=== PATIENT | female | born 1935 | race Caucasian/White ===

== ENCOUNTER → 2016-09-29 | Outpatient (CLI) | payer MEDICAID, MEDICARE ==
[~2016-09-29] MED LIST: /DULO30CA OR; /GLIP10TAB PO; /MOXI40TA PO; /NEPHROTA PO; /PANT40TA OR; /PRAV20TA PO; /QUET10TA PO; /QUET25TA PO; ASPI81TA7 PO; BABY81CH PO; BENA25CA PO; CIPRO PO; CLON0.1D3 TD; CLOP75TA2 PO; DARB30SYRN IV; DIPH50CA PO; GEMF600T OR; GLIP5TAB2 OR; GLIP5TAB77 OR; HEPARIN 1,000 UNITS/ML 10ML VIAL (FOR RADIOLOGY& DIALYSIS ONLY) As Ordered ONE; HYDR4TAB OR; INSULIN LANTUS SC; ISOVUE-300 61% 50ML VIAL (Q9967) As Ordered ONE; KETO5OPD OD; LEVAQUIN; LIDOCAINE W/EPINEPHRINE 1% 20ML VIAL As Ordered ONE; LISI20TA5 OR; LISI40TAB PO; LOPR50TA PO; LOVAZA PO; NEPHRO-VITE RX PO; NEUR100C OR; NIAS500T2 OR; NORV5TAB PO; OMEP20CA3 PO; OMEP20TA7 PO; PHOSLO667 MG OR; PLAV75TA2 OR; PREDOPD OD; RENVELA PO; SENS30TA PO; SEVE80TAB PO; SODIUM BICARBONATE 8.4% INJ 50MEQ 50 ML VIAL As Ordered ONE; SYNT25TA PO; TRIC145T19 OR; TUMS500C PO; TYLE325T5 PO; ULTR50TA PO; VANC25CA IV; VITA500047 PO; VITAMIN D50000 UNT OR; ZOCO40TA OR; [UNRECOGNIZED DRUG - CODE] OR; fentaNYL 100 MCG/2 ML INJECTION (J3010) As Ordered ONE; santyl TOP
--- NOTE | 2016-09-29 14:13 | REPKIM ---
CLINICAL HISTORY: Patient with history of end stage renal disease is receiving on going hemodialysis via a tunneled hemodialysis catheter in the right internal jugular vein. The existing catheter was partially pulled back with its cuff outside the skin tract. Patient presents with catheter dysfunction. PROCEDURE PERFORMED: 1. Superior Vena Cavagram/Catheter injection 2. Fibrin Sheath Disruption 3. Tunneled Dialysis Catheter Replacement INTERVENTIONALIST: Melida Gongora MD CONSENT: The risks, benefits and alternatives to the procedure were explained to the patient and informed written consent was obtained. MEDICATIONS: Local Lidocaine 2% CONTRAST: 10 mL Isovue 300 EBL: 15 mL FLUORO TIME: 2.6 minutes DEVICES USED: 12 mm x 4cm balloon Lot#[id number], 14.5F 19-cm Palindrome Catheter Lot#[id number] PROCEDURE/FINDINGS: The patient was brought to the interventional radiology suite where a timeout procedure was performed. The patient was placed in the supine position and the right upper chest and existing indwelling catheter prepped and draped in a sterile fashion. Local anesthesia to the catheter exit site was administered. Heparin contents in the existing catheter ports were discarded. A hydrophilic guidewire was introduced through one of the ports of the catheter, and under fluoroscopy advanced across the right atrium into the inferior vena cava. The existing catheter was pulled back until its tip was just within the accessed vein. Contrast was injected and a central venogram was performed. This showed diffuse fibrin sheath. The superior vena cava is patent. The existing catheter was then removed over the guidewire in its entirety. Over the guidewire, a 12- mm diameter balloon was advanced and mechanical fibrin sheath disruption by inflation of the balloon was performed. A new 19-cm [tip to cuff] length, 14.5- Portuguese double lumen Palindrome catheter was advanced over the guidewire. Guidewire was removed. The catheter was secured at the skin exit site with 2-0 Prolene suture. There is free aspiration of blood from all ports of the catheter. The ports of the catheter were locked with heparin (concentration 1000 units/cc). A sterile dressing was then applied. Post procedure chest radiograph shows the tip of the catheter is at the right atrium. The patient tolerated the procedure well with no immediate complications. This procedure was performed with fluoroscopic guidance. Dr. Gongora was present. IMPRESSION: Fibrin sheath disruption/maceration and Tunneled hemodialysis catheter replacement as discussed above. The new catheter is ready for use. cc: Nicci Enriquez MD MTDD
== END | disposition home or self-care (01) ==
LOC: M IRPRO 11:59
PROVIDERS: ATTEND Internal Medicine Nephrology
DX: T82.42XA Displacement of vascular dialysis catheter, initial encounter (principal); N18.6 End stage renal disease
CPT/HCPCS: 36581; 36595; C1725; C1750; C1769; Q9967

== ENCOUNTER 2016-11-27 12:24 | Inpatient (IN) | payer MEDICARE, MEDICAID ==
[~2016-11-27] VITALS: Ht 157.5 cm; Wt 70.2 kg
[~2016-11-27 12:24] MED LIST changes: -HEPARIN 1,000 UNITS/ML 10ML VIAL (FOR RADIOLOGY& DIALYSIS ONLY) As Ordered ONE; -ISOVUE-300 61% 50ML VIAL (Q9967) As Ordered ONE; -LIDOCAINE W/EPINEPHRINE 1% 20ML VIAL As Ordered ONE; -SODIUM BICARBONATE 8.4% INJ 50MEQ 50 ML VIAL As Ordered ONE; -fentaNYL 100 MCG/2 ML INJECTION (J3010) As Ordered ONE
[2016-11-27 15:21] VITALS: BP 127/64
[2016-11-27 15:49] LABS: MEAN CORPUSCULAR HEMOGLOBIN 33.4 pg (27.0-33.0); MEAN CORPUSCULAR HGB CONC 31.8 g/dl (32.0-36.5); RED CELL DISTRIBUTION WIDTH 16.1 % (11.5-14.5); WHITE BLOOD COUNT 8.6 K/mm3 (4.0-10.0)
[2016-11-27 15:58] LABS: INR 1.13
[2016-11-27 16:25] LABS: ALBUMIN 3.2 GM/DL (3.2-5.2); CALCIUM LEVEL 9.6 MG/DL (8.8-10.2); CREATININE FOR GFR 6.93 MG/DL (0.55-1.02); PHOSPHORUS LEVEL 4.1 MG/DL (2.5-4.9); POTASSIUM SERUM 5.1 MEQ/L (3.5-5.1)
[2016-11-27] MEDS ORDERED: HEPARIN 1,000 UNITS/ML 10ML VIAL (FOR RADIOLOGY& DIALYSIS ONLY) XX ONE (16:30)
[2016-11-27] MEDS ORDERED: DARBEPOETIN 300 MCG/0.6 ML *DIALYSIS* SYRINGE (J0882) IV SCH (16:30)
[2016-11-27] MEDS: HumaLOG INSULIN (NovoLOG) PER UNIT SC SCH ×2 (17:30→21:00)
--- NOTE | 2016-11-27 17:57 | HPE ---
DATE OF ADMISSION: 11/27/2016 An 81-year-old white female who is a dialysis patient. She presented this morning to [facility] with shortness of breath, worsening of her chronic anemia and heme-positive stools. She was felt to be in congestive heart failure. Today was a day she was going to be scheduled for dialysis. She was transferred to [facility] for dialysis and blood transfusion. She did not have an EKG and I have one of those ordered. PERTINENT LABORATORY DATA: BUN of 73, creatinine of 6, troponin was 0.037. Her hematocrit was 23.4. She denies a prior history of congestive heart failure. Denies a history of known coronary disease, but I believe she does have some cognitive deficits. She does have issues with memory and I note among her medications she is on Aricept. MEDICATIONS: - baby aspirin. - She is on Sensipar 30 mg biweekly - Plavix 75 mg daily - Synthroid 25 mcg daily - metoprolol 25 mg daily - vitamin D 5000 units by mouth every - Aricept 10 mg a day - lisinopril 5 mg a day - pravastatin 10 mg a day - Pepcid 20 mg a day - Imdur 30 mg a day - Renvela 80 mg three times a day - amlodipine one tablet a day - glipizide one tablet a day - Seroquel one tablet a day The last several medications do not have a strength. - vitamin B complex ALLERGIES: See lists multiple allergies - CEPHALEXIN, CLONIDINE, CODEINE, MORPHINE, OXYCODONE AND PENICILLIN and CROSS REACTORS. However, I got a note from [place] that says she can take amoxicillin with no problem. PAST MEDICAL HISTORY: She has had left mastectomy for cancer in the early 70s. She is not sure how she was treated, but she has not had any followup. 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 Diabetes, hypertension, hyperlipidemia, toes amputated on her right foot for neuropathy, cholecystectomy, presumptive dementia, chronic anemia, secondary hyperparathyroidism, hypertension. She also has a history of diverticulosis and diverticulitis. FAMILY HISTORY: Irrelevant. SOCIAL HISTORY: She lives with a family member. She had been a smoker, stopped smoking many years ago. No alcohol. REVIEW OF SYSTEMS: General: No constitutional symptoms. HEENT: She denies any issues. Denies issues with her eyesight. Cardiopulmonary: She is short of breath. No chest pain. Gastrointestinal (GI): She is hemoccult positive stools, worsening anemia. No abdominal symptoms. Genitourinary (): Negative. Musculoskeletal: Leg cramps during dialysis. Vascular: Negative. Hematologic: Anemia. Psychiatric: She is on Seroquel for something. She does have associated dementia, I believe. Dermatologic: Negative. PHYSICAL EXAMINATION Blood pressure 104/80, pulse is 74, respirations 16, saturations are 98% on 2 liters. General appearance: Overweight white female. HEENT: Unremarkable. Difficult to assess neck veins. Neck is very full. She might be someone we might want to screen for obstructive sleep apnea (ELIZABETH). She also has as a small oral airway. Heart: Regular. We have an EKG pending. Chest: Bilateral rales. No dullness. She has a dialysis catheter right subclavian area. Abdomen: Obese, otherwise normal. Extremities: Without clubbing, cyanosis or edema except for chronic edema left arm. She does have trace ankle edema bilaterally. Toes of the right foot are absent. Neurologic: She does have diabetic neuropathy and mild dementia. IMPRESSION/PLAN: 1. Congestive heart failure (CHF). Will check EKG and cardiac enzymes. The patient will read receive an echocardiogram. 2. Anemia exacerbating underlying CHF. The patient is scheduled for blood transfusion. 3. Chronic renal failure with volume overload; she is having dialysis. 4. Secondary hyperparathyroidism. The patient continues on Renvela and Sensipar. 5. Suspect obstructive sleep apnea (ELIZABETH). It might be worthwhile to do an ELIZABETH screen. 6. History of breast cancer with left mastectomy. 7. Hypertension. She is on several medications for same. 8. Hyperlipidemia. Will continue her on her statin. 9. Diabetes with complications. She is on glipizide. This probably is not the best agent in somebody with end-stage renal disease. Will monitor sugars. 10. Hypothyroid. She is on replacement. Will check a thyroid-stimulating hormone (TSH). ADDENDUM: The patient is on Plavix and aspirin. She is not a good historian. She vehemently denies a history of coronary artery disease or previous heart catheterization or angioplasty or stents. I see Dr. Enriquez has stopped her aspirin and Plavix. This certainly would be appropriate unless she has had a drug-eluting stent in the last 6 months. I cannot ascertain that this evening.
[2016-11-27] MEDS: (RENVELA) SEVELAMER **CARBONate** 800 MG TAB PO SCH (18:00)
[2016-11-27] MEDS ORDERED: GLUCOSE 4 GM CHEW TABLET PO PRN (18:00)
[2016-11-27] MEDS ORDERED: DEXTROSE 50% 50 ML SYRINGE IV PRN (18:00)
[2016-11-27] MEDS ORDERED: GLUCAGON FOR INJ 1 MG VIAL (J1610) SC PRN (18:00)
[2016-11-27] MEDS ORDERED: traMADol 50 MG TAB PO PRN (19:00)
[2016-11-27] MEDS ORDERED: METO1TAB87 PO (19:51)
[2016-11-27] MEDS ORDERED: DRIS50002 PO (19:51)
[2016-11-27] MEDS ORDERED: FAMO20TA PO (19:51)
[2016-11-27] MEDS ORDERED: LISI-542 PO (19:51)
[2016-11-27] MEDS ORDERED: PRAV10TA4 PO (19:51)
[2016-11-27] MEDS ORDERED: QUET1TAB8 PO (19:51)
[2016-11-27] MEDS ORDERED: CINA30TA PO (19:51)
[2016-11-27] MEDS ORDERED: CLOP75TA2 PO (19:51)
[2016-11-27] MEDS ORDERED: GLIP5TAB8 PO (19:51)
[2016-11-27] MEDS ORDERED: LEVO25TA5 PO (19:51)
[2016-11-27] MEDS ORDERED: NORV5TAB PO (19:51)
[2016-11-27] MEDS ORDERED: RENV2TAB PO (19:51)
[2016-11-27] MEDS ORDERED: DONETAB6 PO (19:51)
[2016-11-27] MEDS ORDERED: RENATAB5 PO (19:51)
[2016-11-27] MEDS ORDERED: ASPI1TAB PO (19:51)
[2016-11-27] MEDS ORDERED: CRAN450T4 PO (19:51)
[2016-11-27] MEDS ORDERED: ISOS30TA4 PO (19:51)
[2016-11-27] MEDS ORDERED: HEPARIN DRIP 25,000 UNITS in APPROPRIATE DILUENT 1 EA IV SCH (20:19)
[2016-11-27 20:23] LABS: ABG BASE EXCESS -4.5 (-2.0-2.0); ABG HCO3 21.3 MEQ/L (22.0-26.0); ABG PARTIAL PRESSURE CO2 42.3 mmHg (35.0-45.0); ABG PARTIAL PRESSURE O2 318.2 mmHg (75.0-100.0); ABG STANDARD HCO3 20.8 MEQ/L (22.0-26.0); ABG TOTAL CO2 22.6 MEQ/L (23.0-31.0)
[2016-11-27] MEDS ORDERED: HEPARIN SOD (PORCINE) 5000 UNITS/ML VIAL IV PRN (20:30)
[2016-11-27] MEDS ORDERED: HEPARIN SOD (PORCINE) 5000 UNITS/ML VIAL IV ONE (20:30)
[2016-11-27] MEDS ORDERED: MORPHINE 2 MG/ML 1ML SYRINGE IV PRN (20:45)
[2016-11-27 20:50] LABS: MEAN CORPUSCULAR HEMOGLOBIN 32.6 pg (27.0-33.0); MEAN CORPUSCULAR HGB CONC 30.7 g/dl (32.0-36.5); MEAN CORPUSCULAR VOLUME 106.4 fl (80.0-96.0); RED CELL DISTRIBUTION WIDTH 16.7 % (11.5-14.5); WHITE BLOOD COUNT 9.2 K/mm3 (4.0-10.0)
[2016-11-27 20:54] VITALS: BP 133/66
[2016-11-27 20:56] LABS: INR 1.06
[2016-11-27 21:07] LABS: ALBUMIN 3.3 GM/DL (3.2-5.2); ALBUMIN/GLOBULIN RATIO 0.8 (1.00-1.93); BILIRUBIN,TOTAL 0.4 MG/DL (0.2-1.0); CALCIUM LEVEL 9.1 MG/DL (8.8-10.2); CREATININE FOR GFR 3.9 MG/DL (0.55-1.02); GLOMERULAR FILTRATION RATE 11.7 (>32); POTASSIUM SERUM 4.1 MEQ/L (3.5-5.1); TOTAL PROTEIN 7.4 GM/DL (6.4-8.2)
[2016-11-27] MEDS: PANTOPRAZOLE 40MG INJ (PROTONIX) (C9113) IV SCH (21:37)
[2016-11-27] MEDS: METOPROLOL TART 25 MG TABLET PO SCH (21:38)
[2016-11-27] MEDS: QUEtiapine FUMARATE 25 MG TAB PO SCH (21:38)
[2016-11-27] MEDS: PRAVASTATIN 10 MG TAB PO SCH (22:47)
--- NOTE | 2016-11-27 22:50 | REP ---
Clinical: Shortness of breath. Comparison: 07/02/2012. Findings: Double-lumen dialysis catheter with tip in the right atrium. The cardiac silhouette is normal. Right suprahilar mass lesion cannot be excluded. Diffuse chronic interstitial changes noted including linear scarring at the left base. No obvious effusion. No pneumothorax. Skeletal structures intact. Impression: Right suprahilar mass suspected. Chest CT with contrast recommended. Underlying chronic interstitial changes. Signed by David Ledesma MD 11/27/2016 10:42 P
[2016-11-27 23:59] VITALS: BP 110/82
--- NOTE | 2016-11-27 23:59 | CR ---
DATE OF CONSULTATION: 11/27/2016 REQUESTING PHYSICIAN: Dr. Mena CONSULTING PHYSICIAN: Dr. Enriquez REASON FOR CONSULTATION: Management of end-stage renal disease, hemodialysis, and fluid overload. CHIEF COMPLAINT: Patient was transferred from [facility] for worsening of her anemia along with melanotic stools and shortness of breath, and today is patient's day of dialysis. HISTORY OF PRESENT ILLNESS: Barbra Goetz is an 81-year-old female with a past medical history significant for end-stage renal disease, on hemodialysis every Sunday, Sunday, Sunday. Today is her day of dialysis. When patient got up today morning, she was having worsening shortness of breath. Patient was taken to the emergency room at [facility] by her family members. Over there, as per emergency room (ER) documentation, patient was short of breath. She was found to have Hemoccult-positive melanotic stools. She was significantly anemic over there with a hemoglobin of 7.1. Since today, patient could not get dialysis as outpatient, and she needed blood transfusion as well, and she was short of breath. The ER physician got in touch with the nephrology service and requested the patient to be transferred to [facility] for treatment of anemia, shortness of breath, and need to do hemodialysis with blood transfusion. When patient arrived to [facility], she was not in any apparent respiratory distress; however, because of patient's abnormal labs and patient missing hemodialysis today, she got our urgent attention. I went to the hospital, saw the patient, arranged her urgent hemodialysis, and she was started on dialysis as per regular schedule and her regular daily regimen. I ordered 2 units of packed red blood cells (PRBC) transfusion as well; however, while she was getting hemodialysis blood could not be arranged because of the presence of antibodies. When I examined the patient at the bedside, she was afebrile and hemodynamically stable. She was not in any apparent distress at that time. PAST MEDICAL HISTORY: 1. End-stage renal disease, on hemodialysis. 2. History of cancer (CA) breast, status post left mastectomy. 3. Chronic left upper arm lymphedema. 4. Diabetes mellitus, type 2. 5. History of congestive heart failure in the past. 6. History of dementia. 7. Hypothyroidism. 8. Hypertension. 9. Hyperlipidemia. PAST SURGICAL HISTORY: 1. Left-sided mastectomy. 2. Status post placement of right internal jugular (IJ) tunneled hemodialysis catheter. 3. 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 ALLERGIES: Patient is allergic to CALCIUM ACETATE, CEPHALOSPORIN, CLONIDINE, CODEINE, HYDROCODONE, MORPHINE, OXYCODONE, PENICILLINS. MEDICATIONS: On transfer from [facility] included: - aspirin 81 mg by mouth daily - Sensipar 30 mg by mouth twice a week - Plavix 75 mg by mouth daily - levothyroxine 25 mcg by mouth daily - metoprolol 25 mg by mouth daily - vitamin D 50,000 units by mouth once a week - donepezil 10 mg by mouth daily - lisinopril 5 mg by mouth daily - pravastatin 10 mg by mouth daily - famotidine 20 mg by mouth daily - isosorbide 30 mg by mouth daily - Renvela 800 mg by mouth three times a day - amlodipine one tablet daily - glipizide one tablet daily - Seroquel one tablet daily - Brittney-Serena one tablet daily FAMILY HISTORY: No significant family history of end-stage renal disease requiring hemodialysis. SOCIAL HISTORY: Patient is a former smoker. She denies any illicit drug use or alcohol abuse, and she lives with her family. REVIEW OF SYSTEMS: CONSTITUTIONAL: Patient denies any fevers, chills, or rigors. EYES: She denies any blurry vision or double vision. ENT: She denies any dysphagia, odynophagia, or ear discharge. CARDIOVASCULAR: Patient reported shortness of breath this morning, but she denies any chest pain or palpitations. RESPIRATORY: Patient reported shortness of breath when she got up this morning, but she denies any cough or wheezing. GASTROINTESTINAL: She denies any nausea, vomiting, or constipation. GENITOURINARY: She denies any dysuria or hematuria. MUSCULOSKELETAL: Patient reported having leg cramps during ultrafiltration while she is being dialyzed. HEMATOLOGICAL/ONCOLOGICAL: Patient reports anemia. Her hemoglobin was 7.1 on being transferred over here. PSYCHIATRIC: Patient has history of dementia and anxiety disorder. Again, she denies any rashes or ulcers. CENTRAL NERVOUS SYSTEM: She denies any seizures or strokes. All other review of systems is negative. PHYSICAL EXAMINATION: GENERAL: Patient is awake, alert, oriented times three, lying in bed getting hemodialysis done, having intermittent leg cramps. VITAL SIGNS: Temperature is 97.7 degrees Fahrenheit, blood pressure is 127/64, pulse is 80, respiratory rate of 20, saturating 99% on nasal cannula at 2 liters. HEAD AND NECK: Extraocular muscles intact. Pupils equally round and reactive to light. Mucous membranes are moist. Neck is supple. I could not assess the jugular venous distention (JVD) because of patient's body habitus. CARDIOVASCULAR: S1, S2, regular rate. No murmur, rub, or gallop. Patient has left upper arm lymphedema, and patient has 2+ pitting edema of the bilateral lower extremities. RESPIRATORY: Chest is clear to auscultation bilaterally. Mildly decreased breath sounds at the bases. Otherwise no rales or rhonchi. ABDOMEN: Abdomen is obese, soft. Positive bowel sounds. Nontender. No ascites. No organomegaly. EXTREMITIES: Patient has right transmetatarsal amputation, and she has lymphedema of the left upper extremity because of left-sided mastectomy and lymph node dissection. CENTRAL NERVOUS SYSTEM: No focal neurological deficit. Power is 5/5 in bilateral upper extremities. PSYCHIATRIC: Normal mood and affect. SKIN: No rashes or ulcers. ARTERIOVENOUS ACCESS: Patient has a right IJ tunneled hemodialysis catheter. LABORATORY REVIEW: CBC showed a WBC 8.6, hemoglobin is 7.4, hematocrit is 23.2, platelets are 243. INR is 1.06. D-dimer is 2783. BMP done today showed sodium 140, potassium 5.1, chloride 102, bicarbonate 28, BUN 79, creatinine is 6.9, calcium 9.6, phosphorus 4.1. Troponin 0.04. Albumin is 3.2. IMAGING: A chest x-ray done today in the evening: Positive mild vascular congestion and right-sided suprahilar opacity. Official report is still pending. CURRENT INPATIENT MEDICATIONS: - Sensipar 30 mg by mouth Sunday and Sunday - Aranesp 300 mcg intravenous (IV) was given with hemodialysis - Aricept 10 mg by mouth daily - insulin sliding scale - Imdur 30 mg by mouth daily - levothyroxine 25 mcg by mouth daily - lisinopril 5 mg by mouth daily - metoprolol 25 mg by mouth twice a day with holding parameters - Protonix 40 mg IV every 12 hours - pravastatin 10 mg at bedtime - Seroquel 25 mg by mouth at bedtime - Renvela 800 mg by mouth with meals - tramadol 50 mg every 8 hours for pain ASSESSMENT: An 81-year-old female with past medical history of end-stage renal disease, on hemodialysis, history of left-sided mastectomy, chronic left upper arm lymphedema, admitted at this time because of worsening shortness of breath, symptomatic anemia, and positive Hemoccult stools as per transfer records from [facility]. PLAN: 1. Shortness of breath. Patient clinically has lower extremity edema, and her left upper arm lymphedema is chronic; however, we tried to emergently hemodialyze this patient. We tried to do the ultrafiltration, but patient became very symptomatic with severe leg cramps. She was in significant pain, and she also kept on dropping blood pressure. We could not successfully remove much fluid off of her. Total ultrafiltration after fluid boluses was 600 mL only. Patient needs further workup of her shortness of breath. She needs CT chest with IV contrast to rule out the possibility of infiltrate versus obstruction versus pulmonary embolism (PE). I will re-evaluate the patient tomorrow morning. If needed, she will get further hemodialysis. 2. Symptomatic anemia with possible GI bleed. I ordered 2 units of PRBC transfusion to be given with hemodialysis today; however, blood could not be arranged, because patient has antibodies positive. Patient can get blood transfusion whenever it is arranged, and if needed we can do another hemodialysis session tomorrow morning. I already discussed the case with Dr. Escalera. He recommended keeping the patient on liquid diet. Continue IV Protonix, and Dr. Escalera will order the preparation and will plan to do upper and lower GI endoscopy on 11/29/2016. 3. Hypertension. Patient's blood pressure is acceptable at this time. I have placed her on a lower dose of antihypertensive regimen because of possible GI bleed. Continue current dose of isosorbide 30 mg by mouth daily, lisinopril 5 mg by mouth daily, metoprolol 25 mg by mouth twice a day, and all of these medications have holding parameters on them. 4. Secondary hyperparathyroidism. Continue current dose of Sensipar 30 mg by mouth Sunday and Sunday. 5. Diabetes mellitus, type 2. Patient's oral hypoglycemics are on hold. She is currently on insulin sliding scale. Continue sliding scale at this moment. 6. Hypothyroidism. Continue current dose of levothyroxine 25 mcg by mouth daily. 7. Chronic kidney disease, mineral bone disease. Continue current dose of Renvela 800 mg by mouth three times a day with meals. 8. History of dementia. Continue current dose of Aricept 10 mg by mouth daily. DISPOSITION: Patient needs to stay in the progressive care unit (PCU) until further workup for etiology of her shortness of breath is done. If patient becomes more symptomatic, she can be placed on bilevel positive airway pressure (BiPAP). I shall re-evaluate the patient tomorrow morning for any need to do further hemodialysis. The plan of care was discussed with Dr. Mena and with the on-call hospitalist today in the evening, Dr. Poole.
[2016-11-28] VITALS (12 sets, daily range): BP systolic 99–161; BP diastolic 55–92
[2016-11-28 00:38] LABS: MEAN CORPUSCULAR HEMOGLOBIN 33.3 pg (27.0-33.0); MEAN CORPUSCULAR HGB CONC 31.4 g/dl (32.0-36.5); RED CELL DISTRIBUTION WIDTH 16.2 % (11.5-14.5); WHITE BLOOD COUNT 9.2 K/mm3 (4.0-10.0)
[2016-11-28] MEDS ORDERED: FUROSEMIDE 40 MG/4 ML VIAL (J1940) IV ONE (04:00)
[2016-11-28] MEDS: LEVOTHYROXINE 25MCG TABLET (0.025MG) PO SCH (06:43)
[2016-11-28] MEDS: (RENVELA) SEVELAMER **CARBONate** 800 MG TAB PO SCH ×3 (06:43→17:10)
[2016-11-28] MEDS: PANTOPRAZOLE 40MG INJ (PROTONIX) (C9113) IV SCH ×2 (06:43→22:28)
[2016-11-28] MEDS: HumaLOG INSULIN (NovoLOG) PER UNIT SC SCH ×4 (07:34→21:00)
[2016-11-28] MEDS ORDERED: ISOVUE-370 76% 100ML VIAL (Q9967) As Ordered ONE (08:45)
[2016-11-28] MEDS ORDERED: METOPROLOL TART 25 MG TABLET PO SCH (09:00)
--- NOTE | 2016-11-28 09:17 | REP ---
Clinical: Right suprahilar mass. Technique: Axial contrast enhanced images from the thoracic inlet to the upper abdomen using 100 ml Isovue 370 intravenous contrast material with coronal and sagittal re-formations. Findings: A 7.5 x 7.5 x 6.9 cm middle mediastinal mass is identified arising above the right main pulmonary artery having central calcification and mild enhancement as well as mass effect on the adjacent structures including trachea and vasculature. Further soft tissue within the mediastinum suggests elements of conglomerate lymph nodes. Differential diagnosis includes, but is not limited to lymphoma, metastatic disease, bronchogenic neoplasm as well as germ cell tumors. Extensive atherosclerotic changes to the thoracic aorta and coronary arteries noted along with mild cardiomegaly. No pericardial effusion is appreciated. The lung gilmore demonstrate diffuse chronic interstitial changes with scattered scarring and fibrosis. 1.6 cm mass lesion identified in the posterior paramediastinal right upper lobe (image 35) which may reflect satellite lesion. The subtle scattered areas of ground-glass opacity and smaller densities are nonspecific. Bibasilar atelectasis and small pleural effusions are identified. Musculoskeletal structures demonstrate age-related degenerative changes. Aorta and vasculature demonstrate extensive atherosclerotic changes. An abdominal aortic aneurysm measures 4.8 cm maximal AP diameter and appears to extend below the level of the examination. Impression: 1. Large right suprahilar mediastinal mass with areas of subtle enhancement and scattered calcifications. Differential diagnosis includes lymphoma, metastatic disease, bronchogenic neoplasm as well as germ cell tumors. A smaller 1.6 cm similar lesion is identified in the posterior right paramediastinal right upper lobe along with suspected subtle conglomerate mediastinal and hilar adenopathy. 2. Bibasilar atelectasis/consolidations with small pleural effusions and underlying diffuse chronic changes. 3. Abdominal aortic aneurysm along with extensive atherosclerotic changes to the vasculature. Signed by David Ledesma MD 11/28/2016 09:09 A
[2016-11-28 10:04] LABS: MEAN CORPUSCULAR HGB CONC 32.9 g/dl (32.0-36.5); RED CELL DISTRIBUTION WIDTH 19.2 % (11.5-14.5); WHITE BLOOD COUNT 7.7 K/mm3 (4.0-10.0)
[2016-11-28 10:23] LABS: MEAN CORPUSCULAR VOLUME 98.8 fl (80.0-96.0)
[2016-11-28] MEDS: METOPROLOL TART 25 MG TABLET PO SCH ×2 (10:25→22:27)
[2016-11-28] MEDS: DONEPEZIL 5 MG TAB PO SCH (10:25)
[2016-11-28] MEDS ORDERED: LIDOCAINE 1% MDV 20ML VIAL As Ordered ONE (13:31)
--- NOTE | 2016-11-28 13:50 | CR ---
DATE OF CONSULTATION: 11/28/2016 PULMONARY CRITICAL CARE SERVICE CONSULTATION I was called to see this patient regarding increasing dyspnea. She was admitted from [facility], where she presented with shortness of breath, was found anemic, and was found to have an occult positive stool test. Having been brought to [facility], she was given a trial of dialysis but developed severe leg cramps. The patient feels that her dyspnea has developed slowly over the past several weeks. Her ability to ambulate is limited by orthopedic constraints. She does admit to some cough. No sputum production. No chest pain. She has had no hemoptysis. Her appetite has been quite good. She has no night sweats. Her past pulmonary history includes 15 pack-years of smoking. She quit 25 years ago. She has no occupational risks identified. No history of tuberculosis exposure. She has never suffered a deep venous thrombosis (DVT) nor a pulmonary embolism. Her past medical history is quite extensive with psychiatric disease, hypertension, diabetes, chronic kidney disease dialysis dependent, congestive heart failure, atherosclerotic vascular disease status post bilateral carotid surgery, breast cancer status post left-sided mastectomy, cerebrovascular accident (CVA) with right-sided weakness, lymphedema in left upper extremity, amputation transtarsal right foot. hypothyroidism, and dementia. FAMILY HISTORY: Includes primarily cardiac disease. SOCIAL HISTORY: A reformed smoker. She has a 15 pack-year history, quit 25 years ago. Does not take alcohol. Lives with her supportive family. She has four adult children in the area. REVIEW OF SYSTEMS: Constitutional: She reports no significant changes in her appetite or her weight. HEENT: She has some mild visual impairment. No difficulty with smell or taste. Cardiovascular: She denies typical anginal-type chest pain, orthopnea, or paroxysmal nocturnal dyspnea. Gastrointestinal (GI): There is no history of nausea and vomiting. She is prone to constipation and no history of diarrhea. Genitourinary (): She has chronic renal failure, is on dialysis for at least the past 7 years. Endocrine: She has a history of diabetes, hypothyroidism on replacement therapy, and has had pseudohyperparathyroidism. Neurologic: There is a history of prior CVA with right upper extremity weakness, for the most part resolved. There is no history of seizure disorder. Musculoskeletal: She has diffuse arthritis, required an amputation of her right foot, and uses a walker to ambulate. On physical examination, she appears to be awake and alert. She is oriented to place and person. Her temperature is 98, pulse rate 75, respirations 16, blood pressure 115/70. HEENT: Oral and nasal mucosa are pink. There is a right-sided dialysis catheter indwelling. There does appear to be fullness in the right supraclavicular fossa and a palpable mass there. Jugular veins are somewhat difficult to appreciate. The carotid upstroke is sluggish. There is evidence of remote carotid surgery. Heart sounds are regular without appreciable murmur. Her breath sounds are diminished in the bases. No focal sounds are appreciated. Chest: Is symmetric. Moves symmetrically. Abdomen is soft and obese. Extremities: She has a right transtarsal amputation of her foot. Peripheral pulses quite diminished but palpable in the wrists. DIAGNOSTIC STUDIES: Her white cell count is 7.7, hemoglobin 9.5, hematocrit 29, platelet count 189,000. Sodium 135, potassium 4.1, chloride 100, CO2 25, BUN 36, creatinine 3.9, glucose 233, lactic acid on admission was 2.9, repeat 1.5. Her arterial blood gases show a pH of 7.32, pCO2 42, pO2 318. PT is 13, PTT 28. Chest x-ray and CT scans were reviewed showing a very large mediastinal mass. IMPRESSION: 1. Large mediastinal mass with vascularity. 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 2. Remote smoking history. 3. Multiple medical comorbidities. RECOMMENDATION: I discussed the case with nephrology. We will proceed with attempted transthoracic needle aspiration to establish histopathologic diagnosis of the mediastinal mass. If successful, we will pursue appropriate therapy. If unsuccessful, we will further consider fiberoptic bronchoscopy with endobronchial ultrasound and/or mediastinoscopy to establish definitive diagnosis, given the significant degree of airway collapse. Thank you for allowing me to consult in the care of this patient. If there are questions, please do not is contact me. Adam Colby, DO
--- NOTE | 2016-11-28 14:42 | IPNPDOC ---
Subjective Date Seen The patient was seen on 11/28/16. Subjective Chief Complaint/HPI The patient is a 81-year-old female admitted with a reason for visit of Fluid Overload And Symptomatic Anemia. General: Denies: Chills, Night Sweats Constitutional: Denies: Chills, Fever Eyes: Denies: Pain, Vision change ENT: Denies: Head Aches, Ear Pain Skin: Denies: Rash, Lesions Pulmonary: Reports: Dyspnea, Cough Cardiovascular: Denies: Chest Pain, Palpitations Gastrointestinal: Denies: Nausea, Vomiting, Abdominal Pain Genitourinary: Denies: Dysuria, Frequency Hematologic: Denies: Bruising, Bleeding Excessively Objective Physical Examination General Exam: Positive: Alert, Cooperative, No Acute Distress ENT Exam: Positive: Atraumatic, Mucous membr. moist/pink Chest Exam: Positive: Rales (faint bibailar rales noted on auscultation), Diminished, Negative: Wheezing Heart Exam: Positive: Rate Normal, Normal S1, Normal S2 Abdomen Exam: Positive: Soft, Negative: Tenderness Extremity Exam: Positive: Other (LUE swelling, chronic lymphedema), Negative: Tenderness Assessment /Plan Plan/VTE VTE Prophylaxis Ordered?: Yes Plan Right Suprahilar Mass CT Chest noted, large Mediastinal Mass 7.5 x 7.5 cm concerning for possible malignancy Pulmonary consult appreciated--We will send the patient for a biopsy with IR today We will follow up with the results and discuss options with the patient and her son ESRD on HD Receives HD on M, , The patient did have Dialysis yesterday, with ultrafiltration of about 600 cc's- -limited 2/2 hypotension, leg cramping Appreciate Nephrology's assistance with this Symptomatic Anemia Hgb noted to be 6.9 Patient with Heme-positive stool in the ER ASA, Plavix on Hold The patient has received 2 Units of PRBC's and her Hgb is now 9.5 GI aware of the case--has recommended clear liquid diet at this time We will continue to monitor the patient's Hgb Elevated Troponins likely 2/2 Demand Ischemia from Symptomatic Anemia EKG with no acute ST-T changes Peak Troponin of 0.20 Patient w/o any complaints of chest pain at this time 2D ECHO pending We will cont to monitor the patient on Telemetry Hypertension, stable Continue lisinopril, Coreg, isosorbide mononitrate Dyslipidemia Continue statin Diabetes mellitus Continue insulin sliding scale GERD Continue PPI Hypothyroidism Continue Synthroid Dementia Continue donepezil Depression Continue cervical History of breast cancer with left mastectomy DVT prophylaxis SCDs/TEDs (Heme Positive Stool) VS, I&O, 24H, Fishbone Vital Signs/I&O Vital Signs Date Time Temp Pulse Resp B/P (MAP) Pulse Ox O2 Delivery O2 Flow Rate FiO2 11/28/16 12:00 97.8 67 24 125/55 (78) 99 Nasal Cannula 4.0 11/27/16 20:54 50 I&O- Last 24 Hours up to 6 AM 11/28/16 05:59 Intake Total 1090 ml Output Total 672 ml Balance 418 ml Laboratory Data 24H LABS Laboratory Tests 2 11/27/16 15:30: Prothrombin Time 14.6H, Prothromb Time International Ratio 1.13, Blood Urea Nitrogen 79H, Creatinine 6.93H, Sodium Level 140, Potassium Level 5.1, Chloride Level 102, Carbon Dioxide Level 28, Anion Gap 10, Glomerular Filtration Rate 6.0L, Calcium Level 9.6, Phosphorus Level 4.1, Troponin I 0.04, Albumin 3.2 11/27/16 18:26: Bedside Glucose (Misc Panel) 128H 11/27/16 20:05: Blood Gas Bicarbonate Standard 20.8L, Arterial Blood pH 7.320L, Arterial Blood Partial Pressure CO2 42.3, Arterial Blood Partial Pressure O2 318.2H, Arterial Blood Total CO2 22.6L, Arterial Blood HCO3 21.3L, Arterial Blood Base Excess - 4.5L, Arterial Blood Oxygen Saturation 99.7H 11/27/16 20:25: Blood Urea Nitrogen 36#H, Creatinine 3.90H, Sodium Level 135L, Potassium Level 4.1, Chloride Level 100, Carbon Dioxide Level 25, Anion Gap 10, Glomerular Filtration Rate 11.7L, Calcium Level 9.1, Troponin I 0.04, Albumin 3.3, Aspartate Amino Transf (AST/SGOT) 38H, Alanine Aminotransferase (ALT/SGPT) 19, Total Creatine Kinase 81, Alkaline Phosphatase 90, Total Bilirubin 0.4, Total Protein 7.4, Creatine Kinase MB 2.6, Creatine Kinase MB Relative Index 3.20, Albumin/Globulin Ratio 0.80L 11/27/16 20:34: Prothrombin Time 13.9, Prothromb Time International Ratio 1.06, Activated Partial Thromboplast Time 28.3, D-Dimer, Quantitative 2783.5H, Lactic Acid Level 2.9*H 11/27/16 21:28: Bedside Glucose (Misc Panel) 218H 11/28/16 00:30: Lactic Acid Followup at 4 Hours 1.5, Troponin I 0.09# 11/28/16 09:25: Troponin I 0.20#H 11/28/16 11:55: Bedside Glucose (Misc Panel) 113H CBC/BMP Laboratory Tests 11/27/16 15:30 Red Blood Count 2.21 L, Mean Corpuscular Volume 105.0 H, Mean Corpuscular Hemoglobin 33.4 H, Mean Corpuscular Hemoglobin Concent 31.8 L, Red Cell Distribution Width 16.1 H, Anion Gap 10 11/27/16 20:25 Calcium Level 9.1, Aspartate Amino Transf (AST/SGOT) 38 H, Alanine Aminotransferase (ALT/SGPT) 19, Total Creatine Kinase 81, Alkaline Phosphatase 90, Total Bilirubin 0.4, Total Protein 7.4, Albumin 3.3 11/27/16 20:34 Red Blood Count 2.35 L, Mean Corpuscular Volume 106.4 H, Mean Corpuscular Hemoglobin 32.6, Mean Corpuscular Hemoglobin Concent 30.7 L, Red Cell Distribution Width 16.7 H 11/28/16 00:30 Red Blood Count 2.08 L, Mean Corpuscular Volume 106.0 H, Mean Corpuscular Hemoglobin 33.3 H, Mean Corpuscular Hemoglobin Concent 31.4 L, Red Cell Distribution Width 16.2 H 11/28/16 09:25 Red Blood Count 2.98 L, Mean Corpuscular Volume 98.8 #H, Mean Corpuscular Hemoglobin 32.0, Mean Corpuscular Hemoglobin Concent 32.9, Red Cell Distribution Width 19.2 H MISSY HARRIS MD Nov 28, 2016 14:42
[2016-11-28] MEDS ORDERED: ONDANSETRON 4MG/2ML VIAL (J2405) IV PRN (15:30)
[2016-11-28] MEDS ORDERED: ONDANSETRON 4MG/2ML VIAL (J2405) As Ordered ONE (15:34)
[2016-11-28] MEDS ORDERED: GOLYTELY SOLN 4000 ML BTL PO ONE (16:00)
--- NOTE | 2016-11-28 16:33 | REP ---
CT guided needle biopsy of mediastinal mass lesion: History: This renal dialysis patient developed shortness of breath and CT study of the chest showed a large mediastinal mass. The patient was referred for histologic sampling. Procedure: The patient and her son were interviewed and informed consent was obtained. The patient was placed on the CT table and initial planning CT images were acquired. In order to avoid the brachiocephalic vein, and internal mammary artery and vein, a puncture site was chosen in the right para manubrial location to the superior aspect of the patient's mediastinal mass. This was only a centimeter or so medial to the hemodialysis tunnel catheter. This area was localized. After the patient safety time-out was articulated and agreed to, the area was prepped and draped in the usual fashion. Utilizing 9 mL of 1% lidocaine, aseptic precautions and CT guidance, a 19/20 gauge coaxial Temno cutting biopsy needle was advanced into the mediastinal mass just superior to the course of the brachial cephalic vein without significant technical difficulty. A sequence of seven core specimens were retrieved and submitted to pathology for analysis. Postprocedure imaging shows no evidence of pneumothorax or mediastinal hematoma. The patient tolerated the procedure well. Some subcutaneous oozing was encountered at the skin knick and this was controlled with manual compression. A new dressing was applied over the tunnel catheter. The patient tolerated the procedure well. She had an episode of emesis just prior to the procedure and another episode of emesis just following the procedure. Impression: CT-guided needle biopsy of the patient's large mediastinal mass. Signed by Aleks Marshall MD 11/28/2016 05:54 P
[2016-11-28] MEDS: LISINOPRIL 5 MG TAB PO SCH (17:09)
[2016-11-28] MEDS: ISOSORBIDE MON. (IMDUR) 30 MG XR TAB PO SCH (17:10)
[2016-11-28] MEDS ORDERED: ALPRAZolam 0.25 MG TAB PO SCH (18:00)
--- NOTE | 2016-11-28 19:47 | IPN ---
DATE: 11/28/2016 SUBJECTIVE: The patient was seen and examined at the bedside today in the morning. Last 24 hour events were noted. The patient was short of breath after hemodialysis yesterday that prompted further investigation. The patient got a chest x-ray which showed right suprahilar opacity. She subsequently got a CT scan of the chest with contrast done today in the morning which showed a large mediastinal mass. CT scan finding was discussed with the pulmonary service, Dr. Colby. I appreciate their recommendations and I ordered the CT guided biopsy of the mediastinal mass by interventional radiology (IR) today. The patient also got two units of packed red blood cell transfusion overnight. The patient continues to be in mild to moderate respiratory distress because of the large mediastinal mass. She is currently on nasal cannula at this time. The patient has made herself DO NOT RESUSCITATE (DNR) overnight, and if her respiratory status gets worse, she does not want to be intubated. REVIEW OF SYSTEMS: The patient denies any fever, chills, rigors, headache, nausea, vomiting or chest pain. She does report shortness of breath, which is not improved after dialysis. She denies any pain in abdomen, constipation or diarrhea. The patient has not moved her bowels yets. We are not able to do the fecal occult blood testing at this time. She continues to be on a clear liquid diet at this time. The rest of the review of systems is negative. OBJECTIVE: VITAL SIGNS: When I saw the patient today in the morning, her temperature was 98 degrees Fahrenheit, blood pressure 123/67, pulse 75, respiratory rate of 18, saturating 98% on nasal cannula 4 liters. INTAKE/OUTPUT: Urine output is not recorded. Ultrafiltration with hemodialysis was 672 mL. Weight on the bed scale is 70.4 kg. PHYSICAL EXAMINATION: GENERAL: The patient is awake, alert, oriented times three, in mild respiratory distress, wearing nasal cannula. HEAD AND NECK EXAM: Extraocular muscles intact. Pupils equally round and reactive to light. The patient has facial puffiness and periorbital edema. Neck is supple. There is mildly elevated jugular venous distention (JVD). CARDIOVASCULAR: S1, S2, regular rate. No murmur, rub or gallop. The patient has left upper arm lymphedema, and she has 1+ pitting edema of the bilateral lower extremities. RESPIRATORY: The patient has mild expiratory rhonchi at the bases, and she is in mild respiratory distress wearing the nasal cannula. ABDOMEN: Abdomen is soft, obese, positive bowel sounds, nontender, no ascites, no organomegaly. EXTREMITIES: The patient has a right transmetatarsal amputation. She has lymphedema of the left upper extremity because of left-sided mastectomy. CENTRAL NERVOUS SYSTEM: No focal neurological deficit. Power is 5/5 in bilateral upper extremities. PSYCHIATRIC: Normal mood and affect. AV ACCESS: The patient has a right internal jugular (IJ) tunneled hemodialysis catheter. LAB REVIEW: CBC showed a WBC of 7.7, hemoglobin 9.5, platelets are 189. BMP done last night showed sodium 135, potassium 4.1, chloride 100, bicarbonate 25, BUN 36, creatinine 3.9, glucose was 223, initial lactic acid was 2.9, which improved to 1.5. Troponins are 0.20. Albumin is 3.3. IMAGING: A CT scan of the chest done today in the morning showed a large right suprahilar mediastinal mass with areas of subtle enhancement and scattered calcifications. Differential diagnosis includes lymphoma, metastatic disease, bronchogenic neoplasm as well as germ cell tumors. A smaller 1.6 cm lesion was identified in the posterior right paramediastinal upper lobe. There was abdominal aortic aneurysm along with extensive atherosclerotic changes to the vasculature. CURRENT INPATIENT MEDICATIONS: The patient's medications were all reviewed by me. There is no change in the medications today as compared with yesterday. ASSESSMENT: An 81-year-old female with past medical history of end-stage renal disease on hemodialysis every Sunday, Sunday, Sunday, history of left-sided mastectomy in the past, chronic left upper arm lymphedema, admitted at this time because of symptomatic anemia, worsening shortness of breath and Hemoccult positive stools as reported by [facility]. The patient was found to have a large mediastinal mass on CT scan of the chest done today in the morning. PLAN: 1. Shortness of breath secondary to large mediastinal mass. Mass is compressing on the airways and possibly on the venous return through the right heart as well. I discussed the CT scan findings extensively with the pulmonary service today. I appreciate their recommendations. I also informed the patient about the presence of the mass. She agrees to have the CT-guided biopsy of the mass done today. Biopsy will be done today. Continue the nasal cannula at this time. No urgent need of hemodialysis today. 2. End-stage renal disease with hemodialysis. The patient's regular dialysis days are Sunday, Sunday, Sunday. She was dialyzed yesterday. Next hemodialysis session will be tomorrow as per her regular schedule. 3. Symptomatic anemia and possible gastrointestinal (GI) bleed. The patient was given two units of packed red blood cell transfusion overnight. Hemoglobin is stable. The patient is not having any bowel movements at this time. I have discussed this with Dr. Escalera. He wants to conservatively manage the patient at this time, especially when we are working up the mediastinal mass. The plan to do endoscopy has been canceled. I have started the patient on a renal diet. Continue to monitor CBC for now. The patient is hemodynamically stable. 4. Hypertension. Continue the low dose of lisinopril 5 mg daily, isosorbide 30 mg daily, metoprolol 25 mg by mouth twice a day with holding parameters. Blood pressure is acceptable at this time. 5. Diabetes mellitus, type 2. Continue insulin sliding scale. 6. Elevated troponins. Most likely stress-induced leakage of troponins. Aspirin and Plavix are on hold because of possibility of GI bleed and for CT-guided biopsy today. If the patient's fecal occult blood test comes back negative, she will be started on aspirin and Plavix tomorrow morning.
[2016-11-28] MEDS: QUEtiapine FUMARATE 25 MG TAB PO SCH (22:24)
[2016-11-28] MEDS: PRAVASTATIN 10 MG TAB PO SCH (22:28)
[2016-11-29 04:00] VITALS: BP 126/76
[2016-11-29 05:28] LABS: MEAN CORPUSCULAR HGB CONC 31.5 g/dl (32.0-36.5); MEAN CORPUSCULAR VOLUME 98.5 fl (80.0-96.0); RED CELL DISTRIBUTION WIDTH 19.1 % (11.5-14.5); WHITE BLOOD COUNT 8.6 K/mm3 (4.0-10.0)
[2016-11-29] MEDS: (RENVELA) SEVELAMER **CARBONate** 800 MG TAB PO SCH ×3 (05:55→17:16)
[2016-11-29] MEDS: PANTOPRAZOLE 40MG INJ (PROTONIX) (C9113) IV SCH ×2 (05:55→21:42)
[2016-11-29] MEDS: LEVOTHYROXINE 25MCG TABLET (0.025MG) PO SCH (05:55)
[2016-11-29] MEDS: DONEPEZIL 5 MG TAB PO SCH (05:55)
[2016-11-29] MEDS ORDERED: GOLYTELY SOLN 4000 ML BTL PO ONE (06:00)
--- NOTE | 2016-11-29 07:27 | ECGEPIP ---
Stationary ECG Study [facility] Test Date: 2016-11-27 Pat Name: LUCIA CALZADA Department: Room: [place] [address] Gender: F Leasing Associate: : 1935 Requested By: DEMARCUS HAN Order Number: [id number] Reading MD: Maykel Lee Measurements Intervals [place] Rate: 99 P: NC: 0 QRS: 44 QRSD: 101 T: 76 QT: 351 QTc: 452 Interpretive Statements SINUS RHYTHM NONSPECIFIC ST & T-WAVE ABNORMALITY SIMILAR TO 08/01/11 Electronically Signed On 11-29-2016 7:27:40 EDT by Maykel Lee
--- NOTE | 2016-11-29 07:41 | ECGEPIP ---
Stationary ECG Study [facility] Test Date: 2016-11-28 Pat Name: LUCIA CALZADA Department: Room: [place] [address] Gender: F Trust Manager Assistant: SHRUTHI : 1935 Requested By: MISSY HARRIS Order Number: [id number] Reading MD: Maykel Lee Measurements Intervals [place] Rate: 82 P: 42 SC: 160 QRS: 28 QRSD: 102 T: 83 QT: 383 QTc: 450 Interpretive Statements SINUS RHYTHM NONSPECIFIC T-WAVE ABNORMALITY SIMILAR 11/27/16 Electronically Signed On 11-29-2016 7:41:29 EDT by Maykel Lee
[2016-11-29 07:45] VITALS: BP 109/61
[2016-11-29 07:45] LABS: CALCIUM LEVEL 8.9 MG/DL (8.8-10.2); CREATININE FOR GFR 5.59 MG/DL (0.55-1.02); GLOMERULAR FILTRATION RATE 7.7 (>32); POTASSIUM SERUM 4.9 MEQ/L (3.5-5.1)
[2016-11-29] MEDS: ISOSORBIDE MON. (IMDUR) 30 MG XR TAB PO SCH (08:01)
[2016-11-29] MEDS: HumaLOG INSULIN (NovoLOG) PER UNIT SC SCH ×4 (08:01→21:00)
[2016-11-29] MEDS: METOPROLOL TART 25 MG TABLET PO SCH ×2 (08:02→21:00)
[2016-11-29] MEDS: LISINOPRIL 5 MG TAB PO SCH (08:02)
[2016-11-29] MEDS: ALPRAZolam 0.25 MG TAB PO PRN (10:09)
--- NOTE | 2016-11-29 11:19 | IPNPDOC ---
Subjective Date Seen The patient was seen on 11/29/16. Subjective Chief Complaint/HPI The patient is a 81-year-old female admitted with a reason for visit of Fluid Overload And Symptomatic Anemia. General: Denies: Chills, Night Sweats Constitutional: Denies: Chills, Fever Eyes: Denies: Pain, Vision change ENT: Denies: Head Aches, Ear Pain Skin: Denies: Rash, Lesions Pulmonary: Reports: Dyspnea, Denies: Cough Cardiovascular: Denies: Chest Pain, Palpitations Gastrointestinal: Denies: Nausea, Vomiting, Abdominal Pain Genitourinary: Denies: Dysuria, Frequency Hematologic: Denies: Bruising, Bleeding Excessively Objective Physical Examination General Exam: Positive: Alert, Cooperative, No Acute Distress ENT Exam: Positive: Atraumatic, Mucous membr. moist/pink Chest Exam: Positive: Rales (faint bibailar rales noted on auscultation), Diminished, Negative: Wheezing Heart Exam: Positive: Rate Normal, Normal S1, Normal S2 Abdomen Exam: Positive: Soft, Negative: Tenderness Extremity Exam: Positive: Other (LUE swelling, chronic lymphedema), Negative: Tenderness Assessment /Plan Plan/VTE VTE Prophylaxis Ordered?: Yes Plan Right Suprahilar Mass CT Chest noted, large Mediastinal Mass 7.5 x 7.5 cm concerning for possible malignancy Pulmonary consult appreciated--s/p Biopsy on 11/28 We will follow up with the results and discuss options with the patient and her son Biopsy results pending as of this AM ESRD on HD Receives HD on M, W, F Appreciate Nephrology's assistance with this Symptomatic Anemia Hgb noted to be 6.9 Patient with Heme-positive stool in the ER ASA, Plavix on Hold--We will continue these meds tomorrow if the patient remains hemodynamically stable The patient has received 2 Units of PRBC's and her Hgb is now stable at 9.5 GI aware of the case--no need for urgent scope during this admission especially in light of the patient's current work up We will continue to monitor the patient's Hgb Elevated Troponins likely 2/2 Demand Ischemia from Symptomatic Anemia EKG with no acute ST-T changes Peak Troponin of 0.20 Patient w/o any complaints of chest pain at this time 2D ECHO pending We will cont to monitor the patient on Telemetry Hypertension, stable Continue lisinopril, Coreg, isosorbide mononitrate Dyslipidemia Continue statin Diabetes mellitus Continue insulin sliding scale GERD Continue PPI Hypothyroidism Continue Synthroid Dementia Continue donepezil Depression Continue cervical History of breast cancer with left mastectomy DVT prophylaxis Heparin SC Dispo--At this time the patient and the family would like to remain DNR/DNI which is certainly reasonable given the patient's current clinical condition. However, if the patient's respiratory status were to worsen, the patient and the family would consider comfort measures only. However, the patient is resting comfortably today while requiring 4 L of oxygen via nasal cannula. We will follow up with the results of the biopsy, and explore options thereafter. VS, I&O, 24H, Fishbone Vital Signs/I&O Vital Signs Date Time Temp Pulse Resp B/P (MAP) Pulse Ox O2 Delivery O2 Flow Rate FiO2 11/29/16 10:32 Nasal Cannula 4.0 11/29/16 08:01 109/61 11/29/16 07:45 97.9 68 22 97 11/29/16 06:00 99 I&O- Last 24 Hours up to 6 AM 11/29/16 05:59 Intake Total 890 ml Output Total 0 ml Balance 890 ml Laboratory Data 24H LABS Laboratory Tests 2 11/28/16 11:55: Bedside Glucose (Misc Panel) 113H 11/28/16 15:23: Bedside Glucose (Misc Panel) 203H 11/28/16 16:58: Bedside Glucose (Misc Panel) 184H 11/28/16 21:25: Bedside Glucose (Misc Panel) 158H 11/29/16 05:01: Anion Gap 10, Glomerular Filtration Rate 7.7L, Blood Urea Nitrogen 51H, Creatinine 5.59H, Sodium Level 136, Potassium Level 4.9, Chloride Level 99, Carbon Dioxide Level 27, Calcium Level 8.9 11/29/16 06:55: Bedside Glucose (Misc Panel) 115H CBC/BMP Laboratory Tests 11/29/16 05:01 Calcium Level 8.9 11/29/16 05:11 Red Blood Count 3.07 L, Mean Corpuscular Volume 98.5 H, Mean Corpuscular Hemoglobin 31.0, Mean Corpuscular Hemoglobin Concent 31.5 L, Red Cell Distribution Width 19.1 H MISSY HARRIS MD Nov 29, 2016 11:19
[2016-11-29] MEDS ORDERED: HEPARIN 1,000 UNITS/ML 10ML VIAL (FOR RADIOLOGY& DIALYSIS ONLY) XX ONE (11:45)
[2016-11-29 12:30] VITALS: BP 117/64
--- NOTE | 2016-11-29 13:10 | IPN ---
DATE: 11/29/2016 SUBJECTIVE: Patient was seen and examined at the bedside today morning during hemodialysis procedure. Patient is tolerating the hemodialysis procedure well. Last 24 hours, no events were noted. Patient got a CT guided mediastinal biopsy done yesterday. Pathology report is still pending. REVIEW OF SYSTEMS: Patient denies any fevers, chills, rigors, headache, nausea, vomiting or chest pain. She does report shortness of breath. She denies any pain in abdomen or constipation. Patient does report that she was nauseated and she threw up twice yesterday but today she feels better. Rest of review of system is negative. OBJECTIVE: Vital signs: Temperature is 97.9 degrees Fahrenheit, blood pressure is 109/61, pulse is 68, respiratory rate of 18, saturating 97% on nasal cannula at 4 liters. Intake and output: Urine output is not recorded. Weight on the bed scale is 70.3 kg. PHYSICAL EXAMINATION: General: Patient is awake, alert, oriented times three lying in bed getting hemodialysis done. No apparent distress. Head and neck exam: Extraocular muscles intact. Pupils equally round and reactive to light. Patient has facial puffiness and periorbital edema. Neck is supple. She has mildly elevated jugular venous distention (JVD). Cardiovascular: S1, S2. Regular rate. No murmur, rub or gallop. Patient has left upper arm lymphedema and she has 1+ edema of the bilateral lower extremities. Respiratory: Patient has mild expiratory rhonchi at the bases. Patient has biopsy site medial to the right IJ tunneled catheter in the parasternal area and she was oozing from the biopsy site. A compression dressing was done by the nursing staff during dialysis. Abdomen: Abdomen is soft, obese, positive bowel sounds, nontender, no ascites, no organomegaly. Extremities: Patient has right transmetatarsal amputation. She has lymphedema of the left upper extremities because of history of left sided mastectomy. Central nervous system: No focal deficit. Power is 5/5 in bilateral upper and lower extremities. AV access: The patient has a right IJ tunneled hemodialysis catheter. LAB REVIEW: CBC showed WBC 8.6, hemoglobin 9.5 which is stable, platelets are 198. BMP showed sodium 136, potassium 4.9, chloride 99, bicarbonate 27, BUN 51, creatinine 5.5. Calcium 8.9. Pathology: Mediastinal mass biopsy result is pending. CURRENT INPATIENT MEDICATIONS: Patient's medications were all reviewed by me. She has been started on Xanax 0.25 mg by mouth every 6 hours as needed anxiety. There is no other change in the medications today as compared with yesterday. ASSESSMENT: 81-year-old female with past medical history of end stage renal disease on hemodialysis every Sunday, Sunday, Sunday, history of right sided mastectomy in the past, chronic left upper arm lymphedema, admitted this time because of symptomatic anemia, worsening shortness of breath. Patient was found to have a large mediastinal mass on CT scan. She got a mediastinal mass biopsy done yesterday. Pathology report is pending. PLAN: 1. Shortness of breath. It is most likely secondary to large mediastinal mass. The biopsy was done and report is pending. As soon as we have the biopsy result, will get hematology/oncology on board as well. We appreciate pulmonary recommendations as well. 2. End stage renal disease on hemodialysis. Patient is being dialyzed today as per her regular schedule. We shall try to do an ultrafiltration of 1.5 liter as tolerated by her blood pressure. 3. Symptomatic anemia. As reported by [facility], patient had hemoccult positive stools but over here, patient was constipated. She has been started on renal diet now. She continues to be on IV Protonix. I would change the dose to 40 mg daily. No signs of active GI bleeding. Hemoglobin is stable at this time. 4. Hypertension. Blood pressure is acceptable at this time. Continue current dose of lisinopril 5 mg daily, isosorbide 30 mg, metoprolol 25 mg by mouth daily with holding parameters.
[2016-11-29] MEDS: HEPARIN SOD (PORCINE) 5000 UNITS/ML VIAL SQ SCH ×2 (14:38→21:42)
[2016-11-29 16:00] VITALS: BP 132/58
[2016-11-29] MEDS ORDERED: ALPRAZolam 0.25 MG TAB PO PRN (18:00)
[2016-11-29 20:30] VITALS: BP 101/57
[2016-11-29] MEDS: PRAVASTATIN 10 MG TAB PO SCH (21:41)
[2016-11-29] MEDS: QUEtiapine FUMARATE 25 MG TAB PO SCH (21:42)
[2016-11-29 23:59] VITALS: BP 108/69
[2016-11-30 04:45] VITALS: BP 112/78
[2016-11-30 05:25] LABS: MEAN CORPUSCULAR HEMOGLOBIN 31.5 pg (27.0-33.0); MEAN CORPUSCULAR HGB CONC 32.2 g/dl (32.0-36.5); MEAN CORPUSCULAR VOLUME 97.7 fl (80.0-96.0); RED CELL DISTRIBUTION WIDTH 18.8 % (11.5-14.5); WHITE BLOOD COUNT 8.4 K/mm3 (4.0-10.0)
[2016-11-30] MEDS: ALPRAZolam 0.25 MG TAB PO PRN (05:35)
[2016-11-30] MEDS: LEVOTHYROXINE 25MCG TABLET (0.025MG) PO SCH (05:35)
[2016-11-30] MEDS: HEPARIN SOD (PORCINE) 5000 UNITS/ML VIAL SQ SCH ×3 (05:36→22:07)
[2016-11-30 05:53] LABS: CALCIUM LEVEL 9.5 MG/DL (8.8-10.2); CREATININE FOR GFR 4.36 MG/DL (0.55-1.02); GLOMERULAR FILTRATION RATE 10.3 (>32); POTASSIUM SERUM 3.9 MEQ/L (3.5-5.1)
--- NOTE | 2016-11-30 06:42 | ECHO ---
DATE OF PROCEDURE: 11/29/2016 REFERRING PHYSICIAN: Dr. Ligia Mena. INDICATION: Dyspnea. HEIGHT: 157 cm. WEIGHT: 70 kg. MEASUREMENTS: Aortic root: 2.6 cm Left atrium: 4.6 cm Ventricular septum: 1.54 cm Posterior wall: 1.53 cm Left ventricle diastole: 4.0 cm LVOT: 1.7 cm Right ventricle: 3.4 cm Inferior vena cava: 2.6 cm DOPPLER MEASUREMENTS: Aortic valve velocity: 205 cm/s LVOT velocity: 72.9 cm/s LVOT VTI: 15.9 cm Severe mitral regurgitation. No mitral stenosis. Mitral E velocity: 131 cm/s Mitral A velocity: 69.1 cm/s Mitral deacceleration time: 109 ms Severe tricuspid regurgitation. Estimated right ventricular systolic pressure 78 mmHg assuming an atrial pressure of 20 mmHg based on a dilated inferior vena cava. Trace pulmonic regurgitation. MITRAL ANNULAR TISSUE DOPPLER: E-prime septal: 6.2 cm/s E-prime lateral: 9.0 cm/s DESCRIPTION: Rhythm was sinus with infrequent PVCs. No pericardial effusion. This was a moderately technically difficult echocardiogram. CONCLUSIONS: 1. Moderate concentric left ventricular hypertrophy. Normal regional wall motion and wall thickening. Normal LV systolic function. LVEF 65% by visual estimate. Unable to assess LV diastolic function in the setting of severe mitral regurgtitation. 2. Moderate left atrial dilatation. 3. Moderate mitral annular calcification. Severe mitral regurgitation. No mitral stenosis. 4. Moderate aortic valve sclerosis of a 3-cusp aortic valve. No aortic stenosis or regurgitation. 5. Suggestive of severe elevation of estimated right ventricle systolic pressure (78 mmHg). Inferior vena cava plethora suggestive of elevated central venous pressure of at least 20 mmHg. Normal right ventricle size and systolic function. Severe tricuspid regurgitation.
[2016-11-30 07:30] VITALS: BP 116/64
[2016-11-30] MEDS: HumaLOG INSULIN (NovoLOG) PER UNIT SC SCH ×4 (07:30→21:00)
[2016-11-30] MEDS: METOPROLOL TART 25 MG TABLET PO SCH ×2 (08:23→22:06)
[2016-11-30] MEDS: (RENVELA) SEVELAMER **CARBONate** 800 MG TAB PO SCH ×3 (08:23→17:53)
[2016-11-30] MEDS: DONEPEZIL 5 MG TAB PO SCH (08:23)
[2016-11-30] MEDS: PANTOPRAZOLE 40MG INJ (PROTONIX) (C9113) IV SCH (08:24)
[2016-11-30] MEDS: ISOSORBIDE MON. (IMDUR) 30 MG XR TAB PO SCH (08:24)
[2016-11-30] MEDS: LISINOPRIL 5 MG TAB PO SCH (09:00)
[2016-11-30] MEDS: ASPIRIN 81 MG ENTERIC TAB PO SCH ×2 (09:00→11:26)
[2016-11-30 12:00] VITALS: BP 120/68
--- NOTE | 2016-11-30 15:40 | IPNPDOC ---
Subjective Date Seen The patient was seen on 11/30/16. Subjective Chief Complaint/HPI The patient is a 81-year-old female admitted with a reason for visit of Fluid Overload And Symptomatic Anemia. General: Denies: Chills, Night Sweats Constitutional: Denies: Chills, Fever Eyes: Denies: Pain, Vision change ENT: Denies: Head Aches, Ear Pain Skin: Denies: Rash, Lesions Pulmonary: Reports: Dyspnea Cardiovascular: Denies: Chest Pain, Palpitations Gastrointestinal: Denies: Nausea, Vomiting Genitourinary: Denies: Dysuria, Frequency Hematologic: Denies: Bruising, Bleeding Excessively Objective Physical Examination General Exam: Positive: Alert, Cooperative, No Acute Distress ENT Exam: Positive: Atraumatic, Mucous membr. 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 CT Chest noted, large Mediastinal Mass 7.5 x 7.5 cm concerning for possible malignancy Pulmonary consult appreciated--s/p Biopsy on 11/28 We will follow up with the results and discuss options with the patient and her son Biopsy results notable for Small Cell Ca Oncology consulted for further discussion of treatment options including radiation/chemotherapy ESRD on HD Receives HD on , W, F Appreciate Nephrology's assistance with this Symptomatic Anemia Hgb noted to be 6.9 on admission Patient with Heme-positive stool in the ER ASA, Plavix on Hold--We will continue these meds tomorrow if the patient remains hemodynamically stable The patient has received 2 Units of PRBC's and her Hgb is now stable at 9.5 GI aware of the case--no need for urgent scope during this admission especially in light of the patient's current work up We will continue to monitor the patient's Hgb Elevated Troponins likely 2/2 Demand Ischemia from Symptomatic Anemia EKG with no acute ST-T changes Peak Troponin of 0.20 Patient w/o any complaints of chest pain at this time 2D ECHO notable for preserved EF, severe MR, elevated Right Ventricle Pressure ( likely 2/2 mediastinal mass) We will cont to monitor the patient on Telemetry Hypertension, stable Continue lisinopril, Coreg, isosorbide mononitrate Dyslipidemia Continue statin Diabetes mellitus Continue insulin sliding scale GERD Continue PPI Hypothyroidism Continue Synthroid Dementia Continue donepezil Depression Continue cervical History of breast cancer with left mastectomy DVT prophylaxis Heparin SC Dispo--I have discussed the biopsy findings with the patient's daughter at the bedside, and she has requested that her whole family be present for breaking the news to her mother tomorrow. Dr. Wong of Oncology consulted and will see the patient in consult in the AM as well. We will delineate further options from there. VS, I&O, 24H, Fishbone Vital Signs/I&O Vital Signs Date Time Temp Pulse Resp B/P (MAP) Pulse Ox O2 Delivery O2 Flow Rate FiO2 11/30/16 12:00 98.0 76 20 120/68 (85) 100 Nasal Cannula 3.0 11/29/16 06:00 99 I&O- Last 24 Hours up to 6 AM 11/30/16 06:00 Intake Total 660 ml Output Total 1000 ml Balance -340 ml Laboratory Data 24H LABS Laboratory Tests 2 11/29/16 17:05: Bedside Glucose (Misc Panel) 142H 11/29/16 20:56: Bedside Glucose (Misc Panel) 86 11/30/16 04:59: Anion Gap 9, Glomerular Filtration Rate 10.3L, Blood Urea Nitrogen 31H, Creatinine 4.36H, Sodium Level 138, Potassium Level 3.9#, Chloride Level 100, Carbon Dioxide Level 29, Calcium Level 9.5 11/30/16 11:04: Bedside Glucose (Misc Panel) 125H CBC/BMP Laboratory Tests 11/30/16 04:59 Red Blood Count 3.01 L, Mean Corpuscular Volume 97.7 H, Mean Corpuscular Hemoglobin 31.5, Mean Corpuscular Hemoglobin Concent 32.2, Red Cell Distribution Width 18.8 H, Calcium Level 9.5 MISSY HARRIS MD Nov 30, 2016 15:40
[2016-11-30 16:00] VITALS: BP 119/80
--- NOTE | 2016-11-30 18:55 | IPN ---
DATE: 11/30/2016 SUBJECTIVE: Patient was seen and examined at the bedside today morning. Last 24-hour events were noted. Patient tolerated the hemodialysis procedure well yesterday. 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 REVIEW OF SYSTEMS: Patient denies any fevers, chills, rigors, headache, nausea, vomiting, or chest pain. She reports persistent shortness of breath and cough. She denies any pain in abdomen, constipation, or diarrhea. Rest of review of systems is negative. OBJECTIVE: Vital signs: Temperature is 98.1 degrees Fahrenheit, blood pressure is 116/64, pulse is 82, respiratory rate of 24, saturating 96% on nasal cannula at 3 liters. Intake and output: Urine output is not recorded. Ultrafiltration with hemodialysis was 1 liter yesterday. Weight in the bed scale is 70.2 kg. PHYSICAL EXAMINATION: GENERAL: Patient is awake, alert, oriented times three, in mild respiratory distress, sitting in the bed, having intermittent cough. HEAD AND NECK: Extraocular muscles intact. Pupils equally round and reactive to light. Patient has facial puffiness. Neck is supple. She has moderate elevated jugular venous distention (JVD). CARDIOVASCULAR: S1, S2, regular rate. No murmur, rub, or gallop. Patient has left upper arm lymphedema, and she has 1+ edema on the bilateral lower extremities. RESPIRATORY: Patient has mild expiratory rhonchi at the bases. ABDOMEN: Abdomen is soft, obese. Positive bowel sounds. Nontender. No ascites. No organomegaly. EXTREMITIES: Patient has right transmetatarsal amputation. She has lymphedema on the left upper extremities, and she has trace edema of the bilateral lower extremities. CENTRAL NERVOUS SYSTEM: No focal neurological deficit. Power is 5/5 in all extremities. AV ACCESS: Patient has a right internal jugular (IJ) tunneled hemodialysis catheter. LABORATORY REVIEW: CBC showed a WBC of 8.4, hemoglobin 9.5, platelets are 176. BMP showed sodium 138, potassium 3.9, chloride 100, bicarbonate 29, BUN 31, creatinine is 4.3, calcium 9.5. CURRENT INPATIENT MEDICATIONS: Patient's medications were all reviewed by me. She has been started on aspirin 81 mg by mouth daily. There is no other change in the medications today. ASSESSMENT: An 81-year-old female with past medical history of end-stage renal disease, on hemodialysis every Sunday, Sunday, Sunday, history of left-sided mastectomy in the past, chronic left upper arm lymphedema, admitted at this time because of symptomatic anemia and worsening shortness of breath. Further workup showed a mediastinal mass on the CT scan. 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 PLAN: 1. 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 Patient is pending evaluation by hematology/oncology for possible chemotherapy and radiation therapy. I have informed the patient about the biopsy results today morning. 2. End-stage renal disease, on hemodialysis. Patient was dialyzed according to her schedule yesterday. Next hemodialysis session will be tomorrow, as per her regular schedule. 3. Anemia and end-stage renal disease. Patient's hemoglobin is 9.5. She got 2 units of packed red blood cells (PRBC) transfusion on admission. She has also been started on Aranesp 300 mcg intravenous (IV) with hemodialysis. Will continue current dose. No signs of active gastrointestinal (GI) bleeding at this time. 4. Hypertension. Blood pressure is acceptable at this time. Continue current dose of lisinopril 5 mg daily, isosorbide 30 mg, metoprolol 25 mg with holding parameters. The plan of care was discussed with the hospitalist, Dr. Maxwell Nguyen and with the pulmonary service, Dr. Colby.
[2016-11-30 20:00] VITALS: BP 135/73
[2016-11-30] MEDS: QUEtiapine FUMARATE 25 MG TAB PO SCH (22:06)
[2016-11-30] MEDS: PRAVASTATIN 10 MG TAB PO SCH (22:06)
[2016-11-30 23:59] VITALS: BP 117/82
[2016-12-01 04:00] VITALS: BP 134/69
[2016-12-01 05:46] LABS: MEAN CORPUSCULAR HGB CONC 32.4 g/dl (32.0-36.5); MEAN CORPUSCULAR VOLUME 98.7 fl (80.0-96.0); RED CELL DISTRIBUTION WIDTH 18.8 % (11.5-14.5); WHITE BLOOD COUNT 7.1 K/mm3 (4.0-10.0)
[2016-12-01] MEDS: LISINOPRIL 5 MG TAB PO SCH (06:37)
[2016-12-01] MEDS: DONEPEZIL 5 MG TAB PO SCH (06:37)
[2016-12-01] MEDS: (RENVELA) SEVELAMER **CARBONate** 800 MG TAB PO SCH ×3 (06:38→17:44)
[2016-12-01] MEDS: ASPIRIN 81 MG ENTERIC TAB PO SCH (06:38)
[2016-12-01] MEDS: HEPARIN SOD (PORCINE) 5000 UNITS/ML VIAL SQ SCH ×3 (06:38→20:38)
[2016-12-01] MEDS: LEVOTHYROXINE 25MCG TABLET (0.025MG) PO SCH (06:38)
[2016-12-01] MEDS: ALPRAZolam 0.25 MG TAB PO PRN ×2 (06:38→15:45)
[2016-12-01 06:40] LABS: CALCIUM LEVEL 9.6 MG/DL (8.8-10.2); CREATININE FOR GFR 5.63 MG/DL (0.55-1.02); GLOMERULAR FILTRATION RATE 7.7 (>32); POTASSIUM SERUM 4.9 MEQ/L (3.5-5.1)
[2016-12-01] MEDS: METOPROLOL TART 25 MG TABLET PO SCH ×2 (07:07→20:37)
[2016-12-01 08:00] VITALS: BP 119/70
[2016-12-01] MEDS: HumaLOG INSULIN (NovoLOG) PER UNIT SC SCH ×4 (08:05→20:48)
[2016-12-01] MEDS: PANTOPRAZOLE 40MG TAB (PROTONIX) PO SCH (08:06)
[2016-12-01] MEDS: ISOSORBIDE MON. (IMDUR) 30 MG XR TAB PO SCH (08:06)
[2016-12-01] MEDS ORDERED: HEPARIN 1,000 UNITS/ML 10ML VIAL (FOR RADIOLOGY& DIALYSIS ONLY) XX ONE (10:45)
[2016-12-01 12:40] VITALS: BP 128/80
[2016-12-01] MEDS: CINACALCET 30 MG TAB (SENSIPAR) PO SCH (13:04)
--- NOTE | 2016-12-01 13:32 | CR ---
DATE OF CONSULTATION: 12/01/2016 REASON FOR CONSULTATION: New diagnosis of small cell lung carcinoma, TTF-1 and synaptophysin positive. HISTORY OF PRESENT ILLNESS: Barbra Goetz is an 81-year-old female with end stage kidney disease, dialysis dependent who was admitted for worsening shortness of breath and dyspnea on exertion. As part of her workup, a CT of the chest was obtained on 11/28/2016 and it revealed a large suprahilar mediastinal mass, 7.5 cm. Subsequent biopsy of the mass on the same day confirmed small cell carcinoma. Hematology/oncology was consulted regarding this new diagnosis. Clinically she tells me that her shortness of breath has improved. She is on oxygen. No chest pain or palpitations. No changes in her weight or her appetite. No abdominal pain. Family is at her bedside. PAST MEDICAL HISTORY: 1. Left invasive breast cancer in the 1970s status post mastectomy and adjuvant chemotherapy complicated by chronic left arm lymphedema. Currently no evidence of disease. 2. Diabetes. 3. Hypertension. 4. Hyperlipidemia. 5. 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 6. Anemia. 7. Secondary hyperparathyroidism. 8. Diverticulosis. 9. Dementia. 10. End stage kidney disease, dialysis dependent. 11. Prior history of cerebrovascular accident (CVA) with residual left lower extremity weakness. MEDICATIONS: Include aspirin, Plavix, Synthroid, metoprolol, vitamin D, Aricept , lisinopril, pravastatin, Pepcid, Imdur, Renvela, amlodipine, glipizide, Seroquel. ALLERGIES: 1. CEPHALEXIN. 2. CLONIDINE. 3. CODEINE. 4. MORPHINE. 5. OXYCODONE. 6. PENICILLIN. SOCIAL HISTORY: 30 pack year history of tobacco use. She quit over 20 years ago. No alcohol. Her family is at her bedside. She is retired. PHYSICAL EXAMINATION: Temperature is 98.3. Blood pressure 119/70. Heart rate 74. ECOG of 2. She is lying in bed with oxygen via nasal cannula at 3 liters per minute. HEENT: No pallor. Anicteric sclerae. Moist mucous membranes. Oropharynx is clear. HEART: Regular rate and rhythm. LUNGS: Crackles at the bases, otherwise no wheezing. ABDOMEN: Soft. No hepatosplenomegaly or masses. Nontender. Nondistended. EXTREMITIES: Left arm edema. She has a lymphedema sleeve on. LABS AND STUDIES: AST is 38, ALT 19, alkaline phosphatase of 90, BUN of 43, GFR of 7.7. CT scan as detailed above. IMPRESSION: 81-year-old female with multiple comorbidities with new diagnosis of small cell lung carcinoma, stage unknown. RECOMMENDATIONS: I discussed with the family at her bedside today regarding treatment plan. Given her performance status and significant comorbidities, I suspect that she would only be a candidate for palliative treatment; however, given that small cell lung carcinoma is also very responsive to chemotherapy, I would also recommend treating with chemotherapy as well, assuming she can tolerate it. Given her renal function, there is increased risk for increased residual side effects from chemotherapy. In any case, I would like to stage her fully by getting an MRI of the brain and CT of the abdomen and pelvis. Assuming she does have limited stage small cell carcinoma, her options for treatment would be concurrent chemoradiation. I would recommend that the patient be evaluated by Dr. Rodríguez as well after staging studies are complete. I also suspect that due to partial pulmonary collapse from the large mass, treatment could also improve her functional status as well and family is agreeable to this plan. The family knows that this is a complex case with a patient with multiple comorbidities, advanced age and poor functional status; and any treatment will be palliative. It is unclear if [facility] will have the capacity to administer chemotherapy as an inpatient. Would recommend transfer to a different facility for treatment, otherwise. Will also discuss with Dr. Rodríguez as well. [facility] HOSPITALSybil
--- NOTE | 2016-12-01 14:34 | IPNPDOC ---
Subjective Date Seen The patient was seen on 12/01/16. Subjective Chief Complaint/HPI Patient seen and examined at the bedside. States that she has been eating and drinking without any problems, and notes that her breathing has been comfortable. Offers no acute complaints at this time. Objective Physical Examination General Exam: Positive: Alert, Cooperative, No Acute Distress ENT Exam: Positive: Atraumatic, Mucous membr. 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 CT Chest noted, large Mediastinal Mass 7.5 x 7.5 cm concerning for possible malignancy Pulmonary consult appreciated--s/p Biopsy on 11/28 Biopsy results notable for Small Cell Ca Oncology--input appreciated, patient scheduled to begin chemotherapy at some point next week I have also spoken with Radiation-Oncologist, Dr. Brady who believes that the patient would benefit from chemotherapy predominantly and will consider concurrent radiation next week I had an extensive discussion with the family at the bedside this morning as well, and answered all questions to their satisfaction. ESRD on HD Receives HD on , , F Appreciate Nephrology's assistance with this Symptomatic Anemia Hgb noted to be 6.9 on admission Patient with Heme-positive stool in the ER The patient has received 2 Units of PRBC's and her Hgb is now stable at 9.5 GI aware of the case--no need for urgent scope during this admission especially in light of the patient's current work up We will continue to monitor the patient's Hgb Elevated Troponins likely 2/2 Demand Ischemia from Symptomatic Anemia EKG with no acute ST-T changes Peak Troponin of 0.20 Patient w/o any complaints of chest pain at this time 2D ECHO notable for preserved EF, severe MR, elevated Right Ventricle Pressure ( likely 2/2 mediastinal mass) We will cont to monitor the patient on Telemetry Hypertension, stable Continue lisinopril, Coreg, isosorbide mononitrate Dyslipidemia Continue statin Diabetes mellitus Continue insulin sliding scale GERD Continue PPI Hypothyroidism Continue Synthroid Dementia Continue donepezil Depression Continue cervical History of breast cancer with left mastectomy DVT prophylaxis Heparin SC Dispo--I discussed the patient's disposition with the patient and her family at the bedside. The patient's family states that they're unsure if they will be able to take their mother home in her current condition and the care that she will require. We will continue to monitor her progress here at this time, and continue to ascertain the most appropriate disposition for the patient moving forward with the assistance of PFS. VS, I&O, 24H, Fishbone Vital Signs/I&O Vital Signs Date Time Temp Pulse Resp B/P (MAP) Pulse Ox O2 Delivery O2 Flow Rate FiO2 12/01/16 12:45 Nasal Cannula 3.0 12/01/16 08:06 119/70 12/01/16 08:00 98.3 74 20 100 11/29/16 06:00 99 I&O- Last 24 Hours up to 6 AM 12/01/16 06:00 Intake Total 600 ml Output Total 0 ml Balance 600 ml Laboratory Data 24H LABS Laboratory Tests 2 11/30/16 17:32: Bedside Glucose (Misc Panel) 165H 11/30/16 21:08: Bedside Glucose (Misc Panel) 83 12/01/16 05:22: Anion Gap 10, Glomerular Filtration Rate 7.7L, Blood Urea Nitrogen 43H, Creatinine 5.63H, Sodium Level 139, Potassium Level 4.9#, Chloride Level 104, Carbon Dioxide Level 25, Calcium Level 9.6 12/01/16 12:48: Bedside Glucose (Misc Panel) 119H CBC/BMP Laboratory Tests 12/01/16 05:22 Red Blood Count 3.07 L, Mean Corpuscular Volume 98.7 H, Mean Corpuscular Hemoglobin 32.0, Mean Corpuscular Hemoglobin Concent 32.4, Red Cell Distribution Width 18.8 H, Calcium Level 9.6 MISSY HARRIS MD Dec 01, 2016 14:34
[2016-12-01] MEDS ORDERED: SLF 3 ML SYR IV PRN (15:30)
[2016-12-01 16:00] VITALS: BP 132/99
--- NOTE | 2016-12-01 16:45 | REP ---
Clinical: Lung cancer. Comparison: 07/03/2012. Findings: Lung bases demonstrate bibasilar atelectasis/consolidations and pleural effusions (right greater than left) along with chronic bronchiectasis. Liver, spleen, pancreas, bilateral adrenal glands are essentially normal for noncontrast evaluation. Extensive atherosclerotic changes to the aorta and vasculature including the intrahepatic hepatic arteries and splenic arteries noted along with calcified infrarenal abdominal aortic aneurysm which measures 5 cm maximal diameter and approximately 9 cm in craniocaudal length. The kidneys demonstrate chronic atrophic changes. The enteric system is without obstruction or acute inflammatory process colonic diverticulosis noted without acute diverticulitis. Pelvis demonstrates normal bladder and age-appropriate uterus/adnexa. Fat containing left inguinal hernia noted. No ascites. No free air. No obvious adenopathy. No obvious mass lesion. Musculoskeletal structures demonstrate age-related degenerative changes without focal osseous abnormality. Impression: 1. Bibasilar consolidations and pleural effusions (right greater than left) with chronic bronchiectasis and interstitial changes. 2. Extensive atherosclerotic changes to the aorta and vasculature as well as abdominal aortic aneurysm measuring 5 cm maximal diameter and 9 cm craniocaudal length. 3. Chronic atrophic changes to the kidneys, colonic diverticulosis, fat containing left inguinal hernia. 4. No obvious adenopathy, mass lesion, or ascites. Signed by David Ledesma MD 12/01/2016 04:37 P
[2016-12-01 20:00] VITALS: BP 158/67
[2016-12-01] MEDS: QUEtiapine FUMARATE 25 MG TAB PO SCH (20:37)
[2016-12-01] MEDS: PRAVASTATIN 10 MG TAB PO SCH (20:37)
[2016-12-01] MEDS: SLF 3 ML SYR IV SCH (20:38)
--- NOTE | 2016-12-01 21:46 | REP ---
Clinical: Small cell lung cancer for staging. Technique: Axial and coronal T1, T2, and TRUE FISP sequences without contrast. Findings: Examination is essentially nondiagnostic due to patient motion artifact. An abdominal aortic aneurysm is again noted along with atrophic appearance to the bilateral kidneys. No significant ascites. Impression: Nondiagnostic evaluation due to motion artifact. With regards to staging and metastatic workup for small cell lung cancer, there is no significant or clear indication that MRI may be warranted over contrast enhanced CT evaluation. Signed by David Ledesma MD 12/01/2016 09:37 P
[2016-12-01 23:59] VITALS: BP 142/65
[2016-12-02] VITALS (7 sets, daily range): BP systolic 92–188; BP diastolic 61–97
[2016-12-02] MEDS: ALPRAZolam 0.25 MG TAB PO PRN ×2 (01:12→12:21)
[2016-12-02 05:50] LABS: CALCIUM LEVEL 8.8 MG/DL (8.8-10.2); CREATININE FOR GFR 3.9 MG/DL (0.55-1.02); GLOMERULAR FILTRATION RATE 11.7 (>32); POTASSIUM SERUM 3.7 MEQ/L (3.5-5.1)
[2016-12-02] MEDS: HEPARIN SOD (PORCINE) 5000 UNITS/ML VIAL SQ SCH ×3 (05:54→21:22)
[2016-12-02] MEDS: LEVOTHYROXINE 25MCG TABLET (0.025MG) PO SCH (05:54)
[2016-12-02] MEDS: SLF 3 ML SYR IV SCH ×3 (05:54→21:22)
--- NOTE | 2016-12-02 07:25 | IPN ---
DATE OF SERVICE: 12/01/2016 SUBJECTIVE: Patient was seen and examined at the bedside today morning. During hemodialysis procedure she was tolerating the hemodialysis procedure well. Last 24-hour events were noted. Patient reports that she was seen by hematology and oncology and oncologist discussed her current diagnosis, treatment and prognosis with her and her family members as well. REVIEW OF SYSTEMS: Patient denies any fevers, chills, rigors, headache, nausea, vomiting, or chest pain. She does report shortness of breath. She denies any pain in abdomen, constipation, or diarrhea. Rest of review of systems is negative. OBJECTIVE: Vital signs: Temperature is 97.7 degrees Fahrenheit, blood pressure is 128/80, pulse is 69, respiratory rate of 18, saturating 100% on nasal cannula at 3 liters. Intake and output: Urine output is not recorded. Weight in the bed scale is 70.1 kg. PHYSICAL EXAMINATION: GENERAL: Patient is awake, alert, oriented times three, laying in bed getting hemodialysis done. Mild respiratory distress. HEAD AND NECK: Extraocular muscles intact. Pupils equally round and reactive to light. Patient has mild facial puffiness. Neck is supple. She has moderate elevated jugular venous distention (JVD) and engorged neck veins. CARDIOVASCULAR: S1, S2, regular rate. No murmur, rub, or gallop. Patient has left upper arm lymphedema which is covered with compression dressing at this time. RESPIRATORY: Patient has mild expiratory rhonchi at the bases. ABDOMEN: Abdomen is soft. Positive bowel sounds. Obese. Nontender. No ascites. No organomegaly. EXTREMITIES: Patient has right transmetatarsal amputation and trace edema of the bilateral lower extremities. CENTRAL NERVOUS SYSTEM: No focal neurological deficit. Power is 5/5 in all extremities. AV ACCESS: Patient has a right internal jugular (IJ) tunneled hemodialysis catheter. LABORATORY REVIEW: CBC showed a WBC of 7.1, hemoglobin 9.8, platelets are 179. BMP showed a sodium of 139, potassium 4.9, chloride 104, bicarbonate 25, BUN 43, creatinine is 5.6, calcium 9.6. IMAGING: A CAT scan of the abdomen and pelvis was done today which showed no obvious adenopathy, mass lesion, or ascites and a MRI of the abdomen was also done which showed motion artifacts. There was no significant or clear indication that MRI may be warranted over contrast enhanced CAT scan evaluation. CURRENT INPATIENT MEDICATIONS: Patient's medications were all reviewed by me. There is no change in the medications today as compared with yesterday. ASSESSMENT: 81-year-old female with past medical history of end-stage renal disease, on hemodialysis given Sunday, Sunday, Sunday, history of left-sided mastectomy in the past, admitted at this time because of symptomatic anemia and worsening shortness of breath. Patient was found out to have large mediastinal mass. 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 PLAN: 1. Small-cell cancer of the lung. Patient was seen by Dr. Wong, I appreciate the recommendations. Patient is getting CAT scans and MRIs for staging and the recommendations are to give chemotherapy. The rest of the management is as per oncology recommendations. 2. End-stage renal disease, on hemodialysis. Patient is being dialyzed according to her schedule yesterday. Next hemodialysis session will be on Sunday, December 04, 2016. 3. Anemia and end-stage renal disease. Patient's hemoglobin has been stable at around 9.8. Continue current dose of Aranesp. No need for blood transfusion at this time. 4. Hypertension. Blood pressure is acceptable at this time. Continue current regimen.
[2016-12-02] MEDS: IPRATROPIUM 0.5MG/ALBUTEROL 2.5MG INH SOL UD 3ML (DUONEB)(J7620) NEB SCH ×4 (08:00→19:53)
[2016-12-02] MEDS: HumaLOG INSULIN (NovoLOG) PER UNIT SC SCH ×4 (08:23→21:44)
[2016-12-02] MEDS: DONEPEZIL 5 MG TAB PO SCH (08:24)
[2016-12-02] MEDS: ASPIRIN 81 MG ENTERIC TAB PO SCH (08:24)
[2016-12-02] MEDS: PANTOPRAZOLE 40MG TAB (PROTONIX) PO SCH (08:24)
[2016-12-02] MEDS: (RENVELA) SEVELAMER **CARBONate** 800 MG TAB PO SCH ×3 (08:25→17:37)
[2016-12-02] MEDS: LISINOPRIL 5 MG TAB PO SCH (08:25)
[2016-12-02] MEDS: ISOSORBIDE MON. (IMDUR) 30 MG XR TAB PO SCH (08:25)
[2016-12-02] MEDS: METOPROLOL TART 25 MG TABLET PO SCH ×2 (08:25→19:42)
--- NOTE | 2016-12-02 11:15 | IPNPDOC ---
Subjective Date Seen The patient was seen on 12/02/16. Subjective Chief Complaint/HPI Patient seen and examined at the bedside, reports no overnight events, and offers no acute complaints at this time. Objective Physical Examination General Exam: Positive: Alert, Cooperative, No Acute Distress ENT Exam: Positive: Atraumatic, Mucous membr. moist/pink Chest Exam: Positive: Rales (faint bibasilar rales), Diminished, Negative: Wheezing Heart Exam: Positive: Rate Normal, Normal S1, Normal S2 Abdomen Exam: Positive: Soft, Negative: Tenderness Extremity Exam: Positive: Other (LUE swelling, chronic lymphedema), Negative: Tenderness Assessment /Plan Plan/VTE VTE Prophylaxis Ordered?: Yes Plan Right Suprahilar Mass positive for Small Cell Ca CT Chest noted, large Mediastinal Mass 7.5 x 7.5 cm concerning for possible malignancy Pulmonary consult appreciated--s/p Biopsy on 11/28 Biopsy results notable for Small Cell Ca Oncology--input appreciated, patient scheduled to begin chemotherapy at some point next week I have also spoken with Radiation-Oncologist, Dr. Brady who believes that the patient would benefit from chemotherapy predominantly and will consider concurrent radiation next week I had an extensive discussion with the family at the bedside this morning as well, and answered all questions to their satisfaction. ESRD on HD Receives HD on , W, F Appreciate Nephrology's assistance with this Symptomatic Anemia Hgb noted to be 6.9 on admission Patient with Heme-positive stool in the ER The patient has received 2 Units of PRBC's and her Hgb is now stable GI aware of the case--no need for urgent scope during this admission especially in light of the patient's current work up We will continue to monitor the patient's Hgb Elevated Troponins likely 2/2 Demand Ischemia from Symptomatic Anemia EKG with no acute ST-T changes Peak Troponin of 0.20 Patient w/o any complaints of chest pain at this time 2D ECHO notable for preserved EF, severe MR, elevated Right Ventricle Pressure ( likely 2/2 mediastinal mass) We will cont to monitor the patient on Telemetry Hypertension, stable Continue lisinopril, Coreg, isosorbide mononitrate Dyslipidemia Continue statin Diabetes mellitus Continue insulin sliding scale GERD Continue PPI Hypothyroidism Continue Synthroid Dementia Continue donepezil Depression Continue cervical History of breast cancer with left mastectomy DVT prophylaxis Heparin SC Dispo--I discussed the patient's disposition with the patient and her family at the bedside. The patient's family states that they're unsure if they will be able to take their mother home in her current condition and the care that she will require. PT consulted. We will continue to monitor her progress here at this time, and continue to ascertain the most appropriate disposition for the patient moving forward with the assistance of PFS. VS, I&O, 24H, Fishbone Vital Signs/I&O Vital Signs Date Time Temp Pulse Resp B/P (MAP) Pulse Ox O2 Delivery O2 Flow Rate FiO2 12/02/16 08:25 77 136/80 12/02/16 08:00 98.3 22 93 Nasal Cannula 3.0 11/29/16 06:00 99 I&O- Last 24 Hours up to 6 AM 12/02/16 06:00 Intake Total 340 ml Output Total 1000 ml Balance -660 ml Laboratory Data 24H LABS Laboratory Tests 2 12/01/16 12:48: Bedside Glucose (Misc Panel) 119H 12/01/16 17:21: Bedside Glucose (Misc Panel) 102 12/01/16 20:28: Bedside Glucose (Misc Panel) 150H 12/02/16 04:30: Anion Gap 8, Glomerular Filtration Rate 11.7L, Blood Urea Nitrogen 24H, Creatinine 3.90H, Sodium Level 137, Potassium Level 3.7#, Chloride Level 101, Carbon Dioxide Level 28, Calcium Level 8.8 CBC/BMP Laboratory Tests 12/02/16 04:30 Calcium Level 8.8 MISSY HARRIS MD Dec 02, 2016 11:14
--- NOTE | 2016-12-02 18:39 | REP ---
Clinical: History of small cell lung cancer. Comparison: 01/24/2010 Technique: Standard noncontrast MRI of the brain sequencing. Findings: Evaluation is limited by motion artifact. The ventricles, sulci, and cisterns are symmetric and demonstrate atrophic change. Periventricular and scattered parenchymal matter high signal intensity foci on T2 and FLAIR weighted sequences are compatible with age-related microvascular ischemic changes. There is no evidence for acute intracranial hemorrhage, infarction, mass or mass effect. No extra-axial collection identified. Diffusion and ADC mapping sequences are without evidence for acute infarction. Midbrain and midline structures are intact. Mucoperiosteal changes to the maxillary sinuses and fluid levels consistent with sinusitis. Impression: 1. Atrophy and microvascular ischemic changes progressive since prior examination of 2009. 2. No acute intracranial hemorrhage or mass/mass effect identified. 3. Sinusitis Signed by David Ledesma MD 12/02/2016 06:30 P
[2016-12-02] MEDS: QUEtiapine FUMARATE 25 MG TAB PO SCH (21:22)
[2016-12-02] MEDS: PRAVASTATIN 10 MG TAB PO SCH (21:22)
[2016-12-02] MEDS ORDERED: cloNIDine 0.2 MG TAB PO ONE (21:45)
[2016-12-03] MEDS: IPRATROPIUM 0.5MG/ALBUTEROL 2.5MG INH SOL UD 3ML (DUONEB)(J7620) NEB SCH ×4 (02:00→19:32)
[2016-12-03 04:00] VITALS: BP 124/69
[2016-12-03] MEDS: SLF 3 ML SYR IV SCH ×3 (05:32→21:37)
[2016-12-03] MEDS: LEVOTHYROXINE 25MCG TABLET (0.025MG) PO SCH (05:32)
[2016-12-03] MEDS: HEPARIN SOD (PORCINE) 5000 UNITS/ML VIAL SQ SCH ×3 (05:32→21:37)
[2016-12-03 06:17] LABS: CALCIUM LEVEL 9.1 MG/DL (8.8-10.2); CREATININE FOR GFR 5.09 MG/DL (0.55-1.02); GLOMERULAR FILTRATION RATE 8.6 (>32); POTASSIUM SERUM 4.1 MEQ/L (3.5-5.1)
--- NOTE | 2016-12-03 07:35 | IPN ---
DATE: 12/02/2016 Mrs. Goetz is seen this morning on her bedside. She is sitting in the chair using her nebulizer treatment at the time of my visit. She remains short of breath but denies any fever or chills. She denies any nausea, vomiting or diarrhea. She underwent hemodialysis yesterday. She has been diagnosed with small-cell lung cancer with significant mediastinal lymphadenopathy. Chemotherapy is currently being discussed. PHYSICAL EXAMINATION: Temperature 98.3 degrees Fahrenheit, heart rate 77 per minute and respiratory rate 22 per minute. Blood pressure 136/80 mmHg and oxygen saturation 93% on 3 liters oxygen. Head is atraumatic. Neck is supple and jugular venous distention (JVD) is difficult to be assessed. Dialysis catheter is intact on her upper chest. Lungs: Sound clear to auscultation. Heart: Sounds are distant and regular. Abdomen: Soft and nontender and without palpable organomegaly. Extremities: Have no cyanosis or clubbing. Her left arm has significant lymphatic edema and is wrapped in Ruperto bandage. Today's labs show WBC count 7.1, hemoglobin 9.8 and hematocrit 30.3, platelets 169. Sodium 137 and potassium 3.7. BUN 24 and creatinine 3.90. Glucose 129 and calcium 8.8. PROBLEM #1: End-stage renal disease. The patient underwent hemodialysis yesterday. Her next dialysis will be scheduled for Sunday. At present, there is no indication for emergent dialysis today. Her volume status is well-compensated and electrolytes are within normal range. 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 PROBLEM #2: Small-cell lung cancer. Chemotherapy is being discussed by oncology. At this point, from a renal standpoint, there is no contraindication for starting chemo. PROBLEM #3: Anemia. Her anemia is stable and does not need any intervention at this point. MTDD
[2016-12-03] MEDS: HumaLOG INSULIN (NovoLOG) PER UNIT SC SCH ×4 (07:51→21:00)
[2016-12-03 08:00] VITALS: BP 139/66
[2016-12-03] MEDS: METOPROLOL TART 25 MG TABLET PO SCH ×2 (09:14→21:36)
[2016-12-03] MEDS: ASPIRIN 81 MG ENTERIC TAB PO SCH (09:14)
[2016-12-03] MEDS: (RENVELA) SEVELAMER **CARBONate** 800 MG TAB PO SCH ×3 (09:14→17:22)
[2016-12-03] MEDS: ISOSORBIDE MON. (IMDUR) 30 MG XR TAB PO SCH (09:14)
[2016-12-03] MEDS: DONEPEZIL 5 MG TAB PO SCH (09:14)
[2016-12-03] MEDS: LISINOPRIL 5 MG TAB PO SCH (09:14)
[2016-12-03] MEDS: PANTOPRAZOLE 40MG TAB (PROTONIX) PO SCH (09:15)
--- NOTE | 2016-12-03 11:04 | IPNPDOC ---
Subjective Date Seen The patient was seen on 12/03/16. Subjective Chief Complaint/HPI Patient seen and examined at bedside, no acute overnight events noted. Patient offers no acute complaints at this time. Objective Physical Examination General Exam: Positive: Alert, Cooperative, No Acute Distress ENT Exam: Positive: Atraumatic, Mucous membr. 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 CT Chest noted, large Mediastinal Mass 7.5 x 7.5 cm concerning for possible malignancy Pulmonary consult appreciated--s/p Biopsy on 11/28 Biopsy results notable for Small Cell Ca Oncology--input appreciated, patient scheduled to begin chemotherapy at some point next week MRI Brain and CT Abd/Pel with no evidence of metastasis I have also spoken with Radiation-Oncologist, Dr. Brady who believes that the patient would benefit from chemotherapy predominantly and will consider concurrent radiation next week The patient's son Anastacio Goetz was updated this AM of the patient's current condition. ESRD on HD Receives HD on , W, F Appreciate Nephrology's assistance with this Symptomatic Anemia Hgb noted to be 6.9 on admission Patient with Heme-positive stool in the ER The patient has received 2 Units of PRBC's and her Hgb is now stable GI aware of the case--no need for urgent scope during this admission especially in light of the patient's current work up We will continue to monitor the patient's Hgb Elevated Troponins likely 2/2 Demand Ischemia from Symptomatic Anemia EKG with no acute ST-T changes Peak Troponin of 0.20 Patient w/o any complaints of chest pain at this time 2D ECHO notable for preserved EF, severe MR, elevated Right Ventricle Pressure ( likely 2/2 mediastinal mass) We will cont to monitor the patient on Telemetry Hypertension, stable Continue lisinopril, Coreg, isosorbide mononitrate Dyslipidemia Continue statin Diabetes mellitus Continue insulin sliding scale GERD Continue PPI Hypothyroidism Continue Synthroid Dementia Continue donepezil Depression Continue cervical History of breast cancer with left mastectomy DVT prophylaxis Heparin SC Dispo--We will continue to monitor her progress here at this time, and continue to ascertain the most appropriate disposition for the patient moving forward with the assistance of PFS. VS, I&O, 24H, Fishbone Vital Signs/I&O Vital Signs Date Time Temp Pulse Resp B/P (MAP) Pulse Ox O2 Delivery O2 Flow Rate FiO2 12/03/16 09:14 76 139/66 12/03/16 08:00 98.2 22 99 Nasal Cannula 3.0 11/29/16 06:00 99 I&O- Last 24 Hours up to 6 AM 12/03/16 05:59 Intake Total 460 ml Output Total 0 ml Balance 460 ml Laboratory Data 24H LABS Laboratory Tests 2 12/02/16 11:32: Bedside Glucose (Misc Panel) 169H 12/02/16 16:58: Bedside Glucose (Misc Panel) 116H 12/02/16 20:14: Bedside Glucose (Misc Panel) 173H 12/03/16 04:55: Anion Gap 10, Glomerular Filtration Rate 8.6L, Blood Urea Nitrogen 35H, Creatinine 5.09H, Sodium Level 137, Potassium Level 4.1, Chloride Level 101, Carbon Dioxide Level 26, Calcium Level 9.1 CBC/BMP Laboratory Tests 12/03/16 04:55 Calcium Level 9.1 MISSY HARRIS MD Dec 03, 2016 11:04
[2016-12-03 12:00] VITALS: BP 128/74
[2016-12-03] MEDS: amLODIPine 5 MG TAB PO SCH (12:36)
[2016-12-03 14:15] VITALS: BP 140/90
--- NOTE | 2016-12-03 15:34 | IPN ---
DATE: 12/03/2016 SUBJECTIVE: Mrs. Goetz is seen this morning on her bedside. She is sitting in the chair at the time of my visit. She is feeling better today. She denies any dyspnea, chest pain, nausea or vomiting. PHYSICAL EXAMINATION: VITAL SIGNS: Temperature 98.2 degrees Fahrenheit, heart rate 76 per minute and respiratory rate 22 per minute. Blood pressure 139/66 mmHg and oxygen saturation 99% on three liters oxygen. HEAD/NECK: Head is atraumatic. Neck is supple and without jugular venous distention (JVD) or thyroid enlargement. Dialysis catheter is intact on upper chest without any signs of infection. Oral mucosa is moist and healthy. CARDIORESPIRATORY: Heart sounds are regular and lungs clear to auscultation. ABDOMEN: Soft and nontender. EXTREMITIES: Have no cyanosis or clubbing. Left arm is markedly edematous and wrapped in Ruperto bandage. She has a left mastectomy previously. There is no edema on lower extremities. NEUROLOGIC: She is awake, alert and oriented times three . LABORATORY DATA: She did not have any CBC day. Her chemistry showed BUN of 35 and creatinine 5.09. Electrolytes are all within normal range. PROBLEMS: 1. End-stage renal disease. The patient is regularly dialyzed on Sunday, Sunday and Sunday schedule. She will be scheduled for next hemodialysis tomorrow. Volume status is well compensated. 2. Shortness of breath. This is chronic and most likely related to small-cell lung cancer with mediastinal lymphadenopathy. She is comfortable today. There is a plan for chemotherapy in near future. I will find further information from oncology tomorrow as to the plan for chemo. 3. Anemia. At present her anemia is stable and does not need any intervention. 4. Hypertension. Blood pressure seems to be well controlled on current antihypertensive medications.
[2016-12-03 18:00] VITALS: BP 142/81
[2016-12-03] MEDS: PRAVASTATIN 10 MG TAB PO SCH (21:37)
[2016-12-03] MEDS: QUEtiapine FUMARATE 25 MG TAB PO SCH (21:37)
[2016-12-03 22:00] VITALS: BP 142/63
[2016-12-04] MEDS: IPRATROPIUM 0.5MG/ALBUTEROL 2.5MG INH SOL UD 3ML (DUONEB)(J7620) NEB SCH ×4 (01:07→19:36)
[2016-12-04 02:00] VITALS: BP 109/67
[2016-12-04 06:00] VITALS: BP 107/62
[2016-12-04 06:31] LABS: CALCIUM LEVEL 9.6 MG/DL (8.8-10.2); CREATININE FOR GFR 6.11 MG/DL (0.55-1.02); POTASSIUM SERUM 4.2 MEQ/L (3.5-5.1)
[2016-12-04] MEDS: DONEPEZIL 5 MG TAB PO SCH (06:39)
[2016-12-04] MEDS: CINACALCET 30 MG TAB (SENSIPAR) PO SCH (06:39)
[2016-12-04] MEDS: ISOSORBIDE MON. (IMDUR) 30 MG XR TAB PO SCH (06:40)
[2016-12-04] MEDS: LEVOTHYROXINE 25MCG TABLET (0.025MG) PO SCH (06:40)
[2016-12-04] MEDS: METOPROLOL TART 25 MG TABLET PO SCH ×2 (06:40→20:44)
[2016-12-04] MEDS: ASPIRIN 81 MG ENTERIC TAB PO SCH (06:40)
[2016-12-04] MEDS: amLODIPine 5 MG TAB PO SCH (06:40)
[2016-12-04] MEDS: SLF 3 ML SYR IV SCH ×3 (06:41→20:49)
[2016-12-04] MEDS: PANTOPRAZOLE 40MG TAB (PROTONIX) PO SCH (06:41)
[2016-12-04] MEDS: LISINOPRIL 5 MG TAB PO SCH (06:41)
[2016-12-04] MEDS: HEPARIN SOD (PORCINE) 5000 UNITS/ML VIAL SQ SCH ×3 (06:41→20:49)
[2016-12-04] MEDS: HumaLOG INSULIN (NovoLOG) PER UNIT SC SCH (07:30)
[2016-12-04] MEDS: (RENVELA) SEVELAMER **CARBONate** 800 MG TAB PO SCH ×3 (08:18→17:04)
--- NOTE | 2016-12-04 09:06 | IPNPDOC ---
Subjective Date Seen The patient was seen on 12/04/16. Subjective Chief Complaint/HPI The patient is a 81-year-old female admitted with a reason for visit of Fluid Overload And Symptomatic Anemia. General: Denies: Chills, Night Sweats Constitutional: Denies: Chills, Fever Eyes: Denies: Pain, Vision change ENT: Denies: Head Aches, Ear Pain Skin: Denies: Rash, Lesions Pulmonary: Denies: Dyspnea, Cough Cardiovascular: Denies: Chest Pain, Palpitations Gastrointestinal: Denies: Nausea, Vomiting Genitourinary: Reports: Incontinence, Denies: Dysuria, Frequency Hematologic: Denies: Bruising, Bleeding Excessively Objective Physical Examination General Exam: Positive: Alert, Cooperative, No Acute Distress ENT Exam: Positive: Atraumatic, Mucous membr. 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 CT Chest noted, large Mediastinal Mass 7.5 x 7.5 cm concerning for possible malignancy Pulmonary consult appreciated--s/p Biopsy on 11/28 Biopsy results notable for Small Cell Ca Oncology--input appreciated, patient scheduled to begin chemotherapy at some point this week MRI Brain and CT Abd/Pel with no evidence of metastasis I have also spoken with Radiation-Oncologist, Dr. Brady who believes that the patient would benefit from chemotherapy predominantly and will consider concurrent radiation this week The patient's son Anastacio Goetz was updated on 12/03 of the patient's current condition. He reports that he will f/u with PFS regarding the patient's disposition today/tomorrow. ESRD on HD Receives HD on , W, F Appreciate Nephrology's assistance with this Symptomatic Anemia Hgb noted to be 6.9 on admission Patient with Heme-positive stool in the ER The patient has received 2 Units of PRBC's and her Hgb is now stable GI aware of the case--no need for urgent scope during this admission especially in light of the patient's current diagnosis Elevated Troponins likely 2/2 Demand Ischemia from Symptomatic Anemia EKG with no acute ST-T changes Peak Troponin of 0.20 Patient w/o any complaints of chest pain at this time 2D ECHO notable for preserved EF, severe MR, elevated Right Ventricle Pressure ( likely 2/2 mediastinal mass) We will cont to monitor the patient on Telemetry Hypertension, stable Continue lisinopril, Coreg, isosorbide mononitrate Dyslipidemia Continue statin Diabetes mellitus Continue insulin sliding scale GERD Continue PPI Hypothyroidism Continue Synthroid Dementia Continue donepezil Depression Continue cervical History of breast cancer with left mastectomy DVT prophylaxis Heparin SC Dispo--We will continue to monitor her progress here at this time, and continue to ascertain the most appropriate disposition for the patient moving forward with the assistance of PFS. VS, I&O, 24H, Fishbone Vital Signs/I&O Vital Signs Date Time Temp Pulse Resp B/P (MAP) Pulse Ox O2 Delivery O2 Flow Rate FiO2 12/04/16 06:40 72 130/80 12/04/16 06:00 97.9 17 100 Nasal Cannula 3.0 11/29/16 06:00 99 I&O- Last 24 Hours up to 6 AM 12/04/16 06:00 Intake Total 360 ml Output Total 25 ml Balance 335 ml Laboratory Data 24H LABS Laboratory Tests 2 12/03/16 11:54: Bedside Glucose (Misc Panel) 180H 12/03/16 16:17: Bedside Glucose (Misc Panel) 149H 12/03/16 21:13: Bedside Glucose (Misc Panel) 228H 12/04/16 05:51: Anion Gap 9, Glomerular Filtration Rate 7.0L, Blood Urea Nitrogen 45H, Creatinine 6.11H, Sodium Level 137, Potassium Level 4.2, Chloride Level 102, Carbon Dioxide Level 26, Calcium Level 9.6 CBC/BMP Laboratory Tests 12/04/16 05:51 Calcium Level 9.6 MISSY HARRIS MD Dec 04, 2016 09:06
[2016-12-04 10:08] LABS: MEAN CORPUSCULAR HEMOGLOBIN 31.1 pg (27.0-33.0); MEAN CORPUSCULAR HGB CONC 31.1 g/dl (32.0-36.5); MEAN CORPUSCULAR VOLUME 99.8 fl (80.0-96.0); RED CELL DISTRIBUTION WIDTH 18.7 % (11.5-14.5); WHITE BLOOD COUNT 7.2 K/mm3 (4.0-10.0)
--- NOTE | 2016-12-04 10:55 | IPN ---
DATE OF VISIT: 12/04/2016 Mrs. Goetz seen this morning on her bedside during hemodialysis. She is feeling, well and her dyspnea has improved. She denies any nausea, vomiting, fever, or chills. She is waiting for oncology to make a decision about her chemotherapy. On physical exam, temperature 97.9 degrees Fahrenheit, heart rate 72 per minute, and respiratory rate 17 per minute. Blood pressure 130/80 mmHg, and oxygen saturation 100% on 3 liters oxygen. Head is atraumatic. Neck is supple and without jugular venous distention (JVD) or thyroid enlargement. Dialysis catheter and right jugular vein is intact. Heart sounds are regular, and lungs clear to auscultation. Abdomen: Soft and nontender and without palpable organomegaly. Bowel sounds are normal. Extremities have no cyanosis or clubbing. Her left arm lymphatic edema is unchanged, and her arm is wrapped in Ruperto bandage. Neurologically, she is awake, alert, and at her baseline mentation. Today's labs show WBC count 7.2, hemoglobin 8.5 and hematocrit 27.2. Platelets 175. Sodium 137 and potassium 4.2. BUN 45 and creatinine 6.11. PROBLEMS: 1. End-stage renal disease. Patient is being dialyzed today, and she is tolerating her dialysis treatment very well. Volume status is well-compensated. 2. Anemia. Her anemia has worsened. She will be given Aranesp 300 mcg with hemodialysis. 3. Hypertension. Blood pressure is stable at present and will continue with current antihypertensive medications. 4. Small-cell lung cancer with hilar lymphadenopathy. Patient is waiting for oncology to make a decision about her chemotherapy. 5. Shortness of breath. This was mostly related to lymphadenopathy and small-cell lung cancer issue. Her volume status is very well compensated and will try to manage it with hemodialysis.
[2016-12-04] MEDS ORDERED: HEPARIN 1,000 UNITS/ML 10ML VIAL (FOR RADIOLOGY& DIALYSIS ONLY) IV ONE (12:00)
[2016-12-04] MEDS ORDERED: HEPARIN 1,000 UNITS/ML 10ML VIAL (FOR RADIOLOGY& DIALYSIS ONLY) XX ONE (12:00)
[2016-12-04 14:00] VITALS: BP 132/85
[2016-12-04 18:00] VITALS: BP 128/74
[2016-12-04] MEDS: QUEtiapine FUMARATE 25 MG TAB PO SCH (20:48)
[2016-12-04] MEDS: PRAVASTATIN 10 MG TAB PO SCH (20:48)
[2016-12-04 22:55] VITALS: BP 131/68
[2016-12-05] MEDS: IPRATROPIUM 0.5MG/ALBUTEROL 2.5MG INH SOL UD 3ML (DUONEB)(J7620) NEB SCH ×4 (01:14→19:41)
[2016-12-05 02:00] VITALS: BP 118/90
[2016-12-05] MEDS: LEVOTHYROXINE 25MCG TABLET (0.025MG) PO SCH (05:38)
[2016-12-05] MEDS: HEPARIN SOD (PORCINE) 5000 UNITS/ML VIAL SQ SCH ×3 (05:38→21:34)
[2016-12-05] MEDS: SLF 3 ML SYR IV SCH ×3 (05:38→21:35)
[2016-12-05 06:00] VITALS: BP 120/73
[2016-12-05 06:42] LABS: CALCIUM LEVEL 9.5 MG/DL (8.8-10.2); CREATININE FOR GFR 4.08 MG/DL (0.55-1.02); GLOMERULAR FILTRATION RATE 11.1 (>32); POTASSIUM SERUM 4.1 MEQ/L (3.5-5.1)
[2016-12-05] MEDS: (RENVELA) SEVELAMER **CARBONate** 800 MG TAB PO SCH ×3 (09:36→18:39)
[2016-12-05] MEDS: ASPIRIN 81 MG ENTERIC TAB PO SCH (09:36)
[2016-12-05] MEDS: DONEPEZIL 5 MG TAB PO SCH (09:36)
[2016-12-05] MEDS: ISOSORBIDE MON. (IMDUR) 30 MG XR TAB PO SCH (09:37)
[2016-12-05] MEDS: PANTOPRAZOLE 40MG TAB (PROTONIX) PO SCH (09:37)
[2016-12-05] MEDS: METOPROLOL TART 25 MG TABLET PO SCH ×2 (09:37→21:34)
[2016-12-05] MEDS: amLODIPine 5 MG TAB PO SCH (09:38)
[2016-12-05] MEDS: LISINOPRIL 5 MG TAB PO SCH (09:38)
[2016-12-05 10:00] VITALS: BP 110/63
[2016-12-05 14:00] VITALS: BP 133/71
--- NOTE | 2016-12-05 21:31 | IPN ---
DATE: 12/05/2016 SUBJECTIVE: Patient seen and examined in the room today. Patient stated that her breathing is improving. At the time of encounter, patient is using 2 liters nasal cannula. Per patient, patient only used 2 units nasal cannula intermittent at home. Patient denies any overnight events. No acute complaints. I did have a chance to discuss with the patient's son in the afternoon. He stated he will require assistance at home to take care of the patient. He would like to have a chance to discuss with director case management and social work to see other options for him. He would like more information with regard to placement. OBJECTIVE: VITAL SIGNS: Temperature is 98.3, pulse is 86, respirations 20, blood pressure is 120/73, pulse oximetry is 100% with 2 liters nasal cannula. GENERAL: No sign of acute distress, alert and oriented times three. HEENT: Normocephalic, atraumatic. Extraocular motion grossly intact. CARDIOVASCULAR: Positive S1, S2, regular rate. LUNGS: Diminished breath sounds, but I cannot appreciate any wheezes. ABDOMEN: Soft, nontender, nondistended. Bowel sounds present. EXTREMITIES: Some mild pitting edema bilaterally. There is chronic lymphedema at the left upper extremity, wrapped with Ruperto bandage. No sign of cyanosis. LABORATORY DATA: Sodium is 134, potassium 4.1, chloride 100, carbon dioxide 25, BUN is 26, creatinine 4.06, GFR is 11.1, fasting glucose 163, calcium 9.5. ASSESSMENT AND PLAN: 1. 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 CT chest was performed. The mass was measuring 7.5 x 7.5 cm. Patient was seen by the oncologist, Dr. Wong. The plan was to start chemotherapy this week. Patient was also evaluated by Dr. Rodríguez. Patient may benefit from chemotherapy first, and then patient will be re-evaluated for possible radiation. Patient's son is Mr. Anastacio Goetz. His cell phone number is [phone]. He stated he is willing to bring the patient home, but he may require assistance to take care of the patient, and he also would like more information with regard to placement. I will follow with social service agency director and case management tomorrow. 2. MRI of the brain and CT abdomen and pelvis did not show any evidence of metastasis. 3. End-stage renal disease, on hemodialysis. Patient is on dialysis Sunday, Sunday, Sunday. Appreciate nephrology's assistance. 4. Symptomatic anemia. Patient had a hemoglobin of 6.9 on admission. Patient received 2 packed red blood cells transfusion on 11/28/2016. Will follow with hemoglobin and hematocrit. 5. Dementia. Continue donepezil. 6. Hypotension, on Synthroid. 7. Gastroesophageal reflux disease, on proton pump inhibitor (PPI). 8. Diabetes, on sliding scale. 9. Dyslipidemia, on statin. 10. Hypertension, on lisinopril, Coreg, isosorbide mononitrate. 11. History of elevated troponin. Patient had a troponin of 0.2 on 11/28/2016, most likely secondary to demand ischemia. No chest pain. 12. Anxiety, on Xanax as needed. Patient is on Seroquel. 13. Deep vein thrombosis (DVT) prophylaxis. Patient is on heparin.
[2016-12-05] MEDS: QUEtiapine FUMARATE 25 MG TAB PO SCH (21:34)
[2016-12-05] MEDS: PRAVASTATIN 10 MG TAB PO SCH (21:34)
[2016-12-05] MEDS: ALPRAZolam 0.25 MG TAB PO PRN (21:34)
[2016-12-05 22:00] VITALS: BP 136/83
[2016-12-06] MEDS: IPRATROPIUM 0.5MG/ALBUTEROL 2.5MG INH SOL UD 3ML (DUONEB)(J7620) NEB SCH ×4 (01:10→19:51)
[2016-12-06 02:00] VITALS: BP 142/64
[2016-12-06 06:00] VITALS: BP 103/58
[2016-12-06] MEDS: LEVOTHYROXINE 25MCG TABLET (0.025MG) PO SCH (06:30)
--- NOTE | 2016-12-06 06:34 | IPN ---
DATE: 12/05/2016 Mrs. Goetz is seen this morning on her bedside. She looks comfortable sitting in the chair. She reports that she had a good breakfast. She denies any nausea, vomiting, diarrhea or abdominal pain. Her dyspnea has improved and she has been stable. She has no fever or chills. PHYSICAL EXAMINATION: Temperature 98.3 degrees Fahrenheit, heart rate 86 per minute and respiratory rate 20 per minute. Blood pressure 110/63 mmHg and oxygen saturation 97% on 2 liters oxygen. Head is atraumatic. Neck veins are not abnormally distended. She has a dialysis catheter in right internal jugular vein. Ears, nose and throat are unremarkable. Pupils equal and reactive to light and sclerae is anicteric. Heart sounds are regular and lungs clear to auscultation bilaterally. Abdomen is soft and nontender and bowel sounds are normal. She has no palpable organomegaly. Extremities have no cyanosis or clubbing. Left arm has massive lymphatic edema which is chronic and her arm is wrapped in Ruperto bandage. She has no edema on her lower extremities. Neurologically she is awake, alert and oriented times three. Today's labs show sodium level 134, potassium 4.1, BUN 26 and creatinine 4.08. PROBLEMS: 1. End-stage renal disease. The patient underwent hemodialysis yesterday. She did complete her dialysis treatment and tolerated it well. We will schedule her next dialysis for tomorrow. 2. Hypertension. Blood pressure is very well controlled on current antihypertensive medications. No changes are needed. 3. Small-cell lung cancer. The patient has been seen by oncology. At present we are waiting for a final decision about chemotherapy and placement. Apparently her family has indicated that they will not be able to take care of her at home. I will discuss with hospitalist service for further plans.
[2016-12-06 06:36] LABS: MEAN CORPUSCULAR HEMOGLOBIN 31.1 pg (27.0-33.0); MEAN CORPUSCULAR HGB CONC 31.6 g/dl (32.0-36.5); MEAN CORPUSCULAR VOLUME 98.2 fl (80.0-96.0); WHITE BLOOD COUNT 8.1 K/mm3 (4.0-10.0)
[2016-12-06] MEDS: amLODIPine 5 MG TAB PO SCH (06:43)
[2016-12-06] MEDS: ISOSORBIDE MON. (IMDUR) 30 MG XR TAB PO SCH (06:43)
[2016-12-06] MEDS: DONEPEZIL 5 MG TAB PO SCH (06:43)
[2016-12-06] MEDS: PANTOPRAZOLE 40MG TAB (PROTONIX) PO SCH (06:43)
[2016-12-06] MEDS: ASPIRIN 81 MG ENTERIC TAB PO SCH (06:43)
[2016-12-06] MEDS: SLF 3 ML SYR IV SCH ×4 (06:44→21:11)
[2016-12-06] MEDS: (RENVELA) SEVELAMER **CARBONate** 800 MG TAB PO SCH ×3 (06:44→17:07)
[2016-12-06] MEDS: HEPARIN SOD (PORCINE) 5000 UNITS/ML VIAL SQ SCH ×3 (06:44→21:09)
[2016-12-06] MEDS: METOPROLOL TART 25 MG TABLET PO SCH ×2 (06:44→21:09)
[2016-12-06] MEDS: LISINOPRIL 5 MG TAB PO SCH (06:45)
[2016-12-06 06:55] LABS: ALBUMIN 2.7 GM/DL (3.2-5.2); CREATININE FOR GFR 5.19 MG/DL (0.55-1.02); GLOMERULAR FILTRATION RATE 8.4 (>32); PHOSPHORUS LEVEL 2.6 MG/DL (2.5-4.9); POTASSIUM SERUM 4.3 MEQ/L (3.5-5.1)
[2016-12-06] MEDS ORDERED: HEPARIN 1,000 UNITS/ML 10ML VIAL (FOR RADIOLOGY& DIALYSIS ONLY) XX ONE (11:00)
[2016-12-06] MEDS ORDERED: HEPARIN 1,000 UNITS/ML 10ML VIAL (FOR RADIOLOGY& DIALYSIS ONLY) IV ONE (11:00)
--- NOTE | 2016-12-06 12:28 | IPN ---
DATE: 12/06/2016 Mrs. Goetz is seen this morning during hemodialysis on her bedside. She is feeling well and denies any new complaints. She has no dyspnea, chest pain, nausea or vomiting. On physical examination, temperature 98.7 degrees Fahrenheit, heart rate 82 per minute and respiratory rate 16 per minute. Blood pressure 103/58 mmHg and oxygen saturation 95% on room air. Head is atraumatic. Neck is supple and without jugular venous distention (JVD) or thyroid enlargement. Hemodialysis catheter is intact in right internal jugular vein. Heart sounds are regular. Lungs clear to auscultation. Abdomen: Soft and nontender and without a palpable organomegaly. Bowel sounds are normal. Extremities have no cyanosis or clubbing. Left arm lymphatic edema is slightly improved. Her arm is wrapped in Ruperto bandage. There is no peripheral edema on her legs. Skin: No rash or ulcers. Neurologically, she is awake, alert and oriented times three. Today's labs show WBC count 8.1, hemoglobin 8.7 and hematocrit 27.6. Platelets 194. Sodium 134 and potassium 4.3. BUN 45 and creatinine 5.19. PROBLEMS: 1. End-stage renal disease. The patient is being dialyzed today and she is tolerating her dialysis treatment well. We are trying to remove about 2 liters of fluid. 2. Anemia. Her anemia is without any significant change. She is receiving Aranesp 300 mcg once a week. We will add iron studies to her lab work. 3. Shortness of breath. Volume status is well-compensated. Her dyspnea has improved. She has been diagnosed with small-cell lung cancer with mediastinal lymphadenopathy. She is waiting for chemotherapy. 4. Hyponatremia. This is mild and likely to correct with dialysis. No intervention is indicated. 5. Small-cell lung cancer. The patient is currently waiting for radiation and chemotherapy. Family is working with the hospitalist service for possible placement.
[2016-12-06 14:00] VITALS: BP 109/59
--- NOTE | 2016-12-06 17:24 | IPN ---
DATE: 12/06/2016 SUBJECTIVE: The patient seen and examined in the room today. The patient is able to maintain good breathing on room air. Does not require any oxygen support. No overnight events reported. OBJECTIVE: VITAL SIGNS: Temperature is 98.7, pulse 82, respirations 16, blood pressure is 103/58, pulse oximetry is 95% on room air. GENERAL: No sign of acute distress. Alert and oriented times three. HEENT: Normocephalic, atraumatic. Extraocular movements grossly intact. CARDIOVASCULAR: Positive S1, S2, regular rate. LUNGS: Clear to auscultation bilaterally. ABDOMEN: Soft, nontender, nondistended. Bowel sounds present. No rebound. No guarding. EXTREMITIES: Mild pitting edema bilaterally. There is some chronic lymphadenopathy at the left upper extremities. No sign of cyanosis. LABORATORY DATA: WBC is 8.1, hemoglobin 8.7, hematocrit 27.6, platelet count 194. Sodium is 134, potassium 4.3, chloride is 99, carbon dioxide 26, BUN 45, creatinine 5.19, GFR is 8.4, fasting glucose 145. Calcium is 10. Phosphorous 2.6, albumin level 2.7. ASSESSMENT AND PLAN: 1. Small cell carcinoma of the right lung. CT chest was performed. The patient has a mass measuring 7.5 x 7.5 cm. The patient was evaluated by the oncologist, Dr. Wong. Will anticipate the patient will be discharged tomorrow. The patient has an appointment with Dr. Wong tomorrow in the afternoon. The patient will be going home to live with her son, Mr. Chaves. His cell phone # is [phone]. Also have contacted Dr. Rodríguez. Dr. Rodríguez is aware of the patient. business services manager has been assisting on the patient's disposition. Will see if we can provide some home health services for the patient's son. MRI of the brain and CT abdomen and pelvis did not show any evidence of metastases. 2. End-stage renal disease. On hemodialysis. The patient has temporary dialysis catheter. The patient's dialysis days are Sunday, Sunday and Sunday. We appreciate Dr. Riley's assistance. 3. Symptomatic anemia. The patient had a hemoglobin of 6.9 on admission. The patient received 2 packs red blood cells transfusion on November 28, 2016. The patient's hemoglobin and hematocrit has been stable. 4. Dementia. On Donepezil. 5. Hypothyroidism. On Synthroid. 6. Gastroesophageal reflux disease. On proton pump inhibitor (PPI). 7. Diabetes. On sliding scale. 8. Dyslipidemia. On statin. 9. Hypertension. On lisinopril, Coreg, isosorbide mononitrate. 10. History of elevated troponin. Most likely due to demand ischemia. No chest pain. 11. Anxiety. On as needed Xanax. The patient on Seroquel. 12. Deep venous thrombosis (DVT) prophylaxis. The patient on heparin.
[2016-12-06] MEDS: QUEtiapine FUMARATE 25 MG TAB PO SCH (21:08)
[2016-12-06] MEDS: ALPRAZolam 0.25 MG TAB PO PRN (21:08)
[2016-12-06] MEDS: PRAVASTATIN 10 MG TAB PO SCH (21:08)
[2016-12-06 22:00] VITALS: BP 102/63
[2016-12-07] VITALS (14 sets, daily range): BP systolic 68–118; BP diastolic 50–70
[2016-12-07] MEDS ORDERED: RAMELTEON 8 MG TAB (ROZEREM) PO ONE
[2016-12-07] MEDS: IPRATROPIUM 0.5MG/ALBUTEROL 2.5MG INH SOL UD 3ML (DUONEB)(J7620) NEB SCH ×4 (00:28→21:09)
[2016-12-07] MEDS: IPRATROPIUM 0.5MG/ALBUTEROL 2.5MG INH SOL UD 3ML (DUONEB)(J7620) NEB PRN (02:05)
[2016-12-07] MEDS: LEVOTHYROXINE 25MCG TABLET (0.025MG) PO SCH (06:06)
[2016-12-07] MEDS: SLF 3 ML SYR IV SCH ×3 (06:06→21:00)
[2016-12-07] MEDS: HEPARIN SOD (PORCINE) 5000 UNITS/ML VIAL SQ SCH ×4 (06:07→21:40)
[2016-12-07 06:53] LABS: ALBUMIN 2.5 GM/DL (3.2-5.2); CALCIUM LEVEL 10.2 MG/DL (8.8-10.2); CREATININE FOR GFR 3.44 MG/DL (0.55-1.02); GLOMERULAR FILTRATION RATE 13.5 (>32); PHOSPHORUS LEVEL 2.3 MG/DL (2.5-4.9)
[2016-12-07 06:54] LABS: MEAN CORPUSCULAR HEMOGLOBIN 31.1 pg (27.0-33.0); MEAN CORPUSCULAR HGB CONC 31.4 g/dl (32.0-36.5); MEAN CORPUSCULAR VOLUME 98.9 fl (80.0-96.0); WHITE BLOOD COUNT 7.5 K/mm3 (4.0-10.0)
[2016-12-07] MEDS: (RENVELA) SEVELAMER **CARBONate** 800 MG TAB PO SCH ×3 (09:35→18:00)
[2016-12-07] MEDS: amLODIPine 5 MG TAB PO SCH (09:37)
[2016-12-07] MEDS: DONEPEZIL 5 MG TAB PO SCH (09:37)
[2016-12-07] MEDS: PANTOPRAZOLE 40MG TAB (PROTONIX) PO SCH (09:37)
[2016-12-07] MEDS: ISOSORBIDE MON. (IMDUR) 30 MG XR TAB PO SCH (09:37)
[2016-12-07] MEDS: METOPROLOL TART 25 MG TABLET PO SCH (09:38)
[2016-12-07] MEDS: ASPIRIN 81 MG ENTERIC TAB PO SCH (09:38)
[2016-12-07] MEDS: LISINOPRIL 5 MG TAB PO SCH (09:38)
--- NOTE | 2016-12-07 11:06 | NOCOX ---
DATE OF PROCEDURE: 12/07/2016 INTERPRETATION: Nocturnal oxymetry recording was performed on 12/07/2016. The patient was on room air at the beginning of the study. Oxygen saturation was 93% with a heart rate of 67 while awake. There were variable desaturations throughout the entire evening. Oxygen saturations range fro 64% to 100%. Heart rate ranged from 63 to 122. The longest continuous time with an oxygen saturation less than 88% was 1 minute and 10 seconds total. The total continuous time with an oxygen saturation less than 80% was 18 minutes. IMPRESSION: Variable desaturations with hypoxia that would qualify for home oxygen if this is her stable state. Recommend formal sleep study if there is clinical suspicion of obstructive sleep apnea.
--- NOTE | 2016-12-07 12:38 | IPN ---
DATE: 12/07/2016 Mrs. Goetz is seen this morning on her bedside. She is sitting in the chair. She remains weak and failed her physical therapy evaluation for home safety. She denies any nausea or vomiting. She has no dyspnea or chest pain at present. PHYSICAL EXAMINATION Temperature 98.4 degrees Fahrenheit, heart rate 87 per minute and respiratory rate 16 per minute. Blood pressure 105/50 mmHg and oxygen saturation 95% on 2 liters oxygen. Head is atraumatic. Ears, nose and throat are unremarkable. Neck is supple and without JVD or thyroid enlargement. Heart sounds are regular and lungs clear to auscultation. Abdomen soft and nontender and without any palpable organomegaly. Bowel sounds are normal. Extremities have no cyanosis or clubbing. Left arm has chronic lymphatic edema and is wrapped in an Ruperto bandage. Neurologically she is at her baseline mentation without a focal deficit. Today's labs show WBC count 7.5, hemoglobin 8.4 and hematocrit 26.6. Platelets 179. Sodium 136 and potassium 4.0. BUN 27 and creatinine 3.44. PROBLEMS: 1. End-stage renal disease. The patient is regularly dialyzed on Sunday, Sunday and Sunday schedule. We will plan to dialyze her tomorrow. 2. Hyponatremia. Her sodium level has improved to normal range. No intervention is indicated at this point. 3. Hypophosphatemia. Today her phosphorus level is low at 2.3. She is probably not eating very well. I will cut down her Renvela dose and stop it for now. We will monitor her phosphorus level over the next few days. 4. Anemia. Her anemia has been stable and will continue to monitor closely. She is receiving Aranesp during dialysis. 5. Shortness of breath. Her volume status is well-compensated and she is being maintained with hemodialysis. 6. Small-cell lung cancer. The patient is waiting for chemotherapy and placement. The hospitalist service is trying to coordinate her care.
[2016-12-07] MEDS ORDERED: SODIUM CHLORIDE 0.9% 1000 ML IV ONE (15:00)
[2016-12-07] MEDS ORDERED: NS 500 ML IV ONE ×2 (15:45→17:00)
[2016-12-07] MEDS: FAMOTIDINE 20 MG TAB PO SCH (15:47)
[2016-12-07] MEDS: glipiZIDE (GLUCOTROL) 5 MG TAB PO SCH (15:47)
[2016-12-07] MEDS ORDERED: HEPARIN SOD (PORCINE) 5000 UNITS/ML VIAL IV ONE (16:15)
[2016-12-07] MEDS ORDERED: HEPARIN 1,000 UNITS/ML 10ML VIAL (FOR RADIOLOGY& DIALYSIS ONLY) XX ONE (16:45)
--- NOTE | 2016-12-07 19:04 | IPN ---
DATE: 12/07/2016 SUBJECTIVE: The patient is seen and examined in the room today. In the morning, the patient feels very tired. She did not wake up until 10 o'clock, and she finally started eating her breakfast. At the time, the patient had a blood pressure around 105/50 and the patient was maintaining good oxygen saturation in the room. However, shortly after, the patient started having difficulty breathing, and the patient started requiring nasal cannula. Later in the afternoon, the patient started having acute decrease of blood pressure and the systolic blood pressure was in the 60s and the diastolic blood pressure cannot be measured. The patient was examined in the room. The patient stated she is feeling fine, she just feels a little bit weak. OBJECTIVE: VITAL SIGNS: Vitals in the afternoon: Temperature 96.8, pulse is 72, blood pressure is 68/"22," oxygen saturation is 99% with 2 liters nasal cannula. GENERAL: Fatigued. No sign of acute distress. The patient is alert and oriented times three. HEENT: Normocephalic, atraumatic. Extraocular motor grossly intact. CARDIOVASCULAR: Positive S1, S2, regular rate. LUNGS: Clear to auscultation bilaterally. ABDOMEN: Soft, nontender, nondistended. Bowel sounds present. No rebound, no guarding. EXTREMITIES: Pitting edema bilaterally, chronic lymphedema of the left upper extremity. No sign of cyanosis. LABORATORY DATA: WBC is 7.5, hemoglobin 8.4, hematocrit 26.6, platelet count is 179. Sodium is 136, potassium 4, chloride is 101, carbon dioxide 27, BUN 27, creatinine 3.44, GFR is 13.5, fasting glucose 163, calcium is 10.2, phosphorus 2.3, albumin level 2.5. ASSESSMENT AND PLAN: 1. Severe hypotension. 2. Small cell carcinoma of the right lung. 3. End-stage renal disease, on hemodialysis. 4. Symptomatic anemia. 5. Dementia. 6. Hypothyroidism. 7. Gastroesophageal reflux disease. 8. Diabetes. 9. Dyslipidemia. 10. History of hypertension, currently hypotensive. 11. History of elevated troponin. 12. Anxiety. Plan: The patient has acute decompensation, and the patient was transferred to the intensive care unit (ICU) for upper level of care. We will start the attempt to maintain the patient with IV fluid. With fluid resuscitation, the patient has improvement of the blood pressure at this moment. I have reached out to the oncologist, Dr. Wong, and initial plan was starting the chemotherapy on Sunday; however, due to acute decompensation, we will try to set up for inpatient chemotherapy in the next 24 hours. Due to acute decompensation, I will try to obtain a new CT scan of the chest. Unfortunately, we could not find any access for the IV contrast. The patient's prognosis is poor. According to oncologist, the patient's current chemo was aiming for palliative care instead of the total cure. I had a chance to talk to the patient and the patient's proxy, her son, Mr. Anastacio Goetz. Cell phone number is [phone]. They are aware the patient's condition is critical. All of his questions were answered. DULCE
[2016-12-07] MEDS: QUEtiapine FUMARATE 25 MG TAB PO SCH (21:39)
[2016-12-07] MEDS: PRAVASTATIN 10 MG TAB PO SCH (21:39)
[2016-12-07] MEDS: ALPRAZolam 0.25 MG TAB PO PRN (22:11)
[2016-12-08] VITALS (14 sets, daily range): BP systolic 92–132; BP diastolic 53–87; O2SAT 94–99
--- NOTE | 2016-12-08 01:30 | REPUSA ---
CLINICAL HISTORY: Lung mass. Please evaluate. TECHNIQUE: Axial and reformatted sagittal and coronal images of the chest obtained without IV contras t administration. FINDINGS: Comparison is made to the prior exam performed on 11/28/2016. There is no change in the size, appearance or density of the previously described right paratracheal/ pretracheal mass measuring 6.9x7.5 cm in its largest transverse and anteroposterior dimensions respec tively. There is no change in the size of the enlarged right hilar lymph nodes the largest measuring 1.7 cm. Increase in the size of the right supraclavicular lymphadenopathy. The largest lymph node measures 4. 2 cm on the current exam. Right internal jugular central catheter is in good position with its tip in the superior vena cava. Unchanged small bilateral pleural effusions. Unchanged passive atelectatic airspace disease of the posterior basal segment of the lower lobes. Unchanged enlarged pulmonary artery. Findings are suggestive of pulmonary hypertension. Unchanged atherosclerotic thoracic aorta and visualized great vessels. Enlarged heart and normal pericardium. Normal visualized trachea and thickened bronchi. The remaining lungs are well expanded. Normal remaining pulmonary parenchyma. Normal pleura. Moderate spondylosis. Normal visualized upper abdomen. IMPRESSION: 1. Comparison is made to the prior exam performed on 11/28/2016. 2. No change in the size, appearance or density of the previously described right paratracheal/pretra cheal mass measuring 6.9x7.5 cm in its largest transverse and anteroposterior dimensions respectively . 3. No change in the size of the enlarged right hilar lymph nodes the largest measuring 1.7 cm. 4. Increase in the size of the right supraclavicular lymphadenopathy. The largest lymph node measures 4.2 cm on the current exam. 5. Right internal jugular central catheter is in good position with its tip in the superior vena cava . 6. Unchanged small bilateral pleural effusions. 7. Unchanged passive atelectatic airspace disease of the posterior basal segment of the lower lobes. 8. Unchanged enlarged pulmonary artery. Findings are suggestive of pulmonary hypertension. 9. Unchanged atherosclerotic thoracic aorta and visualized great vessels.
[2016-12-08] MEDS: IPRATROPIUM 0.5MG/ALBUTEROL 2.5MG INH SOL UD 3ML (DUONEB)(J7620) NEB SCH ×4 (02:16→19:25)
[2016-12-08 04:42] LABS: MEAN CORPUSCULAR HEMOGLOBIN 30.6 pg (27.0-33.0); MEAN CORPUSCULAR HGB CONC 30.7 g/dl (32.0-36.5); MEAN CORPUSCULAR VOLUME 99.6 fl (80.0-96.0); RED CELL DISTRIBUTION WIDTH 18.1 % (11.5-14.5); WHITE BLOOD COUNT 6.8 K/mm3 (4.0-10.0)
[2016-12-08 04:55] LABS: ALBUMIN 2.6 GM/DL (3.2-5.2); CREATININE FOR GFR 4.45 MG/DL (0.55-1.02); GLOMERULAR FILTRATION RATE 10.1 (>32); PHOSPHORUS LEVEL 2.8 MG/DL (2.5-4.9); POTASSIUM SERUM 4.3 MEQ/L (3.5-5.1)
[2016-12-08] MEDS: LEVOTHYROXINE 25MCG TABLET (0.025MG) PO SCH (05:50)
[2016-12-08] MEDS: HEPARIN SOD (PORCINE) 5000 UNITS/ML VIAL SQ SCH (05:51)
[2016-12-08] MEDS: (RENVELA) SEVELAMER **CARBONate** 800 MG TAB PO SCH ×3 (08:05→18:00)
[2016-12-08] MEDS: PANTOPRAZOLE 40MG TAB (PROTONIX) PO SCH (08:05)
[2016-12-08] MEDS: ASPIRIN 81 MG ENTERIC TAB PO SCH (08:05)
[2016-12-08] MEDS: CINACALCET 30 MG TAB (SENSIPAR) PO SCH (08:05)
[2016-12-08] MEDS: DONEPEZIL 5 MG TAB PO SCH (08:05)
[2016-12-08] MEDS: FAMOTIDINE 20 MG TAB PO SCH (08:05)
[2016-12-08] MEDS: glipiZIDE (GLUCOTROL) 5 MG TAB PO SCH (08:34)
[2016-12-08] MEDS ORDERED: ALLOPURINOL 100 MG TAB PO ONE (11:15)
[2016-12-08] MEDS ORDERED: HEPARIN 1,000 UNITS/ML 10ML VIAL (FOR RADIOLOGY& DIALYSIS ONLY) IV ONE (11:45)
[2016-12-08] MEDS ORDERED: FOSAPREPITANT 150 MG in NS 245 ML IV ONE (12:30)
[2016-12-08] MEDS ORDERED: PALONOSETRON 0.25MG/5ML VIAL (ALOXI)(J2469 PER 25MCG) (FOR ONCOLOGY) IV ONE (12:30)
[2016-12-08] MEDS ORDERED: ACETAMINOPHEN TAB 650MG DOSE (2X325MG) PO ONE (12:30)
[2016-12-08] MEDS ORDERED: CARBOPLATIN IV ONE (13:00)
[2016-12-08] MEDS ORDERED: ONDANSETRON 4 MG TAB (S0181) PO PRN (13:00)
[2016-12-08] MEDS ORDERED: NS IV ONE ×2 (13:00→14:00)
[2016-12-08] MEDS ORDERED: ETOPOSIDE IV ONE (14:00)
[2016-12-08] MEDS ORDERED: dexameTHASONE 20 MG/5 ML VIAL (J1100) IV ONE (14:00)
--- NOTE | 2016-12-08 16:55 | IPN ---
DATE: 12/08/2016 SUBJECTIVE: The patient is seen and examined in the room today. The patient still requires increased oxygen support. The patient continues to feel fatigued. Yesterday, in the afternoon time, the patient had acute decompensation. The patient's blood pressure was extremely soft with a systolic blood pressure around 60 to 70s. One liter of fluid resuscitation was given to the patient, and the patient was transferred to the intensive care unit (ICU) for upper level of care. The patient's blood pressure was able to be maintained with the systolic around 100. I did have a chance to talk to the patient's proxy, son, and the patient yesterday regarding the patient's prognosis and the chemotherapy treatment goal. They both expressed understanding. They know the treatment is for palliative purpose. OBJECTIVE: VITAL SIGNS: Temperature 98.3, pulse is 82, respirations 18, blood pressure 100/63, pulse oximetry is 96% with 2 liters nasal cannula. GENERAL: Fatigued. No signs of acute distress. Alert and oriented times three. HEENT: Normocephalic, atraumatic. Extraocular motor grossly intact. CARDIOVASCULAR: Positive S1, S2, regular rate. LUNGS: Clear to auscultation bilaterally. ABDOMEN: Soft, nontender, nondistended. Bowel sounds present. No rebound, no guarding. EXTREMITIES: Pitting edema bilaterally. Chronic lymphedema left upper extremity. No sign of cyanosis. LABORATORY DATA: WBC is 6.8, hemoglobin 8, hematocrit 26, platelet count is 186. The patient's sodium is 137, potassium 4.3, chloride 104, carbon dioxide 24, BUN 37, creatinine 4.45, GFR is 10.1, fasting glucose 93, calcium is 10, albumin 2.6. ASSESSMENT AND PLAN: 1. Small cell lung cancer. 2. Severe hypotension. 3. End-stage renal disease, on hemodialysis. 4. Symptomatic anemia. 5. Dementia. 6. Hypothyroidism. 7. Gastroesophageal reflux disease. 8. Diabetes. 9. Dyslipidemia. 10. History of elevated troponin. 11. Anxiety. Plan: After one liter fluid resuscitation, the patient's blood pressure was able to be maintained stable. Patient is continuing to be monitored in the intensive care unit. I have contacted Dr. Riley. The patient was scheduled for hemodialysis today in the morning. I also had a chance to talk to the oncologist, Dr. Wong. The patient is scheduled to have inpatient chemotherapy this afternoon. During the morning rounds, the plan was explained to the patient's daughter and the patient. They both understand. The patient's prognosis is poor. We are looking for palliative approach for the patient's current condition. I also had chance to talk to the patient's proxy, his son, Anastacio Goetz, cell phone number [phone], and he is aware of the plan.
--- NOTE | 2016-12-08 17:15 | IPN ---
DATE: 12/08/2016 SUBJECTIVE: Mrs. Goetz is seen this morning during hemodialysis. I had discussed with Dr. Joana Cates multiple times yesterday afternoon and again this morning about her condition and care. She is now scheduled to receive her first chemotherapy this afternoon. We decided to dialyze her this morning. Yesterday she was hypotensive and fluid boluses were given with improvement in her blood pressure. She also had a CT scan of chest which did not show any significant change from previous CT scan. PHYSICAL EXAMINATION: VITAL SIGNS: Temperature 98.3 degrees Fahrenheit, heart rate 82 per minute and respiratory rate 18 per minute. Blood pressure 100/60 mmHg and oxygen saturation 96% on two liters oxygen. HEAD/NECK: Head is atraumatic. Neck is supple and without jugular venous distention (JVD). Oral mucosa is moist and healthy. Dialysis catheter is intact in right internal jugular vein. CARDIAC: Heart sounds are regular. LUNGS: With slightly diminished breath sounds bilaterally. There is no wheezing or rales audible. ABDOMEN: Soft and nontender. Bowel sounds are normal. There is no palpable organomegaly. EXTREMITIES: Have no cyanosis or clubbing. Left arm lymphatic edema is unchanged. LABORATORY DATA: Today's labs show WBC count 6.8, hemoglobin 8.0 and hematocrit 26.0. Sodium 137 and potassium 4.3. BUN 37 and creatinine 4.45. Calcium 10.0 and phosphorus 2.8. PROBLEMS: 1. End-stage renal disease. The patient is being dialyzed today. She is tolerating dialysis treatment very well. 2. Hypotension. She has chronic baseline hypotension with systolic blood pressure in 90s. Yesterday she did drop her blood pressure significantly which improved with fluid boluses. We will remove only one liter of fluid today with dialysis as tolerated. So far her blood pressure has been pretty stable. 3. Anemia related to end-stage renal disease and lung cancer. She is likely to require transfusion. We will continue to monitor her complete blood count (CBC) on daily basis. Will consider to transfuse her with her next hemodialysis. 4. Small-cell lung cancer. The patient is scheduled for first chemotherapy later this afternoon. She has no other intravenous (IV) access so her dialysis catheter will be used for chemotherapy.
--- NOTE | 2016-12-08 17:17 | REP ---
Clinical: Shortness of breath. Comparison: 11/27/2016. Findings: Mediastinum and cardiac silhouette are stable including mass density in the superior mediastinum. Lung gilmore demonstrate chronic interstitial changes and mild interstitial edema cannot be excluded. No obvious acute consolidation, effusion, or pneumothorax. Skeletal structures intact. Impression: Stable chest x-ray. Signed by David Ledesma MD 12/08/2016 05:10 P
[2016-12-08 17:21] LABS: ABG BASE EXCESS 2.2 (-2.0-2.0); ABG HCO3 27.1 MEQ/L (22.0-26.0); ABG PARTIAL PRESSURE CO2 43.6 mmHg (35.0-45.0); ABG PARTIAL PRESSURE O2 86.6 mmHg (75.0-100.0); ABG STANDARD HCO3 26.4 MEQ/L (22.0-26.0); ABG TOTAL CO2 28.4 MEQ/L (23.0-31.0); ABG pH (ARTERIAL) 7.411 UNITS (7.350-7.450)
[2016-12-08] MEDS: PRAVASTATIN 10 MG TAB PO SCH (20:34)
[2016-12-08] MEDS: QUEtiapine FUMARATE 25 MG TAB PO SCH (20:34)
[2016-12-08] MEDS: ALLOPURINOL 100 MG TAB PO SCH (20:34)
[2016-12-08] MEDS: ALPRAZolam 0.25 MG TAB PO PRN (20:38)
[2016-12-08] MEDS ORDERED: ALLOPURINOL 100 MG TAB PO SCH (21:00)
--- NOTE | 2016-12-08 21:16 | IPN ---
DATE: 12/08/2016 SUBJECTIVE: Barbra Goetz is an 81-year-old female with small cell lung carcinoma. She presented with a large thoracic mass. 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 The patient is going to be starting treatment with carboplatin, etoposide today and overnight the patient had an acute episode of decompensation with hypotension, which appeared to be fluid related. She improved after a fluid bolus. She denies any nausea, vomiting, chest pain, shortness of breath at this time. She is on 3-4 liters of oxygen via nasal cannula, and she is maintaining pressures. OBJECTIVE: She is afebrile. Pulse is 84. Blood pressure 106/63. Oxygen saturation is 95% on nasal cannula at 2 liters. EGOG of 3-4. General: Elderly female. She is lying in bed in no acute distress. She is comfortable. No pallor. Anicteric sclerae. Moist mucous membranes. Oropharynx is clear. Heart: Regular rate and rhythm. Lungs: Clear. No wheezes, rhonchi or rales. She does have decreased breath sounds bilaterally. Abdomen: Soft, nontender, nondistended. No hepatosplenomegaly or masses. Extremities: No edema. Neurological: Weakness in the left lower extremities. LABORATORY STUDIES: White count is 6800, hemoglobin is 8, platelet count is 186,000. IMPRESSION AND PLAN: An 81-year-old female with small cell carcinoma of the lung, now will be treated with palliative intent with carboplatin, etoposide. I discussed side effects with her in detail, including neuropathy, nephropathy, cytopenia, nausea, vomiting, diarrhea and the risk of . Given her severe comorbidities, risk of serious and fatal side effects were discussed in detail. The patient is agreeable to continuing treatment. The plan will be to dose chemotherapy after dialysis. Given that she is dialysis dependent, she will be dosed at 50% of the dose. The compliance examiner is on board as well as [facility] pharmacy as well. She will be managed in the intensive care unit (ICU) during treatment.
[2016-12-09] VITALS (15 sets, daily range): BP systolic 78–125; BP diastolic 46–69; O2SAT 95–96
[2016-12-09 04:40] LABS: MEAN CORPUSCULAR HEMOGLOBIN 31.3 pg (27.0-33.0); MEAN CORPUSCULAR HGB CONC 31.3 g/dl (32.0-36.5); MEAN CORPUSCULAR VOLUME 99.8 fl (80.0-96.0); RED CELL DISTRIBUTION WIDTH 17.9 % (11.5-14.5); WHITE BLOOD COUNT 4.9 K/mm3 (4.0-10.0)
[2016-12-09 04:57] LABS: ALBUMIN 2.5 GM/DL (3.2-5.2); CALCIUM LEVEL 9.8 MG/DL (8.8-10.2); CREATININE FOR GFR 3.05 MG/DL (0.55-1.02); GLOMERULAR FILTRATION RATE 15.6 (>32)
[2016-12-09] MEDS: LEVOTHYROXINE 25MCG TABLET (0.025MG) PO SCH (06:28)
[2016-12-09] MEDS: IPRATROPIUM 0.5MG/ALBUTEROL 2.5MG INH SOL UD 3ML (DUONEB)(J7620) NEB SCH ×3 (07:55→20:13)
[2016-12-09] MEDS: HEPARIN SOD (PORCINE) 5000 UNITS/ML VIAL SQ SCH ×3 (08:43→20:54)
[2016-12-09] MEDS: ALLOPURINOL 100 MG TAB PO SCH ×2 (08:43→20:54)
[2016-12-09] MEDS: (RENVELA) SEVELAMER **CARBONate** 800 MG TAB PO SCH ×3 (08:44→17:22)
[2016-12-09] MEDS: PANTOPRAZOLE 40MG TAB (PROTONIX) PO SCH (08:44)
[2016-12-09] MEDS: ASPIRIN 81 MG ENTERIC TAB PO SCH (08:44)
[2016-12-09] MEDS: FAMOTIDINE 20 MG TAB PO SCH (08:44)
[2016-12-09] MEDS: glipiZIDE (GLUCOTROL) 5 MG TAB PO SCH (08:44)
[2016-12-09] MEDS: DONEPEZIL 5 MG TAB PO SCH (08:44)
--- NOTE | 2016-12-09 15:39 | IPN ---
DATE: 12/09/2016 SUBJECTIVE: Patient is seen and examined in the room today. Patient stated she does not have any acute complaints. Oxygen saturation is maintained with 2 liter nasal cannula. Denies any pain. Denies any worsening of symptoms. Patient tolerated dialysis and the chemotherapy well. OBJECTIVE: VITAL SIGNS: Temperature 98.1, pulse is 90, respiratory rate 20, blood pressure is 87/55, pulse oximetry 100% with 2 liters nasal cannula. GENERAL: Fatigued. No sign of acute distress. Alert and oriented times three. HEENT: Normocephalic, atraumatic. Extraocular motor grossly intact. CARDIOVASCULAR: Positive S1, S2, regular rate. LUNGS: Clear to auscultation bilaterally. ABDOMEN: Soft, nontender, nondistended. Bowel sounds present. No rebound. No guarding. EXTREMITIES: Positive pitting edema bilaterally. Chronic lymphedema of the left upper extremity. No sign of cyanosis. LABORATORY DATA: WBC 4.9, hemoglobin 8.3 hematocrit 26.4, platelet count is 228. Sodium is 135, potassium 5, chloride 102, carbon dioxide 26, BUN 28, creatinine 3.05, GFR is 15.6, fasting glucose 247, calcium is 9.8, phosphorus 3. ASSESSMENT AND PLAN: 1. Small-cell lung cancer. Patient had her first chemotherapy on 12/08/2016. Patient tolerated chemotherapy without any adverse effect. Patient has limited access except temporarily dialysis catheter. If patient requires further chemotherapy, we may need to establish new access for future chemotherapy. 2. Severe hypotension. Currently patient's blood pressure is at baseline. Patient's small-cell lung cancer is causing mass effect to the major vasculature and trachea. 3. End-stage renal disease, on hemodialysis. Patient has a temporary dialysis catheter at the right chest. We appreciate nephrology's assistance. Patient's dialysis day is Sunday, Sunday, Sunday. 4. Symptomatic anemia. Continue to follow hemoglobin and hematocrit. Patient had a blood transfusion on 11/28/2016. Patient received 2 packed red blood cells. 5. Dementia. 6. Hypothyroidism, on supplement. 7. Gastroesophageal reflux disease. 8. Diabetes. On sliding scale and consistent-carbohydrate diet. 9. Dyslipidemia. 10. History of elevated troponin. 11. Anxiety. 12. Deep vein thrombosis (DVT) prophylaxis. Patient is on heparin.
--- NOTE | 2016-12-09 18:34 | IPN ---
DATE: 12/09/2016 SUBJECTIVE: The patient was seen and examined at the bedside today in the morning in the intensive care unit (ICU). Last 24-hour events were noted. The patient got hemodialysis done yesterday. After the hemodialysis, the patient was given a round of chemotherapy. The patient was slightly short of breath after the chemotherapy, requiring placement of continuous positive airway pressure (CPAP). However, the patient is feeling better now. She was sitting in the sofa today morning. REVIEW OF SYSTEMS: The patient denies any fevers, chills, rigors, headaches, nausea, vomiting or chest pain. She does report mild shortness of breath. She denies any pain abdomen, constipation, or diarrhea. Rest of review of systems is negative. OBJECTIVE: VITAL SIGNS: Temperature is 98.1 degrees Fahrenheit, blood pressure is 107/55, pulse is 108, respiratory rate of 20, saturating 98% on nasal cannula at two liters. INTAKE AND OUTPUT: Urine output is not recorded. The patient got ultrafiltration of one liter with hemodialysis yesterday. Weight in the bed scale is 70.4 kg. PHYSICAL EXAMINATION: GENERAL: The patient is awake, alert, and oriented times three, sitting in the sofa in no apparent distress. HEAD/NECK: Extraocular muscles intact. Pupils equal, round, and reactive to light. The patient has mild facial puffiness. Neck is supple. Mildly elevated jugular venous distention (JVD). CARDIOVASCULAR: S1, S2. Slight tachycardia; otherwise no murmur, rub, or gallop. RESPIRATORY: Mildly decreased breath sounds at the bases. No rales or rhonchi. EXTREMITIES: The patient has lymphedema of the left upper extremity. There is no edema of the bilateral lower extremities. Pulses are 2+. CENTRAL NERVOUS SYSTEM (DIGITAL COMMUNITY MANAGER): No focal deficit. Power is 5/5 in bilateral upper extremities. PSYCHIATRIC: Normal mood and affect. LABORATORY DATA: CBC showed a WBC 4.9, hemoglobin 8.3, platelets are 228. BMP done today morning showed sodium 135, potassium 5, chloride 102, bicarbonate 26, BUN 28, creatinine 3.05, albumin 2.5. CURRENT INPATIENT MEDICATIONS: The patient's medications were all reviewed by me. Intravenous (IV) morphine has been stopped. There is one dose of carboplatin and etoposide given yesterday. There is no other change in the medications. Allopurinol 200 mg by mouth twice a day has been added to the regimen. ASSESSMENT: An 81-year-old female with past medical history of end-stage renal disease on hemodialysis, initially admitted with symptomatic anemia and shortness of breath. Further workup showed the patient has small-cell cancer of the lung. PLAN: 1. End-stage renal disease on hemodialysis: The patient was dialyzed yesterday. She tolerated the ultrafiltration of one liter. The patient also got one liter of fluid with chemotherapy as well. She is currently hemodynamically stable and in no apparent respiratory distress with two liters of nasal cannula. No urgent need of hemodialysis today. The patient will be dialyzed according to her regular schedule on Sunday12/11/2016. 2. Anemia in end-stage renal disease: The patient's hemoglobin is 8.3 which is suboptimal. She will get one unit of packed red blood cells (PRBC) transfusion with hemodialysis on Sunday. Continue current dose of Aranesp 100 mcg IV with hemodialysis. 3. Small-cell lung cancer: The patient got her first chemotherapy yesterday which she tolerated well. Continue allopurinol 200 mg by mouth twice a day. 4. Intravenous (IV) access: The patient does not have any IV access available except her right internal jugular (IJ) tunneled hemodialysis catheter for hemodialysis. The patient is getting emergency medications and chemotherapy through the same access. I recommend getting port placement in this patient which will be technical, given history of left-sided breast surgery and lymphedema on the left. Please get vascular surgery on board.
[2016-12-09] MEDS: PRAVASTATIN 10 MG TAB PO SCH (20:53)
[2016-12-09] MEDS: QUEtiapine FUMARATE 25 MG TAB PO SCH (20:54)
[2016-12-09] MEDS: ALPRAZolam 0.25 MG TAB PO PRN (20:56)
--- NOTE | 2016-12-09 22:09 | IPN ---
DATE: 12/09/2016 SUBJECTIVE: Ms. Goetz is an 81-year-old female with extended stage lung carcinoma, currently receiving inpatient carboplatin/etoposide. Multiple comorbidities, including end-stage renal disease, dialysis dependent, pulmonary hypertension, hypertension, diabetes. Yesterday she did receive half dose carboplatin and etoposide; however, during infusion of etoposide, she became hypoxic and short of breath; hence, only 80% of etoposide was infused. Continuous positive airway pressure (CPAP) was introduced, and she currently tells me she feels much better. VITAL SIGNS: Notably heart rate in the 100s, blood pressure 102/70s, and oxygen saturation is currently 100% on 2 liters. She has also been eating. She denies any chest pain, palpitations, or shortness of breath. OBJECTIVE: Vital signs as above. GENERAL: Elderly female. She is lying in bed in no acute distress. HEART: Sinus tachycardia. LUNGS: Decreased breath sounds at the bases. Otherwise no wheezes, rhonchi. ABDOMEN: Soft, nontender, nondistended. No hepatosplenomegaly or masses. EXTREMITIES: Left arm lymphedema; otherwise unremarkable. IMPRESSION: An 81-year-old female with extended stage small-cell lung carcinoma with multiple comorbidities, receiving inpatient chemotherapy with carboplatin, etoposide. ECOG performance status of 3-4. PLAN: If tolerated, next chemotherapy will be on Sunday, and I will instruct the pharmacy to decrease the etoposide mixture volume to decrease her total volume intake with the next chemotherapy. She has also been managed in the intensive care unit (ICU) by Dr. Matt and also the hospitalist, Dr. Joana Cates. I will also discuss with Dr. Riley, marketing officer, regarding her volume status.
[2016-12-10] VITALS: BP 97/55
[2016-12-10] MEDS: IPRATROPIUM 0.5MG/ALBUTEROL 2.5MG INH SOL UD 3ML (DUONEB)(J7620) NEB SCH ×4 (02:02→20:00)
--- NOTE | 2016-12-10 03:51 | IPN ---
DATE OF SERVICE: 12/08/2016 NOTE: I was leaving the intensive care unit around 5 p.m. when one of the nurses asked me to assist with a patient on a different service who had become suddenly short of breath. The patient has a history of end-stage renal disease requiring dialysis, as well as a recent diagnosis of small cell lung cancer who was receiving her first dose of chemotherapy. She had almost completed the etoposide and was sitting in the chair when she suddenly became short of breath for which she was transferred to the bed and when I saw her she had gasping respirations. A stat chest x-ray had already been ordered and I had them immediately place her on bilevel therapy as we sorted this out. The chest x-ray did not show any evidence of significant pulmonary edema nor did she have any rales on examination. In fact, her examination showed her lung gilmore to be clear. An arterial blood gas was obtained, which was normal. I then asked the patient if she had felt like this before and she said no. The differential included pulmonary edema (she received a liter of fluids with her chemotherapy), allergic reaction to the etoposide (she had no other symptoms), pulmonary embolism, anxiety/panic attack or other. She did not have evidence of pulmonary edema. Her findings were not consistent with what you would usually see with an acute reaction to etoposide. If this were a pulmonary embolism large enough to cause that level of shortness of breath, you would expect to see some hemodynamic changes and in fact she was hypertensive and only mildly more tachycardic that she had been at baseline. Her son then pulled me aside and stated that she had indeed had experiences like this before that responded to Xanax. As there was no further role for the bilevel positive airway pressure (BiPAP), that was discontinued. The nurses advised her primary team of what had occurred. She was resting comfortably when I left. JAZMINED
[2016-12-10 04:00] VITALS: BP 96/54
[2016-12-10 04:29] LABS: MEAN CORPUSCULAR HEMOGLOBIN 30.2 pg (27.0-33.0); MEAN CORPUSCULAR HGB CONC 29.9 g/dl (32.0-36.5); MEAN CORPUSCULAR VOLUME 100.9 fl (80.0-96.0); RED CELL DISTRIBUTION WIDTH 17.8 % (11.5-14.5); WHITE BLOOD COUNT 9.9 K/mm3 (4.0-10.0)
[2016-12-10 04:50] LABS: ALBUMIN 2.5 GM/DL (3.2-5.2); CALCIUM LEVEL 9.6 MG/DL (8.8-10.2); CREATININE FOR GFR 4.38 MG/DL (0.55-1.02); GLOMERULAR FILTRATION RATE 10.3 (>32); PHOSPHORUS LEVEL 4.1 MG/DL (2.5-4.9)
[2016-12-10] MEDS: LEVOTHYROXINE 25MCG TABLET (0.025MG) PO SCH (05:59)
[2016-12-10] MEDS: HEPARIN SOD (PORCINE) 5000 UNITS/ML VIAL SQ SCH ×3 (05:59→20:35)
[2016-12-10 08:00] VITALS: BP 96/62
[2016-12-10] MEDS: DONEPEZIL 5 MG TAB PO SCH (08:28)
[2016-12-10] MEDS: ASPIRIN 81 MG ENTERIC TAB PO SCH (08:28)
[2016-12-10] MEDS: FAMOTIDINE 20 MG TAB PO SCH (08:28)
[2016-12-10] MEDS: (RENVELA) SEVELAMER **CARBONate** 800 MG TAB PO SCH ×3 (08:28→18:01)
[2016-12-10] MEDS: ALLOPURINOL 100 MG TAB PO SCH ×2 (08:29→20:29)
[2016-12-10] MEDS: glipiZIDE (GLUCOTROL) 5 MG TAB PO SCH (08:31)
[2016-12-10 12:00] VITALS: BP 92/57
[2016-12-10] MEDS: PANTOPRAZOLE 40MG TAB (PROTONIX) PO SCH (12:21)
[2016-12-10 16:00] VITALS: BP 104/56
--- NOTE | 2016-12-10 16:10 | IPN ---
DATE: SUBJECTIVE: The patient is seen and examined in the room today. The patient stated she has been feeling very fatigued. No other events are reported. The patient does not have recurrence of shortness of breath. On 12/08/2016, during chemotherapy, the patient had increased oxygen demand. Later improved and the patient does not require additional noninvasive positive pressure ventilation (NIPPV). OBJECTIVE: VITAL SIGNS: Temperature 99, pulse 80, respirations 18, blood pressure 96/62, pulse oximetry 92% with two liters nasal cannula. GENERAL: Fatigued. No sign of acute distress. Alert and oriented times three. HEENT: Normocephalic, atraumatic. Extraocular motor grossly intact. CARDIOVASCULAR: Positive S1, S2. Regular rate. LUNGS: Clear to auscultation bilaterally. ABDOMEN: Soft, nontender, nondistended. Bowel sounds present. No rebound or guarding. EXTREMITIES: Positive pitting edema bilaterally. Chronic lymphedema of the left upper extremity. No sign of cyanosis. LABORATORY DATA: WBC 9.9, hemoglobin 7.4, hematocrit 24.8, platelet count is 246. Sodium 135, potassium 5, chloride 101, carbon dioxide 27, BUN 55, creatinine 4.38, GFR is 10.3, fasting glucose 173, calcium 9.6, phosphorus 4.1, albumin 2.5. ASSESSMENT AND PLAN: 1. Small-cell lung cancer. The patient started her first dose of chemotherapy on 12/08/2016. The patient does not have any designated access for the chemotherapy. The patient will have a peripherally inserted central catheter (PICC) line on Sunday. We will refer the chemotherapy regimen to the oncologist, Dr. Wong. 2. Acute on chronic anemia. This morning, the patient has decreased hemoglobin and hematocrit, and the patient has become symptomatic. We will order one packed red blood cell transfusion. 3. Severe hypotension. Currently the patient's systolic blood pressure is usually maintained around 90-100. We will continue to monitor. 4. End-stage renal disease on hemodialysis. The patient has a temporary dialysis catheter of the right chest. The patient's dialysis days are Sunday, Sunday, and Sunday. 5. History of dementia. 6. Hypothyroidism on supplements. 7. Gastroesophageal reflux disease. 8. Diabetes. 9. Dyslipidemia. 10. History of elevated troponins. 11. Anxiety. 12. Deep venous thrombosis (DVT) prophylaxis on heparin.
[2016-12-10 20:00] VITALS: BP 97/48
[2016-12-10] MEDS: QUEtiapine FUMARATE 25 MG TAB PO SCH (20:29)
[2016-12-10] MEDS: ALPRAZolam 0.25 MG TAB PO PRN (20:33)
[2016-12-10] MEDS: PRAVASTATIN 10 MG TAB PO SCH (20:35)
--- NOTE | 2016-12-10 20:46 | IPN ---
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 She received her first cycle on 12/08/2016, reduced dose due to end-stage renal disease dialysis dependent. She is getting 50% of the dose. Overnight no acute events. She denies any nausea or vomiting. No lower extremity numbness or tingling. She is currently eating breakfast in bed with no new complaints. She is also scheduled to have a peripherally inserted central catheter (PICC) line placed tomorrow as an alternate access for chemotherapy infusion. OBJECTIVE: VITAL SIGNS: Temperature is 99, blood pressure is 96/62, heart rate 80. She is on 2 liters of oxygen via nasal cannula with oxygen saturation of 98%. HEENT: No pallor. Anicteric sclerae. Moist mucous membranes. HEART: Regular rate and rhythm. Normal S1, S2. LUNGS: Decreased breath sounds at the base, but no crackles, wheezing, or rales. ABDOMEN: Soft, nontender, nondistended. No hepatosplenomegaly or masses. EXTREMITIES: Left upper extremity lymphedema. LABORATORY DATA: Hemoglobin 7.4, white count 9,900, platelet count is 246,000. IMPRESSION AND RECOMMENDATION: 1. Chemotherapy tomorrow after dialysis, again at the reduced dose. Nephrology is on board. 2. Would recommend transfusion of two units of packed red cells during dialysis tomorrow morning prior to chemotherapy as well. Peripherally inserted central catheter (PICC) line will be placed for access tomorrow morning by registered nurse (RN).
--- NOTE | 2016-12-10 21:54 | IPN ---
DATE: 12/10/2016 SUBJECTIVE: The patient was seen and examined at the bedside today morning in the intensive care unit (ICU). She is awake and alert. She denies any active complaints at this time. REVIEW OF SYSTEMS: The patient denies any fevers, chills, rigors, headaches, nausea, vomiting or chest pain. She does report shortness of breath, but she is stable on nasal cannula. She denies any pain abdomen, constipation, or diarrhea. Rest of review of systems is negative. OBJECTIVE: VITAL SIGNS: Temperature is 98.1 degrees Fahrenheit. Blood pressure is 96/54, pulse is 79, respiratory rate of 22, saturating 95% on nasal cannula at two liters. INTAKE AND OUTPUT: Urine output is not recorded. Weight in the bed scale is 72.3 kg. PHYSICAL EXAMINATION: GENERAL: The patient is awake, alert oriented times three, lying in bed in no apparent distress. HEAD/NECK: Extraocular muscles intact. Pupils equal, round, and reactive to light. Mild facial puffiness. Neck is supple. Mildly elevated jugular venous distention (JVD). CARDIOVASCULAR: S1, S2. Regular rate. No murmur, rub, or gallop. RESPIRATORY: Decrease breath sounds at the bases. No rales or rhonchi. EXTREMITIES: The patient has lymphedema of the left upper extremity. Pulses are 2+. No cyanosis. There is no edema of the bilateral lower extremities. CENTRAL NERVOUS SYSTEM (VARNISH COOKER): No focal neurological deficit. Power is 5/5 in bilateral upper extremities. PSYCHIATRIC: Normal mood and affect. LABORATORY DATA: CBC showed WBC of 9.9, hemoglobin 7.4, platelets are 246. BMP showed sodium 135, potassium 5, chloride 101, bicarbonate 27, BUN 55, creatinine 4.3, calcium 9.6, phosphorus 4.1, albumin 2.5. CURRENT INPATIENT MEDICATIONS: The patient's medications were all reviewed by me. There is no change in the medication today as compared with yesterday. ASSESSMENT: An 81-year-old female with past medical history of end-stage renal disease on hemodialysis, initially admitted with symptomatic anemia, shortness of breath. Further workup showed the patient has small-cell cancer of the lung. PLAN: 1. End-stage renal disease on hemodialysis: The patient will be dialyzed according to her regular schedule tomorrow. No urgent need of hemodialysis today. The patient is hemodynamically stable and she is not hypoxemic at this time with nasal cannula. 2. Anemia in end-stage renal disease and recent chemotherapy: Her hemoglobin has dropped to 7.4 now. However, the patient will be given blood transfusion with hemodialysis tomorrow to prevent fluid overload. No urgent need of blood transfusion at this time. Continue current dose of Aranesp 100 mg IV with hemodialysis as well. 3. Small-cell cancer of the lung: The patient had her first session of chemotherapy on 12/08/2016. Next chemotherapy will be done tomorrow after hemodialysis. Continue allopurinol 200 mg by mouth twice a day. 4. Intravenous (IV) access. The patient does not have any IV access available except the right internal jugular (IJ) tunneled hemodialysis catheter. The patient will get peripherally inserted central catheter (PICC) line placement tomorrow by interventional radiology (IR) after hemodialysis. 5. Hyponatremia: Hyponatremia is secondary to slight hypervolemia and the patient is anuric. It is expected to improve with hemodialysis and ultrafiltration tomorrow. The plan of care was discussed with the patient's registered nurse (RN) at the bedside and with the hospitalist, Dr. Joana Cates.
[2016-12-11] VITALS (7 sets, daily range): BP systolic 82–109; BP diastolic 50–67
[2016-12-11] MEDS: IPRATROPIUM 0.5MG/ALBUTEROL 2.5MG INH SOL UD 3ML (DUONEB)(J7620) NEB SCH ×4 (01:17→19:34)
[2016-12-11] MEDS ORDERED: KETOROLAC 30 MG/ML VIAL (J1885) IV PRN (03:00)
[2016-12-11] MEDS ORDERED: KETOROLAC TROMETHAMINE 10 MG TAB PO PRN (03:15)
[2016-12-11] MEDS: LORazepam 1 MG TAB PO PRN (03:15)
[2016-12-11 04:26] LABS: MEAN CORPUSCULAR HEMOGLOBIN 30.5 pg (27.0-33.0); MEAN CORPUSCULAR HGB CONC 30.8 g/dl (32.0-36.5); MEAN CORPUSCULAR VOLUME 98.9 fl (80.0-96.0); RED CELL DISTRIBUTION WIDTH 17.8 % (11.5-14.5); WHITE BLOOD COUNT 7.2 K/mm3 (4.0-10.0)
[2016-12-11 04:46] LABS: ALBUMIN 2.6 GM/DL (3.2-5.2); CALCIUM LEVEL 9.4 MG/DL (8.8-10.2); CREATININE FOR GFR 5.5 MG/DL (0.55-1.02); GLOMERULAR FILTRATION RATE 7.9 (>32); PHOSPHORUS LEVEL 3.6 MG/DL (2.5-4.9)
[2016-12-11] MEDS: HEPARIN SOD (PORCINE) 5000 UNITS/ML VIAL SQ SCH ×3 (05:17→21:46)
[2016-12-11] MEDS: LEVOTHYROXINE 25MCG TABLET (0.025MG) PO SCH (05:17)
[2016-12-11] MEDS: (RENVELA) SEVELAMER **CARBONate** 800 MG TAB PO SCH ×4 (08:00→18:51)
[2016-12-11] MEDS: ASPIRIN 81 MG ENTERIC TAB PO SCH (10:30)
[2016-12-11] MEDS: PANTOPRAZOLE 40MG TAB (PROTONIX) PO SCH (10:30)
[2016-12-11] MEDS: ALLOPURINOL 100 MG TAB PO SCH ×2 (10:30→21:45)
[2016-12-11] MEDS: glipiZIDE (GLUCOTROL) 5 MG TAB PO SCH (10:31)
[2016-12-11] MEDS: FAMOTIDINE 20 MG TAB PO SCH (10:31)
[2016-12-11] MEDS: DONEPEZIL 5 MG TAB PO SCH (10:31)
--- NOTE | 2016-12-11 10:38 | REP ---
RIGHT PICC LINE PLACEMENT: Procedure was performed by ALLEN Tiwari under the direct supervision of Dr. Farrell. The procedure along with its risks, benefits and complications were discussed with the patient's son, her healthcare proxy. Informed consent was obtained verbally. The patient was identified and placed in a supine position. The right arm was prepped and draped in the usual sterile fashion. A procedural "time out" was performed in order to ensure the correct patient, procedure and site. Under ultrasound guidance the right basilic vein was punctured. A thin guidewire was introduced, the needle was removed and replaced with a Peel-Away sheath. Under fluoroscopic observation and via the Peel-Away sheath a 29 cm 5.5-Nepali double lumen PICC line was placed with the tip in the central subclavian vein. The catheter was flushed with heparinized saline and affixed to the patient's skin. The patient tolerated the procedure well. Reviewed by ALLEN Fung 12/11/2016 10:43 AEdited and Signed by Lloyd Farrell MD 12/11/2016 11:43 A
[2016-12-11] MEDS: CINACALCET 30 MG TAB (SENSIPAR) PO SCH (11:30)
[2016-12-11] MEDS ORDERED: ETOPOSIDE IV ONE (16:00)
[2016-12-11] MEDS ORDERED: NS IV ONE (16:00)
[2016-12-11] MEDS ORDERED: HEPARIN 1,000 UNITS/ML 10ML VIAL (FOR RADIOLOGY& DIALYSIS ONLY) XX ONE (16:45)
[2016-12-11] MEDS ORDERED: HEPARIN 1,000 UNITS/ML 10ML VIAL (FOR RADIOLOGY& DIALYSIS ONLY) IV ONE (16:45)
--- NOTE | 2016-12-11 16:49 | IPN ---
DATE: 12/11/2016 SUBJECTIVE: Barbra Goetz is an 81-year-old female with extended stage small cell carcinoma of the lungs. Currently receiving carboplatin, etoposide, reduced dose with end-stage renal disease, dialysis dependent. She is due for a second dose of carboplatin and etoposide today. She is currently lying in bed receiving dialysis. She is not distressed. No new complaints. No nausea or vomiting. She is also receiving transfusion of packed red cells. OBJECTIVE: VITAL SIGNS: Temperature is 98.2, pulse 83, blood pressure is 95/50, oxygen saturation is 99% on 2 liters nasal cannula. HEENT: No pallor or icteric sclerae. Oral mucosa is moist. HEART: Regular rate and rhythm. Normal S1, S2. LUNGS: Decreased breath sounds at the bases. ABDOMEN: Soft. No hepatosplenomegaly or masses. EXTREMITIES: Left upper extremity lymphedema. LABS: White count is 7200, hemoglobin is 7.4, platelet count of 271,000. 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 PLAN: Will go ahead with second dose of carboplatin and etoposide today. Dose reduced at renal dose of 50% of the dose. Transfusion of packed red cells is on the way. Continue supportive care.
--- NOTE | 2016-12-11 17:03 | IPN ---
DATE: 12/11/2016 SUBJECTIVE: The patient is seen and examined in the dialysis suite. Patient stated that she is feeling fine. She really wants to go home. She denies any acute complaints. OBJECTIVE: VITAL SIGNS: Temperature 98.2, pulse 83, respirations 18, blood pressure 95/50, pulse oximetry 99% on room air. GENERAL: Fatigued. No sign of acute distress. Alert and oriented times three. HEENT: Normocephalic, atraumatic. Extraocular motor grossly intact. CARDIOVASCULAR: Positive S1, S2. Regular rate. LUNGS: Positive crackle bilaterally. No wheezes appreciated. ABDOMEN: Soft, nontender, nondistended. Bowel sounds present. No rebound or guarding. EXTREMITIES: No lower extremity edema. No sign of cyanosis. Patient does have a new peripherally inserted central catheter (PICC) located left upper extremity. LABORATORY DATA: WBC 7.2, hemoglobin 7.4, hematocrit 24, platelet count is 271. Sodium 135, potassium 5, chloride 101, carbon dioxide 26, BUN 75, creatinine 5.5, GFR is 7.9, fasting glucose 100, calcium 9.4, phosphorus 3.6, albumin 2.6. ASSESSMENT AND PLAN: 1. 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 The patient received her first dose of chemotherapy on 12/08/2016. The patient has a schedule PICC line insertion this morning. After PICC line insertion, patient will have hemodialysis. After hemodialysis, patient is scheduled for the second dose of chemotherapy. Will refer the chemotherapy regimen to the oncologist, Dr. Wong. 2. Acute on chronic anemia. This morning, the patient has a hemoglobin of 7.4 and hematocrit of 24. I have discussed the situation with her grain drier. Patient will get a blood transfusion during hemodialysis. 3. Hypotension. Patient continues to have a very supple blood pressures. Per the dialysis staff, the patient has a fluctuation of the blood pressures but patient never has severe hypotension during dialysis. 4. End-stage renal disease on hemodialysis. The patient has a temporary dialysis catheter of the right chest. The patient's dialysis days are Sunday, Sunday, and Sunday. Patient is getting dialyzed today. 5. History of dementia. 6. Hypothyroidism on supplements. 7. Gastroesophageal reflux disease. 8. Diabetes on a sliding scale and consistent carbohydrate diet. 9. History of elevated troponins. 10. Anxiety. 11. Deep venous thrombosis (DVT) prophylaxis on heparin.
[2016-12-11] MEDS: QUEtiapine FUMARATE 25 MG TAB PO SCH (21:45)
[2016-12-11] MEDS: PRAVASTATIN 10 MG TAB PO SCH (21:45)
[2016-12-12] VITALS: BP 113/60
[2016-12-12] MEDS: IPRATROPIUM 0.5MG/ALBUTEROL 2.5MG INH SOL UD 3ML (DUONEB)(J7620) NEB SCH ×4 (02:22→19:51)
[2016-12-12] MEDS: ALPRAZolam 0.25 MG TAB PO PRN ×2 (03:37→20:17)
[2016-12-12 04:00] VITALS: BP 92/58
--- NOTE | 2016-12-12 05:54 | IPN ---
DATE: 12/11/2016 SUBJECTIVE: Patient was seen and examined at the bedside today morning in the intensive care unit (ICU). Patient just came back after getting right upper arm PICC line placement for chemotherapy. She denies any acute complaints. Patient is due for hemodialysis today. REVIEW OF SYSTEMS: Patient denies any fever, chills, rigors, headache, nausea, vomiting or chest pain. She does report shortness of breath and weakness. Patient denies any pain in abdomen, constipation or diarrhea. Rest of review of system is negative. OBJECTIVE: Vital signs: Temperature is 98.2 degrees Fahrenheit, blood pressure is 109/60, pulse is 88, respiratory rate of 18, saturating 100% on nasal cannula at 2 liters. Intake and output: Urine output is not recorded. Last weight on the bed scale was 72.3 kg yesterday. PHYSICAL EXAMINATION: General: Patient is awake, alert, oriented times three, lying in bed. No apparent distress. Head and neck exam: Extraocular muscles intact. Pupils equally round and reactive to light. Mild facial puffiness. Mildly elevated jugular venous distention (JVD). Neck is supple. Cardiovascular: S1, S2. Regular rate. No murmur, rub or gallop. Respiratory: Decreased breath sounds at the bases. Otherwise no rales or rhonchi. Musculoskeletal: Patient has lymphedema of the left upper extremities. Pulses are 2+. There is no cyanosis and she has no edema of the bilateral lower extremities. Central nervous system: No focal neurological deficit. Power is 5/5 in bilateral upper extremities. Psych: Normal mood and affect. LAB REVIEW: CBC showed a WBC of 7.2, hemoglobin 7.4, platelets 271. BMP today showed sodium 135, potassium is 5, chloride 101, bicarbonate 26, BUN 75, creatinine 5.5. Albumin is 2.6. CURRENT INPATIENT MEDICATIONS: Patient's medications are all reviewed by me. Patient is going to get another dose of Etoposide today along with Decadron according to the chemo protocol. There is no other change in the medications today as compared with yesterday. ASSESSMENT: 81-year-old female with history of end stage renal disease on hemodialysis recently diagnosed with small cell cancer of the lung during this admission. PLAN: 1. End stage renal disease on hemodialysis. Patient will be dialyzed today shortly in the afternoon according to a schedule which will try to remove 1 liter of fluid as tolerated by her blood pressure. 2. Anemia and end stage renal disease and recently on chemotherapy. Patient's hemoglobin has dropped below 8. She will get 1 unit of packed red blood cells transfusion with hemodialysis today. 3. Small cell cancer of the lung. Patient is being seen by oncology. She will get another round of chemotherapy after hemodialysis today. That it the management as per oncology recommendation. 4. IV access. Patient got a right upper arm PICC line for chemotherapy and IV medications.
[2016-12-12] MEDS: LEVOTHYROXINE 25MCG TABLET (0.025MG) PO SCH (05:58)
[2016-12-12 05:59] LABS: MEAN CORPUSCULAR HEMOGLOBIN 31.9 pg (27.0-33.0); MEAN CORPUSCULAR HGB CONC 32.2 g/dl (32.0-36.5); MEAN CORPUSCULAR VOLUME 98.9 fl (80.0-96.0); RED CELL DISTRIBUTION WIDTH 17.5 % (11.5-14.5)
[2016-12-12] MEDS: SODIUM CHLORIDE 0.9% INJ 10 ML SYR IV SCH ×2 (05:59→17:45)
[2016-12-12] MEDS: HEPARIN SOD (PORCINE) 5000 UNITS/ML VIAL SQ SCH ×3 (05:59→20:17)
[2016-12-12 06:17] LABS: ALBUMIN 2.9 GM/DL (3.2-5.2); CALCIUM LEVEL 8.8 MG/DL (8.8-10.2); CREATININE FOR GFR 3.47 MG/DL (0.55-1.02); GLOMERULAR FILTRATION RATE 13.4 (>32); PHOSPHORUS LEVEL 3.4 MG/DL (2.5-4.9); POTASSIUM SERUM 5.1 MEQ/L (3.5-5.1)
[2016-12-12 08:00] VITALS: BP 117/79
[2016-12-12] MEDS: (RENVELA) SEVELAMER **CARBONate** 800 MG TAB PO SCH ×3 (09:00→17:45)
[2016-12-12] MEDS: glipiZIDE (GLUCOTROL) 5 MG TAB PO SCH (09:00)
[2016-12-12] MEDS: PANTOPRAZOLE 40MG TAB (PROTONIX) PO SCH (09:00)
[2016-12-12] MEDS: DONEPEZIL 5 MG TAB PO SCH (09:01)
[2016-12-12] MEDS: ASPIRIN 81 MG ENTERIC TAB PO SCH (09:01)
[2016-12-12] MEDS: ALLOPURINOL 100 MG TAB PO SCH ×2 (09:01→20:19)
[2016-12-12] MEDS: FAMOTIDINE 20 MG TAB PO SCH (09:01)
[2016-12-12 13:33] VITALS: O2SAT 85
--- NOTE | 2016-12-12 13:52 | IPNPDOC ---
Subjective Date Seen The patient was seen on 12/12/16. Subjective Chief Complaint/HPI The patient is a 81-year-old female admitted with a reason for visit of Fluid Overload And Symptomatic Anemia. General: Denies: Chills, Night Sweats Constitutional: Denies: Chills, Fever Eyes: Denies: Pain, Vision change ENT: Denies: Head Aches, Ear Pain Skin: Denies: Rash, Lesions Pulmonary: Denies: Dyspnea, Cough Cardiovascular: Denies: Chest Pain, Palpitations Gastrointestinal: Denies: Nausea, Vomiting Genitourinary: Denies: Dysuria Hematologic: Denies: Bruising, Bleeding Excessively Objective Physical Examination General Exam: Positive: Alert, Cooperative, No Acute Distress ENT Exam: Positive: Atraumatic, Mucous membr. 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 CT Chest noted, large Mediastinal Mass 7.5 x 7.5 cm concerning for possible malignancy MRI Brain and CT Abd/Pel with no evidence of metastasis Pulmonary consult appreciated--s/p Biopsy on 11/28 Biopsy results notable for Small Cell Ca Oncology on board s/p chemotherapy x 2 doses thus far ESRD on HD Receives HD on , W, F Appreciate Nephrology's assistance with this Symptomatic Anemia likely 2/2 underlying ESRD and Chemotherapy s/p transfusion of 3 Units since admission No overt bleeding noted We will cont to monitor Hgb levels Elevated Troponins likely 2/2 Demand Ischemia from Symptomatic Anemia EKG with no acute ST-T changes Peak Troponin of 0.20 on 11/28/16 Patient w/o any complaints of chest pain at this time 2D ECHO notable for preserved EF, severe MR, elevated Right Ventricle Pressure ( likely 2/2 mediastinal mass) We will cont to monitor the patient Hypertension, stable Continue lisinopril, Coreg, isosorbide mononitrate Dyslipidemia Continue statin Diabetes mellitus Continue insulin sliding scale GERD Continue PPI Hypothyroidism Continue Synthroid Dementia Continue donepezil Depression Continue cervical History of breast cancer with left mastectomy DVT prophylaxis Heparin SC Dispo--the patient is awaiting placement in [facility] according to PT recommendations. The family is aware of this and PFS is working closing with them to establish a facility. We will cont to monitor the patient in the mean time as she continues to receive inpatient chemotherapy and hemodialysis for her ESRD. Patient to be downgraded to the med/surg floor today. VS, I&O, 24H, Fishbone Vital Signs/I&O Vital Signs Date Time Temp Pulse Resp B/P (MAP) Pulse Ox O2 Delivery O2 Flow Rate FiO2 12/12/16 12:00 Room Air 12/12/16 10:30 93 18 100 12/12/16 08:00 2.0 12/12/16 08:00 98.1 117/79 (92) 12/08/16 17:00 30 I&O- Last 24 Hours up to 6 AM 12/12/16 06:00 Intake Total 635 ml Output Total 810 ml Balance -175 ml Laboratory Data 24H LABS Laboratory Tests 2 12/12/16 05:45: Blood Urea Nitrogen 36#H, Creatinine 3.47H, Sodium Level 138, Potassium Level 5.1, Chloride Level 102, Carbon Dioxide Level 27, Anion Gap 9, Glomerular Filtration Rate 13.4L, Calcium Level 8.8, Phosphorus Level 3.4, Albumin 2.9L CBC/BMP Laboratory Tests 12/12/16 05:45 Red Blood Count 2.77 L, Mean Corpuscular Volume 98.9 H, Mean Corpuscular Hemoglobin 31.9, Mean Corpuscular Hemoglobin Concent 32.2, Red Cell Distribution Width 17.5 H, Anion Gap 9 Microbiology Microbiology 12/08/16 Stool Occult Blood (KILO) - Final, Complete MISSY HARRIS MD Dec 12, 2016 13:52
[2016-12-12 14:10] VITALS: BP 121/59
--- NOTE | 2016-12-12 19:40 | IPN ---
DATE: 12/12/2016 SUBJECTIVE: The patient was seen and examined at the bedside today morning in the intensive care unit (ICU). The patient is sitting on the sofa. She does not have any active complaints. The patient tolerated hemodialysis procedure well yesterday. She was also given chemotherapy yesterday. The patient reports that she tolerated the chemotherapy well. REVIEW OF SYSTEMS: The patient denies any fevers, chills, rigors, headache, nausea, vomiting or chest pain. She reports mild shortness of breath and she has to sit up for that. She reports orthopnea. She denies any pain in the abdomen, constipation or diarrhea. The rest of the review of systems is negative. OBJECTIVE: VITAL SIGNS: Temperature is 98.1 degrees Fahrenheit, blood pressure is 117/79, pulse is 97, respiratory rate of 18, saturating 95% on room air. Intake and output: Urine output is not recorded. Ultrafiltration with hemodialysis was 800 mL yesterday, weight in the bed scale is 71.5 kg. PHYSICAL EXAMINATION: GENERAL: The patient is awake, alert and oriented times three, sitting on the sofa in no apparent distress. HEAD AND NECK EXAM: Extraocular muscles intact. Pupils equally round and reactive to light. Positive facial puffiness. Neck is supple. Mildly elevated jugular venous distension (JVD) and engorged neck veins. CARDIOVASCULAR: S1, S2 regular rate. No murmur, rub or gallop. RESPIRATORY: Decreased breath sounds at the bases, otherwise no rales or rhonchi. MUSCULOSKELETAL: The patient has lymphedema of the upper extremities. Pulses are 2+. There is no cyanosis of the extremities. CENTRAL NERVOUS SYSTEM: No focal neurological deficits. Power is 5/5 in all extremities. PSYCHIATRIC: Normal mood and affect. IV ACCESS: The patient has a right IJ tunnel hemodialysis catheter. LABORATORY REVIEW: Complete blood count (CBC) showed a white blood count (WBC) 6.0, hemoglobin is 8.8, platelets are 241. Basic metabolic panel (BMP) shows sodium 138, potassium 5.1, chloride 102, bicarbonate 27, BUN 36, creatine is 3.4. CURRENT ADMISSION MEDICATIONS: The patient's medications are all reviewed by me. There is no change in the medications today as compared with yesterday except that the patient got second round of chemotherapy yesterday in the evening. ASSESSMENT: 81-year-old female with history of end-stage renal disease on hemodialysis recently diagnosed with small cell cancer of the lung during this admission. PLAN: 1. End-stage renal disease on hemodialysis. The patient was dialyzed yesterday according to her schedule. No urgent need of hemodialysis today. 2. Anemia and end-stage renal disease. The patient got one unit of packed red blood cell transfusion yesterday with hemodialysis. Hemoglobin is 8.8. Continue to monitor. Continue current dose of Aranesp 300 mcg IV with hemodialysis as well. 3. Small cell cancer of the lung. The patient is being followed by oncology. She got second round of chemotherapy after hemodialysis yesterday.
[2016-12-12] MEDS: PRAVASTATIN 10 MG TAB PO SCH (20:17)
[2016-12-12] MEDS: QUEtiapine FUMARATE 25 MG TAB PO SCH (20:17)
--- NOTE | 2016-12-12 20:38 | IPN ---
DATE: 12/12/2016 SUBJECTIVE: Barbra Goetz is an 81-year-old female with extended stage small cell lung carcinoma with a large mediastinal mass. Currently, she is on carboplatin, etoposide , reduced dose in the setting of end-stage renal disease, dialysis dependent. She is currently with no new complaints. No numbness or tingling in extremities. No shortness of breath. No chest pain or cough. OBJECTIVE: VITALS: Pulse is 93, respiratory rate is 18, oxygen saturation is 100% on room air. In general, she is comfortable. She is sitting in a chair in no acute distress. HEENT: No pallor or icteric sclerae. Moist mucous membranes HEART: Regular rate and rhythm. LUNGS: Clear bilaterally. ABDOMEN: Soft. No hepatosplenomegaly or masses. EXTREMITIES: Left arm lymphedema. Right arm with a percutaneous indwelling central catheter (PICC) line in place. LABORATORY: Complete blood count (CBC) with hemoglobin of 8.8, platelets of 241,000, white count 6,000. IMPRESSION: 81-year-old female with extended stage small cell lung carcinoma treated with carboplatin, etoposide. Next dose planned for 12/13/2016. PLAN: Continue chemotherapy, dosages at 50%. Chemotherapy will be given right after dialysis as recommended. Continue to monitor her blood counts.
[2016-12-12 22:00] VITALS: BP 121/56
[2016-12-13 02:00] VITALS: BP 109/69
[2016-12-13] MEDS: IPRATROPIUM 0.5MG/ALBUTEROL 2.5MG INH SOL UD 3ML (DUONEB)(J7620) NEB SCH ×4 (02:00→19:21)
[2016-12-13 06:00] VITALS: BP 134/65
[2016-12-13] MEDS: LEVOTHYROXINE 25MCG TABLET (0.025MG) PO SCH ×2 (06:02→06:30)
[2016-12-13] MEDS: SODIUM CHLORIDE 0.9% INJ 10 ML SYR IV SCH ×2 (06:28→17:31)
[2016-12-13] MEDS: HEPARIN SOD (PORCINE) 5000 UNITS/ML VIAL SQ SCH ×3 (06:29→21:04)
[2016-12-13] MEDS: PANTOPRAZOLE 40MG TAB (PROTONIX) PO SCH (06:29)
[2016-12-13] MEDS: ALLOPURINOL 100 MG TAB PO SCH ×2 (06:29→21:04)
[2016-12-13] MEDS: ASPIRIN 81 MG ENTERIC TAB PO SCH (06:29)
[2016-12-13] MEDS: (RENVELA) SEVELAMER **CARBONate** 800 MG TAB PO SCH ×3 (06:29→17:30)
[2016-12-13] MEDS: DONEPEZIL 5 MG TAB PO SCH (06:30)
[2016-12-13] MEDS: glipiZIDE (GLUCOTROL) 5 MG TAB PO SCH (06:30)
[2016-12-13] MEDS: FAMOTIDINE 20 MG TAB PO SCH (06:30)
[2016-12-13] MEDS ORDERED: HEPARIN 1,000 UNITS/ML 10ML VIAL (FOR RADIOLOGY& DIALYSIS ONLY) IV ONE (10:45)
[2016-12-13] MEDS ORDERED: HEPARIN 1,000 UNITS/ML 10ML VIAL (FOR RADIOLOGY& DIALYSIS ONLY) XX ONE (10:45)
[2016-12-13 11:09] LABS: MEAN CORPUSCULAR HEMOGLOBIN 30.4 pg (27.0-33.0); MEAN CORPUSCULAR HGB CONC 31.1 g/dl (32.0-36.5); MEAN CORPUSCULAR VOLUME 97.7 fl (80.0-96.0); RED CELL DISTRIBUTION WIDTH 17.1 % (11.5-14.5); WHITE BLOOD COUNT 6.5 K/mm3 (4.0-10.0)
[2016-12-13 11:35] LABS: ALBUMIN 2.8 GM/DL (3.2-5.2); CALCIUM LEVEL 9.5 MG/DL (8.8-10.2); CREATININE FOR GFR 4.66 MG/DL (0.55-1.02); GLOMERULAR FILTRATION RATE 9.5 (>32); PHOSPHORUS LEVEL 3.3 MG/DL (2.5-4.9); POTASSIUM SERUM 4.5 MEQ/L (3.5-5.1)
--- NOTE | 2016-12-13 11:55 | IPNPDOC ---
Subjective Date Seen The patient was seen on 12/13/16. Subjective Chief Complaint/HPI Patient seen and examined at the bedside today. Offers no acute complaints at this time. Objective Physical Examination General Exam: Positive: Alert, Cooperative, No Acute Distress ENT Exam: Positive: Atraumatic, Mucous membr. 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 CT Chest noted, large Mediastinal Mass 7.5 x 7.5 cm concerning for possible malignancy MRI Brain and CT Abd/Pel with no evidence of metastasis Pulmonary consult appreciated--s/p Biopsy on 11/28 Biopsy results notable for Small Cell Ca Oncology on board s/p chemotherapy x 2 doses thus far Scheduled for another dose of chemotherapy today We will follow up with oncology in regards to how many total doses of inpatient chemotherapy the patient will need, in an effort to better understand when the patient will be eligible for placement, as the patient cannot be placed and receive chemotherapy concomitantly ESRD on HD Receives HD on M, W, F Appreciate Nephrology's assistance with this Symptomatic Anemia likely 2/2 underlying ESRD and Chemotherapy s/p transfusion of 3 Units since admission No overt bleeding noted We will cont to monitor Hgb levels Elevated Troponins likely 2/2 Demand Ischemia from Symptomatic Anemia EKG with no acute ST-T changes Peak Troponin of 0.20 on 11/28/16 Patient w/o any complaints of chest pain at this time 2D ECHO notable for preserved EF, severe MR, elevated Right Ventricle Pressure ( likely 2/2 mediastinal mass) We will cont to monitor the patient Hypertension, stable Continue lisinopril, Coreg, isosorbide mononitrate Dyslipidemia Continue statin Diabetes mellitus Continue insulin sliding scale GERD Continue PPI Hypothyroidism Continue Synthroid Dementia Continue donepezil Depression Continue cervical History of breast cancer with left mastectomy DVT prophylaxis Heparin SC Dispo--the patient is awaiting placement in [facility] according to PT recommendations. The family is aware of this and PFS is working closing with them to establish a facility. We will cont to monitor the patient in the mean time as she continues to receive inpatient chemotherapy and hemodialysis for her ESRD. We will follow up with oncology in regards to how many total doses of inpatient chemotherapy the patient will need, in an effort to better understand when the patient will be eligible for placement, as the patient cannot be placed and receive chemotherapy concomitantly VS, I&O, 24H, Fishbone Vital Signs/I&O Vital Signs Date Time Temp Pulse Resp B/P (MAP) Pulse Ox O2 Delivery O2 Flow Rate FiO2 12/13/16 07:25 Room Air 12/13/16 06:00 96.1 84 18 134/65 (88) 92 12/12/16 08:00 2.0 12/08/16 17:00 30 I&O- Last 24 Hours up to 6 AM 12/13/16 06:00 Intake Total 560 ml Balance 560 ml Laboratory Data 24H LABS Laboratory Tests 2 12/13/16 09:10: Blood Urea Nitrogen 61#H, Creatinine 4.66H, Sodium Level 138, Potassium Level 4.5, Chloride Level 102, Carbon Dioxide Level 27, Anion Gap 9, Glomerular Filtration Rate 9.5L, Calcium Level 9.5, Phosphorus Level 3.3, Albumin 2.8L CBC/BMP Laboratory Tests 12/13/16 09:10 Red Blood Count 2.80 L, Mean Corpuscular Volume 97.7 H, Mean Corpuscular Hemoglobin 30.4, Mean Corpuscular Hemoglobin Concent 31.1 L, Red Cell Distribution Width 17.1 H, Anion Gap 9 Microbiology Microbiology 12/08/16 Stool Occult Blood (KILO) - Final, Complete MISSY HARRIS MD Dec 13, 2016 11:55
[2016-12-13] MEDS ORDERED: ETOPOSIDE IV ONE (13:00)
[2016-12-13] MEDS ORDERED: NS IV ONE (13:00)
[2016-12-13 14:00] VITALS: BP 129/66
--- NOTE | 2016-12-13 15:47 | IPN ---
DATE: 12/13/2016 Mrs. Goetz is seen this morning during hemodialysis on her bedside. She is being dialyzed in recliner chair today. She is feeling better and denies any dyspnea, chest pain, nausea or vomiting. She is not using any oxygen. She has been receiving chemotherapy for small cell lung cancer and has been tolerating it well. PHYSICAL EXAMINATION: Temperature 96.1 degrees Fahrenheit, heart rate 84 per minute and respiratory rate 18 per minute. Blood pressure 134/65 mmHg and oxygen saturation 92% on room air. Head: Is atraumatic. Neck is supple and without jugular venous distention (JVD) or thyroid enlargement. Dialysis catheter is intact in right internal jugular vein. There is no oral thrush or ulcers. Pupils are equal and reactive to light and sclera is anicteric. Heart: Sounds are regular and lungs clear to auscultation. Abdomen: Soft and nontender and without a palpable organomegaly. Bowel sounds are normal. Extremities: Have 1+ leg edema. She has no cyanosis or clubbing. Left arm has lymphatic edema which is unchanged. Neurologically, she is awake, alert and oriented times three. She is at about her baseline mentation. Today's labs were drawn during dialysis and results are still pending. Yesterday's labs are reviewed. Sodium was 138 and potassium 5.1. BUN was 36 and creatinine 3.47. Albumin 2.9. Hemoglobin was 8.8 and hematocrit 27.4. PROBLEMS: 1. End-stage renal disease. The patient is being dialyzed today. She is tolerating her dialysis treatment very well. She will continue with her Sunday, Sunday and Sunday schedule for dialysis. 2. Anemia. Her anemia improved and she will be given Aranesp 300 mcg today. She has required transfusions. CBC from today is pending. 3. Chronic dyspnea with history of congestive heart failure. Her volume status is slightly decompensated. We are trying to remove about 2.5 liters of fluid today, which she is tolerating well. 4. Small cell lung cancer. The patient has been receiving chemotherapy. She will continue with current regimen of chemotherapy after dialysis. 5. Generalized weakness and deconditioning. The patient has been very weak and is not able to be discharged to home. She is likely to be [facility] in [facility].
[2016-12-13] MEDS: QUEtiapine FUMARATE 25 MG TAB PO SCH (21:04)
[2016-12-13] MEDS: PRAVASTATIN 10 MG TAB PO SCH (21:04)
[2016-12-13 22:00] VITALS: BP 124/68
[2016-12-13] MEDS: ALPRAZolam 0.25 MG TAB PO PRN (22:34)
[2016-12-14 02:00] VITALS: BP 124/62
[2016-12-14] MEDS: IPRATROPIUM 0.5MG/ALBUTEROL 2.5MG INH SOL UD 3ML (DUONEB)(J7620) NEB SCH ×4 (02:00→19:43)
[2016-12-14 06:00] VITALS: BP 130/54
[2016-12-14] MEDS: SODIUM CHLORIDE 0.9% INJ 10 ML SYR IV SCH ×2 (06:00→18:22)
[2016-12-14] MEDS: LEVOTHYROXINE 25MCG TABLET (0.025MG) PO SCH (06:00)
[2016-12-14] MEDS: HEPARIN SOD (PORCINE) 5000 UNITS/ML VIAL SQ SCH ×3 (06:01→22:21)
[2016-12-14 08:18] LABS: MEAN CORPUSCULAR HEMOGLOBIN 30.1 pg (27.0-33.0); MEAN CORPUSCULAR HGB CONC 31.2 g/dl (32.0-36.5); MEAN CORPUSCULAR VOLUME 96.5 fl (80.0-96.0); RED CELL DISTRIBUTION WIDTH 17.1 % (11.5-14.5); WHITE BLOOD COUNT 6.7 K/mm3 (4.0-10.0)
[2016-12-14 08:31] LABS: CALCIUM LEVEL 9.8 MG/DL (8.8-10.2); CREATININE FOR GFR 3.43 MG/DL (0.55-1.02); GLOMERULAR FILTRATION RATE 13.6 (>32); POTASSIUM SERUM 4.4 MEQ/L (3.5-5.1)
[2016-12-14] MEDS: ALLOPURINOL 100 MG TAB PO SCH ×2 (08:52→22:21)
[2016-12-14] MEDS: ASPIRIN 81 MG ENTERIC TAB PO SCH (08:52)
[2016-12-14] MEDS: (RENVELA) SEVELAMER **CARBONate** 800 MG TAB PO SCH ×3 (08:52→18:22)
[2016-12-14] MEDS: PANTOPRAZOLE 40MG TAB (PROTONIX) PO SCH (08:52)
[2016-12-14] MEDS: FAMOTIDINE 20 MG TAB PO SCH (08:52)
[2016-12-14] MEDS: glipiZIDE (GLUCOTROL) 5 MG TAB PO SCH (08:52)
[2016-12-14] MEDS: DONEPEZIL 5 MG TAB PO SCH (08:53)
--- NOTE | 2016-12-14 10:53 | IPN ---
DATE: 12/13/2016 SUBJECTIVE: Barbra Goetz is receiving carboplatin and etoposide for extensive staged small cell carcinoma with a right hilar mass in the setting of end stage renal disease, dialysis dependent. She completed dialysis this morning and was subsequently treated with carboplatin and etoposide. She denies any nausea, vomiting, numbness or tingling in the extremities. She is comfortable at bedside. OBJECTIVE: VITAL SIGNS: Pulse is 82, blood pressure 129/66, pulse oximetry of 93% on room air. Elderly female. She is comfortable. She is not in distress. HEENT: Anicteric sclera. Mucosa is moist. Oropharynx is clear. LUNGS: Clear bilaterally. ABDOMEN: Soft. No hepatosplenomegaly. HEART: Regular rate and rhythm. EXTREMITIES: Left upper extremity lymphadenopathy. IMPRESSION AND RECOMMENDATIONS: 81-year-old female with extensive stage small cell lung carcinoma with a large right hilar mass, being treated palliatively with carboplatin and etoposide, dosages are 50% because of end stage renal disease, dialysis dependent. We will monitor her counts for kerri. If she is discharged within a week, she will followup as an outpatient for cycle number two of chemotherapy. We will discuss with the hospitalist on board, Dr. Nguyen, regarding disposition. MTDD
[2016-12-14 14:00] VITALS: BP 127/59
--- NOTE | 2016-12-14 15:03 | IPNPDOC ---
Subjective Date Seen The patient was seen on 12/14/16. Subjective Chief Complaint/HPI Patient seen and examined at the bedside this morning. States that she is feeling well and tolerated dialysis and chemotherapy well yesterday. Denies any acute complaints at this time. Objective Physical Examination General Exam: Positive: Alert, Cooperative, No Acute Distress ENT Exam: Positive: Atraumatic, Mucous membr. 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 CT Chest noted, large Mediastinal Mass 7.5 x 7.5 cm concerning for possible malignancy MRI Brain and CT Abd/Pel with no evidence of metastasis Pulmonary consult appreciated--s/p Biopsy on 11/28 Biopsy results notable for Small Cell Ca Oncology on board s/p chemotherapy x 3 doses--further chemotherapy to be continued in the following week(s) as per Oncology PFS on board for placement ESRD on HD Receives HD on M, W, F Appreciate Nephrology's assistance with this Symptomatic Anemia likely 2/2 underlying ESRD and Chemotherapy s/p transfusion of 3 Units since admission No overt bleeding noted We will cont to monitor Hgb levels Elevated Troponins likely 2/2 Demand Ischemia from Symptomatic Anemia EKG with no acute ST-T changes Peak Troponin of 0.20 on 11/28/16 Patient w/o any complaints of chest pain at this time 2D ECHO notable for preserved EF, severe MR, elevated Right Ventricle Pressure ( likely 2/2 mediastinal mass) We will cont to monitor the patient Hypertension, stable Continue lisinopril, Coreg, isosorbide mononitrate Dyslipidemia Continue statin Diabetes mellitus Continue insulin sliding scale GERD Continue PPI Hypothyroidism Continue Synthroid Dementia Continue donepezil Depression Continue cervical History of breast cancer with left mastectomy DVT prophylaxis Heparin SC Dispo--PFS on board to facilitate placement in [facility] in the [place], [place] area. We will follow up with their progress. VS, I&O, 24H, Fishbone Vital Signs/I&O Vital Signs Date Time Temp Pulse Resp B/P (MAP) Pulse Ox O2 Delivery O2 Flow Rate FiO2 12/14/16 07:30 Room Air 0.0 12/14/16 06:00 97.4 85 18 130/54 (79) 91 12/08/16 17:00 30 I&O- Last 24 Hours up to 6 AM 12/14/16 06:00 Intake Total 996 ml Balance 996 ml Laboratory Data 24H LABS Laboratory Tests 2 12/14/16 07:54: Anion Gap 8, Glomerular Filtration Rate 13.6L, Blood Urea Nitrogen 44H, Creatinine 3.43H, Sodium Level 136, Potassium Level 4.4, Chloride Level 101, Carbon Dioxide Level 27, Calcium Level 9.8 CBC/BMP Laboratory Tests 12/14/16 07:54 Red Blood Count 2.86 L, Mean Corpuscular Volume 96.5 H, Mean Corpuscular Hemoglobin 30.1, Mean Corpuscular Hemoglobin Concent 31.2 L, Red Cell Distribution Width 17.1 H, Calcium Level 9.8 Microbiology Microbiology 12/08/16 Stool Occult Blood (KILO) - Final, Complete MISSY HARRIS MD Dec 14, 2016 15:03
--- NOTE | 2016-12-14 21:27 | IPN ---
DATE: 12/14/2016 Mrs. Goetz is seen this morning on her bedside. She is sitting in the chair. She is feeling well and denies any nausea, vomiting, dyspnea or chest pain. She did receive her chemotherapy after hemodialysis yesterday and has been tolerating it well. PHYSICAL EXAMINATION: Temperature 97.4 degrees Fahrenheit, heart rate 85 per minute and respiratory rate 18 per minute. Blood pressure 130/54 mmHg and oxygen saturation 91% on room air. Head is atraumatic. Neck is supple and without JVD or thyroid enlargement. She has no oral thrush or ulcers. Ears, nose and throat are unremarkable. Pupils reactive to light and sclerae is anicteric. Heart sounds are regular and lungs clear to auscultation. Abdomen soft, nontender and bowel sounds are normal. Extremities have no cyanosis or clubbing. Left arm lymphedema is unchanged. Today's labs show WBC count 6.7, hemoglobin 8.6 and hematocrit 27.6. Sodium 136 and potassium 4.4. BUN 44 and creatinine 3.43. PROBLEMS: 1. End-stage renal disease. The patient undergoes hemodialysis on Sunday, Sunday and Sunday schedule. She was dialyzed yesterday and next dialysis will be scheduled for tomorrow. 2. Anemia. Her anemia is chronic and related to end-stage renal disease and lung cancer. At present her anemia is stable. She will continue to receive Aranesp 300 mcg once a week during dialysis. 3. Small-cell lung cancer. The patient is currently receiving chemotherapy after each hemodialysis. So far she has tolerated it well. 4. Generalized weakness and deconditioning. No significant change in her overall condition. She wants to go home. At this point she is waiting for jail bed.
[2016-12-14 22:00] VITALS: BP 140/62
[2016-12-14] MEDS: QUEtiapine FUMARATE 25 MG TAB PO SCH (22:21)
[2016-12-14] MEDS: PRAVASTATIN 10 MG TAB PO SCH (22:21)
[2016-12-14] MEDS: ALPRAZolam 0.25 MG TAB PO PRN (22:37)
[2016-12-15] MEDS: IPRATROPIUM 0.5MG/ALBUTEROL 2.5MG INH SOL UD 3ML (DUONEB)(J7620) NEB SCH ×4 (02:00→19:58)
[2016-12-15 06:00] VITALS: BP 138/54
[2016-12-15] MEDS: SODIUM CHLORIDE 0.9% INJ 10 ML SYR IV SCH ×2 (06:33→18:13)
[2016-12-15] MEDS: HEPARIN SOD (PORCINE) 5000 UNITS/ML VIAL SQ SCH ×3 (06:33→20:39)
[2016-12-15] MEDS: CINACALCET 30 MG TAB (SENSIPAR) PO SCH (06:34)
[2016-12-15] MEDS: ALLOPURINOL 100 MG TAB PO SCH ×2 (06:34→20:37)
[2016-12-15] MEDS: LEVOTHYROXINE 25MCG TABLET (0.025MG) PO SCH (06:34)
[2016-12-15] MEDS: (RENVELA) SEVELAMER **CARBONate** 800 MG TAB PO SCH ×3 (06:34→18:11)
[2016-12-15] MEDS: ASPIRIN 81 MG ENTERIC TAB PO SCH (06:34)
[2016-12-15] MEDS: PANTOPRAZOLE 40MG TAB (PROTONIX) PO SCH (06:34)
[2016-12-15] MEDS: glipiZIDE (GLUCOTROL) 5 MG TAB PO SCH (06:35)
[2016-12-15] MEDS: DONEPEZIL 5 MG TAB PO SCH (06:35)
[2016-12-15] MEDS: FAMOTIDINE 20 MG TAB PO SCH (06:35)
[2016-12-15 09:49] LABS: MEAN CORPUSCULAR HEMOGLOBIN 30.9 pg (27.0-33.0); MEAN CORPUSCULAR HGB CONC 31.9 g/dl (32.0-36.5); MEAN CORPUSCULAR VOLUME 96.7 fl (80.0-96.0); RED CELL DISTRIBUTION WIDTH 16.9 % (11.5-14.5); WHITE BLOOD COUNT 6.5 K/mm3 (4.0-10.0)
[2016-12-15 10:17] LABS: CALCIUM LEVEL 9.3 MG/DL (8.8-10.2); CREATININE FOR GFR 4.83 MG/DL (0.55-1.02); GLOMERULAR FILTRATION RATE 9.2 (>32); POTASSIUM SERUM 4.2 MEQ/L (3.5-5.1)
--- NOTE | 2016-12-15 11:39 | IPNPDOC ---
Subjective Date Seen The patient was seen on 12/15/16. Subjective Chief Complaint/HPI Patient seen and examined at the bedside. Denies any acute overnight complaints at this time. States that she is eager to be discharged from the hospital. Objective Physical Examination General Exam: Positive: Alert, Cooperative, No Acute Distress ENT Exam: Positive: Atraumatic, Mucous membr. 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 CT Chest noted, large Mediastinal Mass 7.5 x 7.5 cm concerning for possible malignancy MRI Brain and CT Abd/Pel with no evidence of metastasis Pulmonary consult appreciated--s/p Biopsy on 11/28 Biopsy results notable for Small Cell Ca Oncology on board s/p chemotherapy x 3 doses--further chemotherapy to be continued in the following week(s) as per Oncology, and to be pursued as an outpatient PFS on board for placement ESRD on HD Receives HD on , W, F Appreciate Nephrology's assistance with this Symptomatic Anemia likely 2/2 underlying ESRD and Chemotherapy Hgb noted to be 8 this morning, a unit of PRBC will be administered during Dialysis today s/p transfusion of 4 Units since admission No overt bleeding noted We will cont to monitor Hgb levels Elevated Troponins likely 2/2 Demand Ischemia from Symptomatic Anemia EKG with no acute ST-T changes Peak Troponin of 0.20 on 11/28/16 Patient w/o any complaints of chest pain at this time 2D ECHO notable for preserved EF, severe MR, elevated Right Ventricle Pressure ( likely 2/2 mediastinal mass) We will cont to monitor the patient Hypertension, stable Continue lisinopril, Coreg, isosorbide mononitrate Dyslipidemia Continue statin Diabetes mellitus Continue insulin sliding scale GERD Continue PPI Hypothyroidism Continue Synthroid Dementia Continue donepezil Depression Continue cervical History of breast cancer with left mastectomy DVT prophylaxis Heparin SC Dispo--PFS on board to facilitate placement in [facility] in the [place], [place] area. We will follow up with their progress. VS, I&O, 24H, Fishbone Vital Signs/I&O Vital Signs Date Time Temp Pulse Resp B/P (MAP) Pulse Ox O2 Delivery O2 Flow Rate FiO2 12/15/16 06:00 96.2 63 18 138/54 (82) 98 Room Air 12/14/16 07:30 0.0 I&O- Last 24 Hours up to 6 AM 12/15/16 06:00 Intake Total 1190 ml Balance 1190 ml Laboratory Data 24H LABS Laboratory Tests 2 12/15/16 09:26: Anion Gap 8, Glomerular Filtration Rate 9.2L, Blood Urea Nitrogen 65H, Creatinine 4.83H, Sodium Level 136, Potassium Level 4.2, Chloride Level 102, Carbon Dioxide Level 26, Calcium Level 9.3 CBC/BMP Laboratory Tests 12/15/16 09:26 Red Blood Count 2.58 L, Mean Corpuscular Volume 96.7 H, Mean Corpuscular Hemoglobin 30.9, Mean Corpuscular Hemoglobin Concent 31.9 L, Red Cell Distribution Width 16.9 H, Calcium Level 9.3 Microbiology Microbiology 12/08/16 Stool Occult Blood (KILO) - Final, Complete MISSY HARRIS MD Dec 15, 2016 11:39
[2016-12-15] MEDS: ALPRAZolam 0.25 MG TAB PO PRN ×2 (12:45→18:11)
[2016-12-15] MEDS ORDERED: HEPARIN 1,000 UNITS/ML 10ML VIAL (FOR RADIOLOGY& DIALYSIS ONLY) IV ONE (13:15)
[2016-12-15] MEDS ORDERED: HEPARIN 1,000 UNITS/ML 10ML VIAL (FOR RADIOLOGY& DIALYSIS ONLY) XX ONE (13:15)
[2016-12-15 14:00] VITALS: BP 131/64
--- NOTE | 2016-12-15 19:02 | IPN ---
DATE: 12/15/2016 Mrs. Goetz is seen this morning on her bedside during hemodialysis. She is feeling well and denies any nausea, vomiting, dyspnea or chest pain. She is currently sitting in the recliner chair where she is receiving dialysis. PHYSICAL EXAMINATION: Temperature 96.2 degrees Fahrenheit, heart rate 64 per minute, respiratory rate 18 per minute and blood pressure 138/54 mmHg and oxygen saturation is 98% on room air. Head is atraumatic. Neck is supple and without jugular venous distention (JVD) or thyroid enlargement. Oral mucosa is moist and healthy. Pupils equal and reactive to light and sclera is anicteric. Dialysis catheter in right internal jugular vein is intact. Heart: Sounds are regular and lungs are clear to auscultation. Abdomen: Soft and nontender and without any palpable organomegaly. Extremities: Without cyanosis or clubbing. Left arm lymphatic edema is unchanged and her arm is wrapped in Ruperto bandage. Neurologically, she is awake, alert and at her baseline mentation. Today's labs show WBC count 6.5, hemoglobin 8.0, hematocrit 24.9. Sodium is 136 and potassium 4.2. BUN 65 and creatinine 4.83. PROBLEM #1: End-stage renal disease. The patient is being dialyzed today, which is a regular dialysis day for her. She is tolerating dialysis treatment well. We are removing about 2.5 liters of fluid today. Her electrolytes are all within normal range and volume status is well compensated. PROBLEM #2: Anemia. Anemia worsened and most likely this is the result of her chemotherapy. She will be given one unit of packed red blood cells (RBCs) today during dialysis. PROBLEM #3: Hypertension. Blood pressure is very well controlled at present and no change in any antihypertensive medications is indicated. PROBLEM #4: Small cell lung cancer. The patient is currently receiving chemotherapy, which she receives every week after dialysis. She has been tolerating it well so far.
[2016-12-15] MEDS: PRAVASTATIN 10 MG TAB PO SCH (20:36)
[2016-12-15] MEDS: QUEtiapine FUMARATE 25 MG TAB PO SCH (20:37)
[2016-12-15] MEDS: LORazepam 1 MG TAB PO PRN (21:44)
[2016-12-15 22:00] VITALS: BP 136/71
[2016-12-16] MEDS: IPRATROPIUM 0.5MG/ALBUTEROL 2.5MG INH SOL UD 3ML (DUONEB)(J7620) NEB SCH ×4 (01:44→19:51)
[2016-12-16 02:00] VITALS: BP 138/68
[2016-12-16] MEDS: HEPARIN SOD (PORCINE) 5000 UNITS/ML VIAL SQ SCH ×3 (05:30→20:41)
[2016-12-16] MEDS: SODIUM CHLORIDE 0.9% INJ 10 ML SYR IV SCH ×2 (05:30→19:19)
[2016-12-16 06:00] VITALS: BP 142/71
[2016-12-16 06:10] LABS: MEAN CORPUSCULAR HEMOGLOBIN 30.4 pg (27.0-33.0); MEAN CORPUSCULAR VOLUME 95.1 fl (80.0-96.0); WHITE BLOOD COUNT 5.7 K/mm3 (4.0-10.0)
[2016-12-16 06:24] LABS: CALCIUM LEVEL 9.4 MG/DL (8.8-10.2); CREATININE FOR GFR 2.91 MG/DL (0.55-1.02); GLOMERULAR FILTRATION RATE 16.4 (>32); POTASSIUM SERUM 4.3 MEQ/L (3.5-5.1)
--- NOTE | 2016-12-16 11:27 | IPNPDOC ---
Subjective Date Seen The patient was seen on 12/16/16. Subjective Chief Complaint/HPI Patient seen and examined at the bedside. States that she is feeling well and denies any acute complaints at this time. Objective Physical Examination General Exam: Positive: Alert, Cooperative, No Acute Distress ENT Exam: Positive: Atraumatic, Mucous membr. 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 CT Chest noted, large Mediastinal Mass 7.5 x 7.5 cm concerning for possible malignancy MRI Brain and CT Abd/Pel with no evidence of metastasis Pulmonary consult appreciated--s/p Biopsy on 11/28 Biopsy results notable for Small Cell Ca Oncology on board s/p chemotherapy x 3 doses--further palliative chemotherapy to be continued in the following week(s) as per Oncology, and to be pursued as an outpatient PFS on board for placement ESRD on HD Receives HD on M, W, F Appreciate Nephrology's assistance with this Symptomatic Anemia likely 2/2 underlying ESRD and Chemotherapy Hgb stable this morning s/p transfusion of 4 Units since admission No overt bleeding noted We will cont to monitor Hgb levels Elevated Troponins likely 2/2 Demand Ischemia from Symptomatic Anemia EKG with no acute ST-T changes Peak Troponin of 0.20 on 11/28/16 Patient w/o any complaints of chest pain at this time 2D ECHO notable for preserved EF, severe MR, elevated Right Ventricle Pressure ( likely 2/2 mediastinal mass) We will cont to monitor the patient Hypertension, stable Continue lisinopril, Coreg, isosorbide mononitrate Dyslipidemia Continue statin Diabetes mellitus Continue insulin sliding scale GERD Continue PPI Hypothyroidism Continue Synthroid Dementia Continue donepezil Depression Continue cervical History of breast cancer with left mastectomy DVT prophylaxis Heparin SC Dispo--PFS on board to facilitate placement in [facility] in the [place], [place] area. We will follow up with their progress. VS, I&O, 24H, Fishbone Vital Signs/I&O Vital Signs Date Time Temp Pulse Resp B/P (MAP) Pulse Ox O2 Delivery O2 Flow Rate FiO2 12/16/16 06:00 98.0 84 20 142/71 (94) 92 Room Air 12/14/16 07:30 0.0 I&O- Last 24 Hours up to 6 AM 12/16/16 06:00 Intake Total 690 ml Output Total 2000 ml Balance -1310 ml Laboratory Data 24H LABS Laboratory Tests 2 12/16/16 05:57: Anion Gap 7L, Glomerular Filtration Rate 16.4L, Blood Urea Nitrogen 34H, Creatinine 2.91H, Sodium Level 135L, Potassium Level 4.3, Chloride Level 102, Carbon Dioxide Level 26, Calcium Level 9.4 CBC/BMP Laboratory Tests 12/16/16 05:57 Red Blood Count 3.06 L, Mean Corpuscular Volume 95.1, Mean Corpuscular Hemoglobin 30.4, Mean Corpuscular Hemoglobin Concent 32.0, Red Cell Distribution Width 17.0 H, Calcium Level 9.4 Microbiology Microbiology 12/08/16 Stool Occult Blood (KILO) - Final, Complete MISSY HARRIS MD Dec 16, 2016 11:27
[2016-12-16] MEDS: (RENVELA) SEVELAMER **CARBONate** 800 MG TAB PO SCH ×3 (12:30→19:19)
[2016-12-16] MEDS: DONEPEZIL 5 MG TAB PO SCH (13:31)
[2016-12-16] MEDS: FAMOTIDINE 20 MG TAB PO SCH (13:31)
[2016-12-16] MEDS: glipiZIDE (GLUCOTROL) 5 MG TAB PO SCH (13:32)
[2016-12-16] MEDS: ASPIRIN 81 MG ENTERIC TAB PO SCH (13:32)
[2016-12-16] MEDS: ALLOPURINOL 100 MG TAB PO SCH ×2 (13:32→20:41)
[2016-12-16] MEDS: PANTOPRAZOLE 40MG TAB (PROTONIX) PO SCH (13:32)
[2016-12-16 14:00] VITALS: BP 135/86
--- NOTE | 2016-12-16 16:59 | IPN ---
DATE: 12/16/2016 SUBJECTIVE: Mrs. Goetz is seen this morning on her bedside. Her daughter is visiting today. The patient remains weak and needs assistance with walking. She denies any dyspnea, chest pain, nausea, vomiting, fever or chills. She did undergo hemodialysis yesterday which she tolerated very well. PHYSICAL EXAMINATION: VITAL SIGNS: Temperature 98 degrees Fahrenheit, heart rate 84 and respiratory rate 20 per minute. Blood pressure 142/70 mmHg and oxygen saturation 92% on room air. HEAD/NECK: Head is atraumatic. Neck is supple and without jugular venous distention (JVD) or thyroid enlargement. Dialysis catheter is intact in right internal jugular vein. CARDIORESPIRATORY: Heart sounds regular and lungs clear to auscultation. ABDOMEN: Soft and nontender and without a palpable organomegaly. EXTREMITIES: Without cyanosis or clubbing. Left arm lymphatic edema is chronic and unchanged. NEUROLOGIC: She is awake, alert and at her baseline mentation. LABORATORY DATA: Today's labs show WBC count 5.7, hemoglobin 9.3 and hematocrit 29.1. Platelets 216. Sodium 135 and potassium 4.3. BUN 34 and creatinine 2.91. PROBLEMS: 1. End-stage renal disease. The patient was dialyzed yesterday. She tolerated her dialysis treatment very well. At present, her volume status is very well compensated and electrolytes are reasonable. She will be scheduled for next hemodialysis on Sunday. 2. Anemia. The patient was transfused one unit of packed red blood cells (RBCs) yesterday during dialysis due to worsening anemia and it has improved. She continues to receive Aranesp 300 mcg once a week. 3. Small cell lung cancer. The patient continues to receive chemotherapy per oncology. 4. Disposition: At present the patient is waiting for a custodial bed as family feels that they cannot provide care at home.
[2016-12-16] MEDS: ALPRAZolam 0.25 MG TAB PO PRN (19:19)
[2016-12-16] MEDS: LORazepam 1 MG TAB PO PRN (20:42)
[2016-12-16] MEDS: QUEtiapine FUMARATE 25 MG TAB PO SCH (20:42)
[2016-12-16] MEDS: PRAVASTATIN 10 MG TAB PO SCH (20:42)
[2016-12-16 22:00] VITALS: BP 102/65
[2016-12-17 02:00] VITALS: BP 110/69
[2016-12-17] MEDS: IPRATROPIUM 0.5MG/ALBUTEROL 2.5MG INH SOL UD 3ML (DUONEB)(J7620) NEB SCH ×4 (02:42→19:54)
[2016-12-17] MEDS: HEPARIN SOD (PORCINE) 5000 UNITS/ML VIAL SQ SCH ×3 (05:22→22:49)
[2016-12-17] MEDS: SODIUM CHLORIDE 0.9% INJ 10 ML SYR IV SCH ×2 (05:22→18:00)
[2016-12-17] MEDS: LEVOTHYROXINE 25MCG TABLET (0.025MG) PO SCH (05:22)
[2016-12-17 05:48] LABS: CALCIUM LEVEL 9.6 MG/DL (8.8-10.2); CREATININE FOR GFR 4.14 MG/DL (0.55-1.02); GLOMERULAR FILTRATION RATE 10.9 (>32); POTASSIUM SERUM 4.6 MEQ/L (3.5-5.1)
[2016-12-17 05:49] LABS: MEAN CORPUSCULAR HEMOGLOBIN 30.4 pg (27.0-33.0); MEAN CORPUSCULAR HGB CONC 31.4 g/dl (32.0-36.5); MEAN CORPUSCULAR VOLUME 96.7 fl (80.0-96.0); RED CELL DISTRIBUTION WIDTH 16.7 % (11.5-14.5); WHITE BLOOD COUNT 4.8 K/mm3 (4.0-10.0)
[2016-12-17 06:00] VITALS: BP 141/62
[2016-12-17] MEDS: ALLOPURINOL 100 MG TAB PO SCH ×2 (10:48→22:49)
[2016-12-17] MEDS: DONEPEZIL 5 MG TAB PO SCH (10:48)
[2016-12-17] MEDS: FAMOTIDINE 20 MG TAB PO SCH (10:49)
[2016-12-17] MEDS: glipiZIDE (GLUCOTROL) 5 MG TAB PO SCH (10:49)
[2016-12-17] MEDS: PANTOPRAZOLE 40MG TAB (PROTONIX) PO SCH (10:49)
[2016-12-17] MEDS: ASPIRIN 81 MG ENTERIC TAB PO SCH (10:49)
[2016-12-17] MEDS: (RENVELA) SEVELAMER **CARBONate** 800 MG TAB PO SCH ×3 (10:50→18:00)
[2016-12-17] MEDS: ALPRAZolam 0.25 MG TAB PO PRN ×2 (10:50→22:48)
--- NOTE | 2016-12-17 11:42 | IPNPDOC ---
Subjective Date Seen The patient was seen on 12/17/16. Subjective Chief Complaint/HPI Patient seen and examined at the bedside. Offers no acute complaints at this time. Objective Physical Examination General Exam: Positive: Alert, Cooperative, No Acute Distress ENT Exam: Positive: Atraumatic, Mucous membr. 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 CT Chest noted, large Mediastinal Mass 7.5 x 7.5 cm concerning for possible malignancy MRI Brain and CT Abd/Pel with no evidence of metastasis Pulmonary consult appreciated--s/p Biopsy on 11/28 Biopsy results notable for Small Cell Ca Oncology on board s/p chemotherapy x 3 doses--further palliative chemotherapy to be continued in the following week(s) as per Oncology, and to be pursued as an outpatient PFS on board for placement ESRD on HD Receives HD on M, W, F Appreciate Nephrology's assistance with this Symptomatic Anemia likely 2/2 underlying ESRD and Chemotherapy Hgb stable this morning s/p transfusion of 4 Units since admission No overt bleeding noted We will cont to monitor Hgb levels Elevated Troponins likely 2/2 Demand Ischemia from Symptomatic Anemia EKG with no acute ST-T changes Peak Troponin of 0.20 on 11/28/16 Patient w/o any complaints of chest pain at this time 2D ECHO notable for preserved EF, severe MR, elevated Right Ventricle Pressure ( likely 2/2 mediastinal mass) We will cont to monitor the patient Hypertension, stable Continue lisinopril, Coreg, isosorbide mononitrate Dyslipidemia Continue statin Diabetes mellitus Continue insulin sliding scale GERD Continue PPI Hypothyroidism Continue Synthroid Dementia Continue donepezil Depression Continue cervical History of breast cancer with left mastectomy DVT prophylaxis Heparin SC Dispo--PFS on board to facilitate placement in [facility] in the [place], [place] area. We will follow up with their progress. VS, I&O, 24H, Fishbone Vital Signs/I&O Vital Signs Date Time Temp Pulse Resp B/P (MAP) Pulse Ox O2 Delivery O2 Flow Rate FiO2 12/17/16 06:00 97.6 82 20 141/62 (88) 96 Room Air 12/14/16 07:30 0.0 I&O- Last 24 Hours up to 6 AM 12/17/16 06:00 Intake Total 840 ml Balance 840 ml Laboratory Data 24H LABS Laboratory Tests 2 12/17/16 05:12: Anion Gap 7L, Glomerular Filtration Rate 10.9L, Blood Urea Nitrogen 53#H, Creatinine 4.14H, Sodium Level 137, Potassium Level 4.6, Chloride Level 102, Carbon Dioxide Level 28, Calcium Level 9.6 CBC/BMP Laboratory Tests 12/17/16 05:12 Red Blood Count 3.01 L, Mean Corpuscular Volume 96.7 H, Mean Corpuscular Hemoglobin 30.4, Mean Corpuscular Hemoglobin Concent 31.4 L, Red Cell Distribution Width 16.7 H, Calcium Level 9.6 Microbiology Microbiology 12/08/16 Stool Occult Blood (KILO) - Final, Complete MISSY HARRIS MD Dec 17, 2016 11:42
[2016-12-17 14:00] VITALS: BP 155/72
[2016-12-17 22:00] VITALS: BP 141/61
[2016-12-17] MEDS: QUEtiapine FUMARATE 25 MG TAB PO SCH (22:49)
[2016-12-17] MEDS: PRAVASTATIN 10 MG TAB PO SCH (22:49)
[2016-12-18 02:00] VITALS: BP 148/65
[2016-12-18] MEDS: IPRATROPIUM 0.5MG/ALBUTEROL 2.5MG INH SOL UD 3ML (DUONEB)(J7620) NEB SCH ×4 (02:00→20:11)
[2016-12-18] MEDS: ALLOPURINOL 100 MG TAB PO SCH ×2 (05:42→22:38)
[2016-12-18] MEDS: PANTOPRAZOLE 40MG TAB (PROTONIX) PO SCH (05:42)
[2016-12-18] MEDS: LEVOTHYROXINE 25MCG TABLET (0.025MG) PO SCH (05:43)
[2016-12-18] MEDS: DONEPEZIL 5 MG TAB PO SCH (05:43)
[2016-12-18] MEDS: CINACALCET 30 MG TAB (SENSIPAR) PO SCH (05:43)
[2016-12-18] MEDS: FAMOTIDINE 20 MG TAB PO SCH (05:43)
[2016-12-18] MEDS: (RENVELA) SEVELAMER **CARBONate** 800 MG TAB PO SCH ×3 (05:43→17:48)
[2016-12-18] MEDS: ASPIRIN 81 MG ENTERIC TAB PO SCH (05:43)
[2016-12-18] MEDS: SODIUM CHLORIDE 0.9% INJ 10 ML SYR IV SCH ×2 (05:44→17:48)
[2016-12-18] MEDS: HEPARIN SOD (PORCINE) 5000 UNITS/ML VIAL SQ SCH ×3 (05:44→22:39)
[2016-12-18 06:00] VITALS: BP 132/63
[2016-12-18 06:25] LABS: MEAN CORPUSCULAR VOLUME 96.8 fl (80.0-96.0); RED CELL DISTRIBUTION WIDTH 16.6 % (11.5-14.5); WHITE BLOOD COUNT 5.4 K/mm3 (4.0-10.0)
[2016-12-18 06:44] LABS: CALCIUM LEVEL 9.4 MG/DL (8.8-10.2); CREATININE FOR GFR 5.11 MG/DL (0.55-1.02); GLOMERULAR FILTRATION RATE 8.6 (>32); POTASSIUM SERUM 4.8 MEQ/L (3.5-5.1)
[2016-12-18] MEDS: glipiZIDE (GLUCOTROL) 5 MG TAB PO SCH (08:47)
[2016-12-18] MEDS ORDERED: HEPARIN 1,000 UNITS/ML 10ML VIAL (FOR RADIOLOGY& DIALYSIS ONLY) IV ONE (10:15)
[2016-12-18 14:00] VITALS: BP 98/65
--- NOTE | 2016-12-18 14:44 | IPNPDOC ---
Subjective Date Seen The patient was seen on 12/18/16. Subjective Chief Complaint/HPI Patient seen and examined at the bedside. Denies any acute complaints at this time. Objective Physical Examination General Exam: Positive: Alert, Cooperative, No Acute Distress ENT Exam: Positive: Atraumatic, Mucous membr. 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 CT Chest noted, large Mediastinal Mass 7.5 x 7.5 cm concerning for possible malignancy MRI Brain and CT Abd/Pel with no evidence of metastasis Pulmonary consult appreciated--s/p Biopsy on 11/28 Biopsy results notable for Small Cell Ca Oncology on board s/p chemotherapy x 3 doses PFS on board for placement ESRD on HD Receives HD on , W, F Appreciate Nephrology's assistance with this Symptomatic Anemia likely 2/2 underlying ESRD and Chemotherapy s/p transfusion of 4 Units since admission No overt bleeding noted We will cont to monitor Hgb levels Elevated Troponins likely 2/2 Demand Ischemia from Symptomatic Anemia EKG with no acute ST-T changes Peak Troponin of 0.20 on 11/28/16 Patient w/o any complaints of chest pain at this time 2D ECHO notable for preserved EF, severe MR, elevated Right Ventricle Pressure ( likely 2/2 mediastinal mass) We will cont to monitor the patient Hypertension, stable Continue lisinopril, Coreg, isosorbide mononitrate Dyslipidemia Continue statin Diabetes mellitus Continue insulin sliding scale GERD Continue PPI Hypothyroidism Continue Synthroid Dementia Continue donepezil Depression Continue cervical History of breast cancer with left mastectomy DVT prophylaxis Heparin SC Dispo--PFS on board to facilitate placement in [facility] in the [place], [place] area. We will follow up with their progress. VS, I&O, 24H, Fishbone Vital Signs/I&O Vital Signs Date Time Temp Pulse Resp B/P (MAP) Pulse Ox O2 Delivery O2 Flow Rate FiO2 12/18/16 08:00 Room Air 12/18/16 06:00 97.9 83 18 132/63 (86) 98 12/14/16 07:30 0.0 I&O- Last 24 Hours up to 6 AM 12/18/16 06:00 Intake Total 900 ml Balance 900 ml Laboratory Data 24H LABS Laboratory Tests 2 12/18/16 05:54: Anion Gap 8, Glomerular Filtration Rate 8.6L, Blood Urea Nitrogen 73H, Creatinine 5.11H, Sodium Level 136, Potassium Level 4.8, Chloride Level 102, Carbon Dioxide Level 26, Calcium Level 9.4 CBC/BMP Laboratory Tests 12/18/16 05:54 Red Blood Count 2.68 L, Mean Corpuscular Volume 96.8 H, Mean Corpuscular Hemoglobin 31.0, Mean Corpuscular Hemoglobin Concent 32.0, Red Cell Distribution Width 16.6 H, Calcium Level 9.4 Microbiology Microbiology 12/08/16 Stool Occult Blood (KILO) - Final, Complete MISSY HARRIS MD Dec 18, 2016 14:44
[2016-12-18 18:00] VITALS: BP 110/60
--- NOTE | 2016-12-18 18:08 | IPN ---
DATE: 12/18/2016 SUBJECTIVE: The patient was seen and examined at the bedside today in the morning during hemodialysis. The patient was tolerating the hemodialysis well. He had no complaints at this time. REVIEW OF SYSTEMS: The patient denies any fever, chills, rigors, headache, nausea, vomiting, chest pain or shortness of breath. The rest of the review of systems is negative. OBJECTIVE: VITAL SIGNS: Temperature is 97.9 degrees Fahrenheit, blood pressure is 132/63, pulse is 83, respiratory rate of 18, saturating 98% on room air. INTAKE/OUTPUT: Urine output is not recorded. Weight on the bed scale is not available. PHYSICAL EXAMINATION: GENERAL: The patient is awake, alert, oriented times three, sitting on the sofa getting hemodialysis done. HEAD AND NECK EXAM: Extraocular muscles intact. Pupils equally round and reactive to light. Mucous membranes are moist. Neck is supple. There is no jugular venous distention (JVD). CARDIOVASCULAR: S1, S2, regular rate. No murmur, rub or gallop. RESPIRATORY: Chest is clear to auscultation bilaterally. Bilateral equal air entry. No rales or rhonchi. AV ACCESS: The patient has a tunneled right internal jugular (IJ) hemodialysis catheter. ABDOMEN: Abdomen is soft. Positive bowel sounds. Nontender. No ascites. No organomegaly. MUSCULOSKELETAL: The patient has left upper arm lymphedema and arm is wrapped in a dressing. She has trace edema of the bilateral lower extremities. CENTRAL NERVOUS SYSTEM: No focal neurological deficit. Power is 5/5 in all extremities. LAB REVIEW: CBC showed a WBC of 5.4, hemoglobin 8.3, platelets are 229. BMP showed sodium 136, potassium 4.8, chloride 102, bicarbonate 26, BUN 73, creatinine is 5.1. CURRENT INPATIENT MEDICATIONS: The patient's medications were all reviewed by me. There is no change in the medications today as compared with yesterday. ASSESSMENT: A n 81-year-old female with a past medical history of end-stage renal disease, on hemodialysis every Sunday, Sunday, Sunday, admitted at this time to the hospital with small cell cancer of the lung. PLAN: 1. End-stage renal disease, on hemodialysis. The patient's regular days of dialysis are Sunday, Sunday, Sunday. She is being dialyzed according to her regular regimen. We shall try to do an ultrafiltration of 1 kg as tolerated by her blood pressure. 2. Anemia in end-stage renal disease. Hemoglobin is 8.3, which is slightly suboptimal. Continue current dose of Aranesp 300 mcg IV with hemodialysis. If hemoglobin drops further, then the patient will be given one unit of packed red blood cells transfusion with next hemodialysis. 3. Small cell cancer of the lung. The patient is getting chemotherapy as per hematology and oncology. She is symptomatically better.
[2016-12-18] MEDS: ALPRAZolam 0.25 MG TAB PO PRN (19:06)
[2016-12-18 22:00] VITALS: BP 119/55
[2016-12-18] MEDS: QUEtiapine FUMARATE 25 MG TAB PO SCH (22:37)
[2016-12-18] MEDS: PRAVASTATIN 10 MG TAB PO SCH (22:38)
[2016-12-19] MEDS: IPRATROPIUM 0.5MG/ALBUTEROL 2.5MG INH SOL UD 3ML (DUONEB)(J7620) NEB SCH ×4 (01:14→19:41)
[2016-12-19 02:00] VITALS: BP 114/58
[2016-12-19] MEDS: SODIUM CHLORIDE 0.9% INJ 10 ML SYR IV SCH ×2 (05:06→17:54)
[2016-12-19] MEDS: LEVOTHYROXINE 25MCG TABLET (0.025MG) PO SCH (05:07)
[2016-12-19] MEDS: HEPARIN SOD (PORCINE) 5000 UNITS/ML VIAL SQ SCH ×3 (05:07→21:13)
[2016-12-19 06:00] VITALS: BP 120/61
[2016-12-19 06:42] LABS: CALCIUM LEVEL 9.3 MG/DL (8.8-10.2); CREATININE FOR GFR 3.44 MG/DL (0.55-1.02); GLOMERULAR FILTRATION RATE 13.5 (>32); MEAN CORPUSCULAR HEMOGLOBIN 30.2 pg (27.0-33.0); MEAN CORPUSCULAR HGB CONC 31.8 g/dl (32.0-36.5); MEAN CORPUSCULAR VOLUME 95.2 fl (80.0-96.0); POTASSIUM SERUM 3.9 MEQ/L (3.5-5.1); RED CELL DISTRIBUTION WIDTH 16.7 % (11.5-14.5)
--- NOTE | 2016-12-19 09:13 | IPNPDOC ---
Subjective Date Seen The patient was seen on 12/19/16. Subjective Chief Complaint/HPI Patient seen and examined at the bedside. States that she is eager to be moved from the hospital to a nursing facility but is otherwise feeling well and in good spirits. She denies any acute complaints at this time. Objective Physical Examination General Exam: Positive: Alert, Cooperative, No Acute Distress ENT Exam: Positive: Atraumatic, Mucous membr. 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 CT Chest noted, large Mediastinal Mass 7.5 x 7.5 cm concerning for possible malignancy MRI Brain and CT Abd/Pel with no evidence of metastasis Pulmonary consult appreciated--s/p Biopsy on 11/28 Biopsy results notable for Small Cell Ca Oncology on board s/p chemotherapy x 3 doses PFS on board for placement ESRD on HD Receives HD on M, W, F Appreciate Nephrology's assistance with this Symptomatic Anemia likely 2/2 underlying ESRD and Chemotherapy s/p transfusion of 4 Units since admission No overt bleeding noted cont Aranesp as per Nephro We will cont to monitor Hgb levels Elevated Troponins likely 2/2 Demand Ischemia from Symptomatic Anemia EKG with no acute ST-T changes Peak Troponin of 0.20 on 11/28/16 Patient w/o any complaints of chest pain at this time 2D ECHO notable for preserved EF, severe MR, elevated Right Ventricle Pressure ( likely 2/2 mediastinal mass) We will cont to monitor the patient Hypertension, stable Dyslipidemia Continue statin Diabetes mellitus Continue insulin sliding scale GERD Continue PPI Hypothyroidism Continue Synthroid Dementia Continue donepezil Depression Continue seroquel History of breast cancer with left mastectomy DVT prophylaxis Heparin SC Dispo--PFS on board to facilitate placement in [facility] in the [place], [place] area. We will follow up with their progress. VS, I&O, 24H, Fishbone Vital Signs/I&O Vital Signs Date Time Temp Pulse Resp B/P (MAP) Pulse Ox O2 Delivery O2 Flow Rate FiO2 12/19/16 06:00 97.7 84 16 120/61 (80) 96 Room Air 12/14/16 07:30 0.0 I&O- Last 24 Hours up to 6 AM 12/19/16 06:00 Intake Total 240 ml Output Total 500 ml Balance -260 ml Laboratory Data 24H LABS Laboratory Tests 2 12/19/16 06:15: Anion Gap 9, Glomerular Filtration Rate 13.5L, Blood Urea Nitrogen 40H, Creatinine 3.44H, Sodium Level 133L, Potassium Level 3.9, Chloride Level 99, Carbon Dioxide Level 25, Calcium Level 9.3 CBC/BMP Laboratory Tests 12/19/16 06:15 Red Blood Count 2.75 L, Mean Corpuscular Volume 95.2, Mean Corpuscular Hemoglobin 30.2, Mean Corpuscular Hemoglobin Concent 31.8 L, Red Cell Distribution Width 16.7 H, Calcium Level 9.3 MISSY HARRIS MD Dec 19, 2016 09:13
[2016-12-19] MEDS: (RENVELA) SEVELAMER **CARBONate** 800 MG TAB PO SCH ×3 (09:18→17:53)
[2016-12-19] MEDS: glipiZIDE (GLUCOTROL) 5 MG TAB PO SCH (09:19)
[2016-12-19] MEDS: DONEPEZIL 5 MG TAB PO SCH (09:19)
[2016-12-19] MEDS: PANTOPRAZOLE 40MG TAB (PROTONIX) PO SCH (09:19)
[2016-12-19] MEDS: FAMOTIDINE 20 MG TAB PO SCH (09:19)
[2016-12-19] MEDS: ASPIRIN 81 MG ENTERIC TAB PO SCH (09:19)
[2016-12-19] MEDS: ALLOPURINOL 100 MG TAB PO SCH ×2 (09:20→21:13)
[2016-12-19 10:00] VITALS: BP 91/51
[2016-12-19 14:00] VITALS: BP 115/56
[2016-12-19] MEDS: SODIUM CHLORIDE 0.9% INJ 10 ML SYR IV PRN (14:02)
[2016-12-19] MEDS: ALPRAZolam 0.25 MG TAB PO PRN (18:05)
[2016-12-19] MEDS: QUEtiapine FUMARATE 25 MG TAB PO SCH (21:13)
[2016-12-19] MEDS: PRAVASTATIN 10 MG TAB PO SCH (21:13)
[2016-12-19 22:00] VITALS: BP 126/57
[2016-12-20] MEDS: IPRATROPIUM 0.5MG/ALBUTEROL 2.5MG INH SOL UD 3ML (DUONEB)(J7620) NEB SCH ×4 (02:00→19:26)
[2016-12-20] MEDS: HEPARIN SOD (PORCINE) 5000 UNITS/ML VIAL SQ SCH ×3 (05:25→20:28)
[2016-12-20] MEDS: SODIUM CHLORIDE 0.9% INJ 10 ML SYR IV SCH ×2 (05:25→17:07)
[2016-12-20] MEDS: LEVOTHYROXINE 25MCG TABLET (0.025MG) PO SCH (05:25)
[2016-12-20] MEDS: PANTOPRAZOLE 40MG TAB (PROTONIX) PO SCH (05:46)
[2016-12-20] MEDS: (RENVELA) SEVELAMER **CARBONate** 800 MG TAB PO SCH ×3 (05:46→17:06)
[2016-12-20] MEDS: ASPIRIN 81 MG ENTERIC TAB PO SCH (05:46)
[2016-12-20] MEDS: ALLOPURINOL 100 MG TAB PO SCH ×2 (05:46→20:27)
[2016-12-20] MEDS: FAMOTIDINE 20 MG TAB PO SCH (05:46)
[2016-12-20] MEDS: DONEPEZIL 5 MG TAB PO SCH (05:46)
[2016-12-20 06:00] VITALS: BP 115/52
[2016-12-20] MEDS: glipiZIDE (GLUCOTROL) 5 MG TAB PO SCH (08:36)
[2016-12-20] MEDS: ALPRAZolam 0.25 MG TAB PO PRN ×2 (08:36→18:40)
[2016-12-20 09:23] LABS: MEAN CORPUSCULAR HGB CONC 32.2 g/dl (32.0-36.5); MEAN CORPUSCULAR VOLUME 96.2 fl (80.0-96.0); RED CELL DISTRIBUTION WIDTH 16.9 % (11.5-14.5)
[2016-12-20 09:48] LABS: CALCIUM LEVEL 9.2 MG/DL (8.8-10.2); CREATININE FOR GFR 4.73 MG/DL (0.55-1.02); GLOMERULAR FILTRATION RATE 9.4 (>32)
--- NOTE | 2016-12-20 10:39 | IPNPDOC ---
Subjective Date Seen The patient was seen on 12/20/16. Subjective Chief Complaint/HPI Patient seen and examined at the bedside this morning. States that she is feeling well, and notes that she is eager to return home to live with her son. She denies any acute overnight complaints. Objective Physical Examination General Exam: Positive: Alert, Cooperative, No Acute Distress ENT Exam: Positive: Atraumatic, Mucous membr. 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 CT Chest noted, large Mediastinal Mass 7.5 x 7.5 cm concerning for possible malignancy MRI Brain and CT Abd/Pel with no evidence of metastasis Pulmonary consult appreciated--s/p Biopsy on 11/28 Biopsy results notable for Small Cell Ca Oncology on board s/p chemotherapy x 3 doses--Scheduled for chemotherapy again next week PFS on board to assist with delineation of disposition ESRD on HD Receives HD on M, W, F Appreciate Nephrology's assistance with this Symptomatic Anemia likely 2/2 underlying ESRD and Chemotherapy s/p transfusion of 4 Units since admission No overt bleeding noted cont Aranesp as per Nephro We will cont to monitor Hgb levels Elevated Troponins likely 2/2 Demand Ischemia from Symptomatic Anemia EKG with no acute ST-T changes Peak Troponin of 0.20 on 11/28/16 Patient w/o any complaints of chest pain at this time 2D ECHO notable for preserved EF, severe MR, elevated Right Ventricle Pressure ( likely 2/2 mediastinal mass) We will cont to monitor the patient Hypertension, stable Dyslipidemia Continue statin Diabetes mellitus Continue insulin sliding scale GERD Continue PPI Hypothyroidism Continue Synthroid Dementia Continue donepezil Depression Continue seroquel History of breast cancer with left mastectomy DVT prophylaxis Heparin SC Dispo--I did have an extensive conversation with the patient's daughter Shelley Feliciano yesterday afternoon. I discussed the difficulty our PFS/CM staff is having regarding placement for the patient given her need of outpatient dialysis and now outpatient chemotherapy. Ms. Feliciano conveyed to me that the family is considering taking the patient home and having 24/7 care. Son Anastacio Goetz was called, but there was no answer, and a call was not returned. Phone number to reach me was left via sister Shelley. PFS on board to facilitate delineation of disposition. We will follow up with the patient, daughter Shelley , and son Anastacio in regards to disposition moving forward. VS, I&O, 24H, Fishbone Vital Signs/I&O Vital Signs Date Time Temp Pulse Resp B/P (MAP) Pulse Ox O2 Delivery O2 Flow Rate FiO2 12/20/16 06:00 97.9 67 18 115/52 (73) 98 Room Air 12/14/16 07:30 0.0 I&O- Last 24 Hours up to 6 AM 12/20/16 06:00 Intake Total 860 ml Balance 860 ml Laboratory Data 24H LABS Laboratory Tests 2 12/20/16 08:57: Anion Gap 8, Glomerular Filtration Rate 9.4L, Blood Urea Nitrogen 61#H, Creatinine 4.73H, Sodium Level 136, Potassium Level 4.0, Chloride Level 102, Carbon Dioxide Level 26, Calcium Level 9.2 CBC/BMP Laboratory Tests 12/20/16 08:57 Red Blood Count 2.47 L, Mean Corpuscular Volume 96.2 H, Mean Corpuscular Hemoglobin 31.0, Mean Corpuscular Hemoglobin Concent 32.2, Red Cell Distribution Width 16.9 H, Calcium Level 9.2 MISSY HARRIS MD Dec 20, 2016 10:39
--- NOTE | 2016-12-20 11:05 | IPN ---
DATE: 12/20/2016 SUBJECTIVE: Patient was seen and examined at the beside today morning due to hemodialysis procedure. Patient was getting hemodialysis with no apparent distress but she reports that she is feeling very weak and tired today. REVIEW OF SYSTEMS: Patient denies any fevers, chills, rigors, headache, nausea, vomiting, chest pain, shortness of breath, pain in abdomen, constipation or diarrhea. She reports feeling very weak and tired and she reports that her shortness of breath is at baseline. The rest of review of system is negative. OBJECTIVE: Vital signs: Temperature is 97.9 degrees Fahrenheit, blood pressure is 115/52, pulse is 67, respiratory rate of 18, saturating 98% on room air. Intake and output: Urine output is not recorded at this time. PHYSICAL EXAMINATION: General: Patient is awake, alert, oriented times three sitting on the sofa getting hemodialysis. Head and neck exam: Extraocular muscles intact. Pupils equally round and reactive to light. Mucous membranes are moist. Neck is supple, there is no jugular venous distention (JVD). Cardiovascular: S1, S2. Regular rate. No murmur, rub or gallop. Respiratory: Chest is clear to auscultation bilaterally. Bilateral equal air entry. No rales or rhonchi. AV access: The patient has a right IJ tunneled hemodialysis catheter. Abdomen: Soft, positive bowel sounds, nontender, no ascites, no organomegaly. Musculoskeletal: Patient has left upper arm lymphedema which is covered with compression bandage and she has 1+ edema of the bilateral lower extremities. Central nervous system: No focal neurological deficit. Power is 5/5 in all extremities. Psych: Normal mood and affect. LAB REVIEW: CBC showed WBC of 4, hemoglobin is 7.7, platelets are 190. BMP showed sodium 136, potassium 4, chloride 102, bicarbonate 26, BUN 61, creatinine 4.7, calcium is 9.2. CURRENT INPATIENT MEDICATIONS: Patient's medications were all reviewed by me. There is no change in the medications today. ASSESSMENT: 81-year-old female with past medical history of end stage renal disease on hemodialysis every Sunday, Sunday, Sunday, admitted to the hospital with symptomatic anemia, shortness of breath and was diagnosed with small cell cancer of the lung. She is getting palliative chemotherapy at this time. PLAN: 1. End stage renal disease on hemodialysis. Patient is being dialyzed according to her Sunday, Sunday, Sunday scheduled. We shall try to do an ultrafiltration of 1.5 to 2 kg as tolerated by her blood pressure because of lower extremity edema. 2. Anemia in end stage renal disease and currently on chemotherapy. Patient's hemoglobin has dropped to below 8. Patient is going to get 2 units of packed red blood cells transfusion with hemodialysis and she would also get her Aranesp dose 300 mcg IV today with hemodialysis. 3. Small cell cancer of the lung. Patient is getting palliative chemotherapy as per hematology/oncology.
[2016-12-20] MEDS ORDERED: HEPARIN 1,000 UNITS/ML 10ML VIAL (FOR RADIOLOGY& DIALYSIS ONLY) IV ONE (12:00)
[2016-12-20] MEDS ORDERED: HEPARIN 1,000 UNITS/ML 10ML VIAL (FOR RADIOLOGY& DIALYSIS ONLY) XX ONE (12:00)
[2016-12-20 13:00] VITALS: BP 123/54
[2016-12-20 14:00] VITALS: BP 86/50
[2016-12-20 18:00] VITALS: BP 136/60
[2016-12-20] MEDS: PRAVASTATIN 10 MG TAB PO SCH (20:27)
[2016-12-20] MEDS: QUEtiapine FUMARATE 25 MG TAB PO SCH (20:27)
[2016-12-20 22:00] VITALS: BP 114/69
[2016-12-21] MEDS: IPRATROPIUM 0.5MG/ALBUTEROL 2.5MG INH SOL UD 3ML (DUONEB)(J7620) NEB SCH ×4 (01:08→19:36)
[2016-12-21 06:00] VITALS: BP 112/63
[2016-12-21 06:07] LABS: MEAN CORPUSCULAR HEMOGLOBIN 30.5 pg (27.0-33.0); MEAN CORPUSCULAR HGB CONC 32.3 g/dl (32.0-36.5); MEAN CORPUSCULAR VOLUME 94.6 fl (80.0-96.0); RED CELL DISTRIBUTION WIDTH 16.3 % (11.5-14.5); WHITE BLOOD COUNT 3.8 K/mm3 (4.0-10.0)
[2016-12-21] MEDS: LEVOTHYROXINE 25MCG TABLET (0.025MG) PO SCH (06:14)
[2016-12-21] MEDS: SODIUM CHLORIDE 0.9% INJ 10 ML SYR IV SCH ×2 (06:14→17:09)
[2016-12-21] MEDS: HEPARIN SOD (PORCINE) 5000 UNITS/ML VIAL SQ SCH ×3 (06:15→21:40)
[2016-12-21 06:49] LABS: CALCIUM LEVEL 9.6 MG/DL (8.8-10.2); CREATININE FOR GFR 3.39 MG/DL (0.55-1.02); GLOMERULAR FILTRATION RATE 13.8 (>32); POTASSIUM SERUM 4.2 MEQ/L (3.5-5.1)
[2016-12-21] MEDS: FAMOTIDINE 20 MG TAB PO SCH (08:41)
[2016-12-21] MEDS: (RENVELA) SEVELAMER **CARBONate** 800 MG TAB PO SCH ×3 (08:41→17:13)
[2016-12-21] MEDS: DONEPEZIL 5 MG TAB PO SCH (08:41)
[2016-12-21] MEDS: ALLOPURINOL 100 MG TAB PO SCH ×2 (08:41→21:40)
[2016-12-21] MEDS: ASPIRIN 81 MG ENTERIC TAB PO SCH (08:41)
[2016-12-21] MEDS: PANTOPRAZOLE 40MG TAB (PROTONIX) PO SCH (08:41)
[2016-12-21] MEDS: glipiZIDE (GLUCOTROL) 5 MG TAB PO SCH (08:42)
[2016-12-21] MEDS: SODIUM CHLORIDE 0.9% INJ 10 ML SYR IV PRN (13:35)
[2016-12-21 14:00] VITALS: BP 111/65
--- NOTE | 2016-12-21 14:01 | IPNPDOC ---
Subjective Date Seen The patient was seen on 12/21/16. Subjective Chief Complaint/HPI Patient seen and examined at the bedside. Offers no acute complaints at this time. Objective Physical Examination General Exam: Positive: Alert, Cooperative, No Acute Distress ENT Exam: Positive: Atraumatic, Mucous membr. 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 CT Chest noted, large Mediastinal Mass 7.5 x 7.5 cm concerning for possible malignancy MRI Brain and CT Abd/Pel with no evidence of metastasis Pulmonary consult appreciated--s/p Biopsy on 11/28 Biopsy results notable for Small Cell Ca Oncology on board s/p chemotherapy x 3 doses--Scheduled for chemotherapy again next week PFS on board to assist with delineation of disposition ESRD on HD Receives HD on , W, F Appreciate Nephrology's assistance with this Symptomatic Anemia likely 2/2 underlying ESRD and Chemotherapy s/p transfusion of 6 Units since admission No overt bleeding noted cont Aranesp as per Nephro We will cont to monitor Hgb levels Elevated Troponins likely 2/2 Demand Ischemia from Symptomatic Anemia EKG with no acute ST-T changes Peak Troponin of 0.20 on 11/28/16 Patient w/o any complaints of chest pain at this time 2D ECHO notable for preserved EF, severe MR, elevated Right Ventricle Pressure ( likely 2/2 mediastinal mass) We will cont to monitor the patient Hypertension, stable Dyslipidemia Continue statin Diabetes mellitus Continue insulin sliding scale GERD Continue PPI Hypothyroidism Continue Synthroid Dementia Continue donepezil Depression Continue seroquel History of breast cancer with left mastectomy DVT prophylaxis Heparin SC Dispo--at this time, the patient appears to be progressing with her physical therapy training and functional status. It does appear that the patient would qualify to return home with family supervision at this time. Myself and the PFS/ CM staff have placed several phone calls to the patient's family (son Anastacio Goetz) regarding the patient's improvement in functional status and ability to possibly return home with family supervision, we are still awaiting a call back to set this up. VS, I&O, 24H, Fishbone Vital Signs/I&O Vital Signs Date Time Temp Pulse Resp B/P (MAP) Pulse Ox O2 Delivery O2 Flow Rate FiO2 12/21/16 10:27 Room Air 12/21/16 06:00 97.9 87 18 112/63 (79) 95 I&O- Last 24 Hours up to 6 AM 12/21/16 06:00 Intake Total 420 ml Output Total 1500 ml Balance -1080 ml Laboratory Data 24H LABS Laboratory Tests 2 12/21/16 05:57: Anion Gap 5L, Glomerular Filtration Rate 13.8L, Blood Urea Nitrogen 34H, Creatinine 3.39H, Sodium Level 138, Potassium Level 4.2, Chloride Level 103, Carbon Dioxide Level 30, Calcium Level 9.6 CBC/BMP Laboratory Tests 12/21/16 05:57 Red Blood Count 2.99 L, Mean Corpuscular Volume 94.6, Mean Corpuscular Hemoglobin 30.5, Mean Corpuscular Hemoglobin Concent 32.3, Red Cell Distribution Width 16.3 H, Calcium Level 9.6 MISSY HARRIS MD Dec 21, 2016 14:01
[2016-12-21] MEDS: ALPRAZolam 0.25 MG TAB PO PRN (17:10)
[2016-12-21] MEDS: PRAVASTATIN 10 MG TAB PO SCH (21:40)
[2016-12-21] MEDS: QUEtiapine FUMARATE 25 MG TAB PO SCH (21:41)
[2016-12-21 22:00] VITALS: BP 148/86
[2016-12-21] MEDS: IPRATROPIUM 0.5MG/ALBUTEROL 2.5MG INH SOL UD 3ML (DUONEB)(J7620) NEB PRN (22:14)
[2016-12-22] MEDS: IPRATROPIUM 0.5MG/ALBUTEROL 2.5MG INH SOL UD 3ML (DUONEB)(J7620) NEB SCH ×4 (01:57→19:08)
[2016-12-22 06:00] VITALS: BP 109/70
[2016-12-22] MEDS: LEVOTHYROXINE 25MCG TABLET (0.025MG) PO SCH (06:47)
[2016-12-22] MEDS: ALLOPURINOL 100 MG TAB PO SCH ×2 (06:47→21:23)
[2016-12-22] MEDS: DONEPEZIL 5 MG TAB PO SCH (06:48)
[2016-12-22] MEDS: glipiZIDE (GLUCOTROL) 5 MG TAB PO SCH (06:48)
[2016-12-22] MEDS: FAMOTIDINE 20 MG TAB PO SCH (06:48)
[2016-12-22] MEDS: PANTOPRAZOLE 40MG TAB (PROTONIX) PO SCH (06:48)
[2016-12-22] MEDS: CINACALCET 30 MG TAB (SENSIPAR) PO SCH (06:48)
[2016-12-22] MEDS: (RENVELA) SEVELAMER **CARBONate** 800 MG TAB PO SCH ×3 (06:48→17:14)
[2016-12-22] MEDS: ASPIRIN 81 MG ENTERIC TAB PO SCH (06:48)
[2016-12-22] MEDS: SODIUM CHLORIDE 0.9% INJ 10 ML SYR IV SCH ×2 (06:49→17:14)
[2016-12-22] MEDS: HEPARIN SOD (PORCINE) 5000 UNITS/ML VIAL SQ SCH ×3 (06:49→21:24)
[2016-12-22 11:44] LABS: MEAN CORPUSCULAR HEMOGLOBIN 31.3 pg (27.0-33.0); MEAN CORPUSCULAR VOLUME 95.1 fl (80.0-96.0)
[2016-12-22 12:07] LABS: CREATININE FOR GFR 1.73 MG/DL (0.55-1.02); GLOMERULAR FILTRATION RATE 29.9 (>32); POTASSIUM SERUM 3.8 MEQ/L (3.5-5.1)
[2016-12-22 14:00] VITALS: BP 112/69
[2016-12-22] MEDS ORDERED: HEPARIN 1,000 UNITS/ML 10ML VIAL (FOR RADIOLOGY& DIALYSIS ONLY) IV ONE (14:30)
[2016-12-22] MEDS ORDERED: HEPARIN 1,000 UNITS/ML 10ML VIAL (FOR RADIOLOGY& DIALYSIS ONLY) XX ONE (14:30)
--- NOTE | 2016-12-22 15:09 | IPNPDOC ---
Text Note Date of Service The patient was seen on 12/22/16. NOTE Subjective: Patient is an 81 year old female with a PMHx of DM2, HTN, DLP, ESRD on HD (MWF), Neuropathy, Dementia, Chronic anemia, Hyperparathyroidism, Hx of Diverticulosis / Diverticulitis and Left Breast CA (s/p Mastectomy) who presented as a transfer from [facility] because of SOB. Imaging indicated that she had a large mediastinal mass with vascularity suspicious for cancer. Her hospital course was complicated. 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 Patient was seen and examined at the bedside. She was noted to have reported suicidal ideation yesterday and had a bedside sitter placed. Objective: Vitals (See below) General: Lying in bed, no acute distress, comfortable, AAOx3 HEENT: NC, AT CVS: RRR, +S1S2 Lungs: Diminished lung sounds Abdomen: Soft, ND, NT, +BSx4 Extremities: +Chronic LUE swelling Assessment and plan: 1. Right suprahilar mass - 2/2 Small cell lung cancer - CT chest: Large Mediastinal Mass 7.5 x 7.5 cm concerning for possible malignancy - MRI Brain and CT Abd/Pel with no evidence of metastasis - s/p Biopsy on 11/28; positive for small cell - Dr. Cazares for oncology; chemotherapy x 3 doses; scheduled for chemotherapy next week - Will continue as an outpatient - Will c/w PICC line in interim; may need infusion port placement if continuing - Placement for tomorrow (12/23) 2. ESRD on HD (MWF) - Dr. Enriquez on consult 3. Symptomatic Anemia - likely 2/2 underlying ESRD and Chemotherapy - s/p transfusion of 6 U PRBC - No evidence of bleeding - HG stable - c/w Aranesp 4. Elevated Troponin - likely 2/2 Demand Ischemia - 2/2 Symptomatic Anemia - No symptoms of chest pain - EKG with no acute ST-T changes - Peak Troponin of 0.20 on 11/28/16; has trended down - ECHO: Preserved EF; Severe MR, Elevated RV pressure (likely 2/2 mediastinal mass) 5. Hypertension - well controlled 6. Dyslipidemia - c/w statin 7. Diabetes mellitus - c/w ISS 8. Hypothyroidism - c/w Synthroid 9. Dementia - c/w donepezil 10. Depression - Reported to have suicidal ideation today - Will get evaluation by Psychiatry today - c/w Seroquel 11. History of breast cancer with left mastectomy 12. GERD - Continue PPI 13 DVT prophylaxis - c/w Heparin SC Disposition: - Has bed placement tomorrow - Will likely go with PICC line for chemotherapy in interim; discussed with Dr. Edie Marquez - Will discuss with Dr. Graf about suicidal ideation - will need clearance - c/w Physical therapy VS,Fishbone, I+O VS, Fishbone, I+O Laboratory Tests 12/22/16 11:35 Red Blood Count 3.25 L, Mean Corpuscular Volume 95.1, Mean Corpuscular Hemoglobin 31.3, Mean Corpuscular Hemoglobin Concent 33.0, Red Cell Distribution Width 17.0 H, Calcium Level 10.0 Vital Signs Date Time Temp Pulse Resp B/P (MAP) Pulse Ox O2 Delivery O2 Flow Rate FiO2 12/22/16 06:00 98.7 98 18 109/70 (83) 90 Room Air I&O- Last 24 Hours up to 6 AM 12/22/16 06:00 Intake Total 910 ml Output Total 0 ml Balance 910 ml MEAGAN LLOYD MD Dec 22, 2016 15:09
[2016-12-22] MEDS ORDERED: QUET1TAB7 PO ×2 (15:37→17:02)
[2016-12-22] MEDS ORDERED: RENV2TAB PO ×2 (15:37→17:02)
[2016-12-22] MEDS ORDERED: ARIC1TAB PO ×2 (15:37→17:02)
[2016-12-22] MEDS ORDERED: LEVO25TA5 PO ×2 (15:37→17:02)
[2016-12-22] MEDS ORDERED: ASPI81TAEC PO ×2 (15:37→17:02)
[2016-12-22] MEDS ORDERED: GLIP5TAB8 PO ×2 (15:37→17:02)
[2016-12-22] MEDS ORDERED: PRAV10TA4 PO ×3 (15:37→17:04)
[2016-12-22] MEDS ORDERED: IPRASOL4 NEB ×2 (15:37)
[2016-12-22] MEDS ORDERED: ALPR0.25 PO ×2 (15:37→17:02)
[2016-12-22] MEDS ORDERED: PANT40TA2 PO ×2 (15:37→17:02)
[2016-12-22] MEDS ORDERED: ALLO10TA PO ×2 (15:37→17:02)
[2016-12-22] MEDS ORDERED: FAMO20TA PO ×2 (15:37→17:02)
[2016-12-22] MEDS ORDERED: CINA30TA PO ×2 (15:37→17:02)
[2016-12-22] MEDS ORDERED: ALBU17IN INH (16:59)
[2016-12-22] MEDS: ALPRAZolam 0.25 MG TAB PO PRN (19:23)
[2016-12-22] MEDS: PRAVASTATIN 10 MG TAB PO SCH (21:23)
[2016-12-22] MEDS: QUEtiapine FUMARATE 25 MG TAB PO SCH (21:23)
[2016-12-22 22:00] VITALS: BP 163/73
[2016-12-23] MEDS: IPRATROPIUM 0.5MG/ALBUTEROL 2.5MG INH SOL UD 3ML (DUONEB)(J7620) NEB SCH ×4 (02:00→19:07)
[2016-12-23] MEDS: HEPARIN SOD (PORCINE) 5000 UNITS/ML VIAL SQ SCH ×3 (05:34→21:12)
[2016-12-23] MEDS: LEVOTHYROXINE 25MCG TABLET (0.025MG) PO SCH (05:34)
[2016-12-23] MEDS: SODIUM CHLORIDE 0.9% INJ 10 ML SYR IV SCH ×2 (05:34→17:28)
[2016-12-23 06:00] VITALS: BP 115/65
[2016-12-23 06:56] LABS: MEAN CORPUSCULAR HEMOGLOBIN 31.6 pg (27.0-33.0); MEAN CORPUSCULAR HGB CONC 32.8 g/dl (32.0-36.5); MEAN CORPUSCULAR VOLUME 96.3 fl (80.0-96.0); RED CELL DISTRIBUTION WIDTH 17.5 % (11.5-14.5); WHITE BLOOD COUNT 3.1 K/mm3 (4.0-10.0)
[2016-12-23 07:09] LABS: CALCIUM LEVEL 9.8 MG/DL (8.8-10.2); CREATININE FOR GFR 3.51 MG/DL (0.55-1.02); GLOMERULAR FILTRATION RATE 13.2 (>32); POTASSIUM SERUM 4.6 MEQ/L (3.5-5.1)
--- NOTE | 2016-12-23 08:24 | IPN ---
DATE: 12/22/2016 SUBJECTIVE: Patient was seen and examined at the beside today morning. During hemodialysis procedure, patient was tolerating the hemodialysis procedure well. No apparent distress at this time. REVIEW OF SYSTEMS: Patient denies any fevers, chills, rigors, headache, nausea, vomiting, chest pain, shortness of breath. Patient wants to go home at this time. The rest of review of system is negative. OBJECTIVE: VITAL SIGNS: Temperature is 98.7 degrees Fahrenheit, blood pressure is 109/70, pulse is 98, respiratory rate of 18, saturating 90% on room air. INTAKE AND OUTPUT: Urine output is not recorded. Weight on the bed scale is 70.2 kg today. PHYSICAL EXAMINATION: GENERAL: Patient is awake, alert, oriented times three laying in bed, getting hemodialysis done. No apparent distress. HEAD AND NECK EXAM: Extraocular muscles intact. Pupils equally round and reactive to light. Mucous membranes are moist. Neck is supple, there is no jugular venous distention (JVD). CARDIOVASCULAR: S1, S2. Regular rate. No murmur, rub or gallop. RESPIRATORY: Chest is clear to auscultation bilaterally. Bilateral equal air entry. No rales or rhonchi. AV ACCESS: The patient has a right IJ tunneled hemodialysis catheter. ABDOMEN: Soft, positive bowel sounds, nontender, no ascites, no organomegaly. MUSCULOSKELETAL: Patient has left upper arm lymphedema, which is covered with a compression bandage. She has trace edema of the bilateral lower extremities and she has a right transmetatarsal amputation. CENTRAL NERVOUS SYSTEM: No focal neurological deficit. Power is 5/5 in bilateral upper extremities. LAB REVIEW: CBC showed WBC of 4, hemoglobin is 10.2, platelets of 144. BMP showed sodium 138, potassium 3.8, chloride 103, bicarbonate 29, BUN 19, creatinine 1.7. CURRENT INPATIENT MEDICATIONS: Patient's medications were all reviewed by me. There is no change in the medications today as compared with yesterday. ASSESSMENT: 81-year-old female with past medical history of end stage renal disease on hemodialysis every Sunday, Sunday, Sunday, admitted to the hospital with shortness of breath and anemia. She was later on found out to have small cell cancer of the lung. She was started on palliative chemotherapy during his hospitalization. PLAN: 1. End stage renal disease on hemodialysis. Patient is being dialyzed according to her regular schedule. I shall try to do an ultrafiltration of about 2 kg as tolerated by her blood pressure. 2. Anemia and end stage renal disease and currently on chemotherapy as well. Patient was anemic. She required 2 units of packed red blood cells transfusion in the last two days. Hemoglobin is optimal. It is more than 10 at this time. Continue current dose of Aranesp 300 mcg IV with hemodialysis once a week as well. 3. Small cell cancer of the lung. Patient is getting palliative chemotherapy. Management is as per hematology/oncology. 4. Discharge planning. It is okay to discharge the patient from a nephrology standpoint if she is stable by tomorrow morning.
[2016-12-23] MEDS: (RENVELA) SEVELAMER **CARBONate** 800 MG TAB PO SCH ×3 (08:29→17:28)
[2016-12-23] MEDS: FAMOTIDINE 20 MG TAB PO SCH (08:29)
[2016-12-23] MEDS: PANTOPRAZOLE 40MG TAB (PROTONIX) PO SCH (08:29)
[2016-12-23] MEDS: ASPIRIN 81 MG ENTERIC TAB PO SCH (08:29)
[2016-12-23] MEDS: DONEPEZIL 5 MG TAB PO SCH (08:29)
[2016-12-23] MEDS: ALLOPURINOL 100 MG TAB PO SCH ×2 (08:30→21:12)
[2016-12-23] MEDS: glipiZIDE (GLUCOTROL) 5 MG TAB PO SCH (08:30)
--- NOTE | 2016-12-23 13:58 | IPNPDOC ---
Text Note Date of Service The patient was seen on 12/23/16. NOTE Subjective: Patient is an 81 year old female with a PMHx of DM2, HTN, DLP, ESRD on HD (MWF), Neuropathy, Dementia, Chronic anemia, Hyperparathyroidism, Hx of Diverticulosis / Diverticulitis and Left Breast CA (s/p Mastectomy) who presented as a transfer from [facility] because of SOB. Imaging indicated that she had a large mediastinal mass with vascularity suspicious for cancer. Her hospital course was complicated. 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 Patient was seen and examined at the bedside. Currently she has no complaints, she is looking forward to getting home. Objective: Vitals (See below) General: Lying in bed, no acute distress, comfortable, AAOx3 HEENT: NC, AT CVS: RRR, +S1S2 Lungs: Diminished lung sounds Abdomen: Soft, ND, NT, +BSx4 Extremities: +Chronic LUE swelling, 1+ LE edema Assessment and plan: Right suprahilar mass - 2/2 Small cell lung cancer - CT chest: Large Mediastinal Mass 7.5 x 7.5 cm concerning for possible malignancy - MRI Brain and CT Abd/Pel with no evidence of metastasis - s/p Biopsy on 11/28; positive for small cell - Dr. Cazares for oncology; Chemotherapy x 3 doses; Scheduled for chemotherapy next week - Will continue as an outpatient - c/w PICC line in interim; May need infusion port placement if continuing ESRD on HD (MWF) - s/p Dialysis on 12/22/16 - Dr. Enriquez on consult Symptomatic Anemia - likely 2/2 underlying ESRD and Chemotherapy - s/p transfusion of 6 U PRBC - No evidence of bleeding - HG stable - c/w Aranesp Elevated Troponin - likely 2/2 Demand Ischemia - 2/2 Symptomatic Anemia - No symptoms of chest pain - EKG with no acute ST-T changes - Peak Troponin of 0.20 on 11/28/16; has trended down - ECHO: Preserved EF; Severe MR, Elevated RV pressure (likely 2/2 mediastinal mass) Thrombocytopenia - possibly 2/2 chemotherapy, possibly 2/2 heparin (2/2 ELIS) - no signs of bleeding - will check Serotonin release assay - will continue to monitor for now Hypertension - well controlled Dyslipidemia - c/w statin Diabetes mellitus - c/w ISS Hypothyroidism - c/w Synthroid Dementia - c/w donepezil Depression - Psychiatry has evaluated; no suicidal ideations noted - c/w Seroquel History of breast cancer with left mastectomy GERD - Continue PPI DVT prophylaxis - c/w Heparin SC Disposition: - Has bed placement, but needs to have PICC managment confirmed by oncology - Will go with PICC line for chemotherapy in interim; discussed with Dr. Edie Marquez on 12/22 - c/w Physical therapy VS,Fishbone, I+O VS, Fishbone, I+O Laboratory Tests 12/23/16 06:41 Red Blood Count 3.00 L, Mean Corpuscular Volume 96.3 H, Mean Corpuscular Hemoglobin 31.6, Mean Corpuscular Hemoglobin Concent 32.8, Red Cell Distribution Width 17.5 H, Calcium Level 9.8 Vital Signs Date Time Temp Pulse Resp B/P (MAP) Pulse Ox O2 Delivery O2 Flow Rate FiO2 12/23/16 09:00 Room Air 12/23/16 06:00 98.4 83 18 115/65 (82) 93 I&O- Last 24 Hours up to 6 AM 12/23/16 05:59 Intake Total 1020 ml Output Total 2143 ml Balance -1123 ml MEAGAN LLOYD MD Dec 23, 2016 13:58
[2016-12-23 14:00] VITALS: BP 153/87
[2016-12-23] MEDS: QUEtiapine FUMARATE 25 MG TAB PO SCH (21:12)
[2016-12-23] MEDS: PRAVASTATIN 10 MG TAB PO SCH (21:13)
[2016-12-23 22:00] VITALS: BP 123/91
--- NOTE | 2016-12-23 22:35 | CR ---
DATE OF CONSULTATION: 12/22/2016 CHIEF COMPLAINT: Says feels discouraged. SUBJECTIVE: She is 81 years old, has multiple medical problems, end-stage renal disease, is dependent on dialysis, diabetes, hypertension, dementia, chronic anemia, hyperparathyroidism, history of diverticulitis, left breast cancer. She was admitted to the hospital on 11/27 because of shortness of breath on exertion. During the course of her stay, was found to have a large mediastinal mass, this was thought to be suspicious for cancer. Further investigations revealed small-cell carcinoma, and she has been receiving inpatient chemotherapy. She, at times, felt frustrated being here, with the whole process as well, and has expressed a sense of a wish to , there is some concern that she thought of suicide as well. The patient says at times has felt discouraged being here, and the treatments, as well as the wait, says that she has been told she will be leaving, only for the discharge to be postponed on various occasions, and this tends to discourage her. She denies that she is suicidal, says has no desires of harming herself, and that she would not know how to either. It should be noted, she is quite coherent and laughs when she says that. She has family in the area, one of her daughters was at the bedside when I saw the patient, but I saw the patient alone. She has a history of dementia apparently, per the chart. She acknowledges and says she has had increasing difficulties with her memory. Denies feeling depressed, however, but does say at times feels a bit discouraged. Says sleep has been poor, appetite is increased per the patient. PAST PSYCHIATRIC HISTORY: I am not aware of any history indicating any suicide attempts or any inpatient hospitalizations. Has been diagnosed with dementia, and has a history of cerebrovascular accident apparently. MEDICAL HISTORY: As indicated above, end-stage renal disease, she is on hemodialysis, hypertension, diabetes, chronic anemia. Also has a history of small-cell carcinoma. SOCIAL HISTORY: Says was living with her son and [id number]. She is now planning to go to a nursing or adult home, from what I understand. Says she has seen the place, and likes it. MENTAL STATUS EXAMINATION: She is sitting up in bed. She is neat. She is cooperative. No agitation. No psychomotor retardation. She is coherent, has a broad affect, and is laughing at times, congruent with what is being discussed, has a broad affect, denies any thoughts of harming herself. No evidence of any homicidal ideas or intents. Currently no evidence of any psychosis either. No fluctuation of consciousness. She is alert, oriented to place, person, but not fully to time. She knew it was December 2016. Intellect average. Judgment is good. Insight is fair to good. ASSESSMENT: 1. Adjustment disorder with depressed mood. 2. Neurocognitive disorder by history (dementia). The patient felt somewhat frustrated with her situation here, and particularly the wait for a bed outside this place. Says at times tends to get discouraged. Denies any suicidal thoughts or intents. RECOMMENDATIONS: Continue current care, optimize it, I would suggest consistent verbal support, and explanation of plans and interventions consistently. Her anxieties go up a bit once she moves to the new residence, and time for them to settle down is important. Thank you for the consult. If there are any questions, please call. The assessment took 25 minutes.
[2016-12-24] MEDS: IPRATROPIUM 0.5MG/ALBUTEROL 2.5MG INH SOL UD 3ML (DUONEB)(J7620) NEB SCH ×4 (02:00→19:25)
[2016-12-24] MEDS: LEVOTHYROXINE 25MCG TABLET (0.025MG) PO SCH (05:54)
[2016-12-24] MEDS: HEPARIN SOD (PORCINE) 5000 UNITS/ML VIAL SQ SCH ×3 (05:54→20:15)
[2016-12-24] MEDS: SODIUM CHLORIDE 0.9% INJ 10 ML SYR IV SCH ×2 (05:55→17:22)
[2016-12-24 06:00] VITALS: BP 153/63
[2016-12-24 06:48] LABS: MEAN CORPUSCULAR HGB CONC 31.6 g/dl (32.0-36.5); MEAN CORPUSCULAR VOLUME 97.9 fl (80.0-96.0); WHITE BLOOD COUNT 3.3 K/mm3 (4.0-10.0)
[2016-12-24 07:13] LABS: CREATININE FOR GFR 4.78 MG/DL (0.55-1.02); GLOMERULAR FILTRATION RATE 9.3 (>32); POTASSIUM SERUM 4.7 MEQ/L (3.5-5.1)
[2016-12-24] MEDS: (RENVELA) SEVELAMER **CARBONate** 800 MG TAB PO SCH ×3 (07:28→17:22)
[2016-12-24] MEDS: ASPIRIN 81 MG ENTERIC TAB PO SCH (07:28)
[2016-12-24] MEDS: PANTOPRAZOLE 40MG TAB (PROTONIX) PO SCH (07:28)
[2016-12-24] MEDS: FAMOTIDINE 20 MG TAB PO SCH (07:29)
[2016-12-24] MEDS: DONEPEZIL 5 MG TAB PO SCH (07:29)
[2016-12-24] MEDS: glipiZIDE (GLUCOTROL) 5 MG TAB PO SCH (07:29)
[2016-12-24] MEDS: ALLOPURINOL 100 MG TAB PO SCH ×2 (07:29→20:15)
--- NOTE | 2016-12-24 10:23 | IPNPDOC ---
Text Note Date of Service The patient was seen on 12/24/16. NOTE Subjective: Patient is an 81 year old female with a PMHx of DM2, HTN, DLP, ESRD on HD (MWF), Neuropathy, Dementia, Chronic anemia, Hyperparathyroidism, Hx of Diverticulosis / Diverticulitis and Left Breast CA (s/p Mastectomy) who presented as a transfer from [facility] because of SOB. Imaging indicated that she had a large mediastinal mass with vascularity suspicious for cancer. Her hospital course was complicated. 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 Patient was seen and examined at the bedside. Wants to get home as soon as possible. No other complaints. Objective: Vitals (See below) General: Lying in bed, no acute distress, comfortable, AAOx3 HEENT: NC, AT CVS: RRR, +S1S2 Lungs: Diminished lung sounds Abdomen: Soft, ND, NT, +BSx4 Extremities: +Chronic LUE swelling, 1+ LE edema bilaterally Assessment and plan: Right suprahilar mass - 2/2 Small cell lung cancer - CT chest: Large Mediastinal Mass 7.5 x 7.5 cm concerning for possible malignancy - MRI Brain and CT Abd/Pel with no evidence of metastasis - s/p Biopsy on 11/28; positive for small cell - Dr. Cazares for oncology; Chemotherapy x 3 doses; Scheduled for chemotherapy next week - Will continue as an outpatient via PICC line - May need infusion port placement if continuing; will discuss with Dr. Wong ESRD on HD (MWF) - s/p Dialysis on 12/22/16 - Dr. Enriquez on consult Symptomatic Anemia - likely 2/2 underlying ESRD and Chemotherapy - s/p transfusion of 6 U PRBC - No evidence of bleeding - Hg stable - c/w Aranesp s/p Elevated Troponin - likely 2/2 Demand Ischemia - 2/2 Symptomatic Anemia - No symptoms of chest pain - EKG with no acute ST-T changes - Peak Troponin of 0.20 on 11/28/16; has trended down - ECHO: Preserved EF; Severe MR, Elevated RV pressure (likely 2/2 mediastinal mass) Thrombocytopenia - possibly 2/2 chemotherapy, possibly 2/2 heparin (2/2 ELIS) - no signs of bleeding - Platelet count stable - Serotonin release assay pending - will continue to follow Hypertension - well controlled Dyslipidemia - c/w statin Diabetes mellitus - c/w ISS Hypothyroidism - c/w Synthroid Dementia - c/w donepezil Depression - Psychiatry has evaluated; no suicidal ideations noted - c/w verbal support - c/w Seroquel History of breast cancer with left mastectomy GERD - Continue PPI DVT prophylaxis - c/w Heparin SC Disposition: - Has bed placement, but needs to have PICC management confirmed by Oncology ( will discuss with Dr. Wong on Sunday) - Will go with PICC line for chemotherapy in interim; discussed with Dr. Edie Marquez on 12/22 - c/w Physical therapy VS,Fishbone, I+O VS, Fishbone, I+O Laboratory Tests 12/24/16 06:34 Red Blood Count 3.27 L, Mean Corpuscular Volume 97.9 H, Mean Corpuscular Hemoglobin 31.0, Mean Corpuscular Hemoglobin Concent 31.6 L, Red Cell Distribution Width 18.0 H, Calcium Level 10.0 Vital Signs Date Time Temp Pulse Resp B/P (MAP) Pulse Ox O2 Delivery O2 Flow Rate FiO2 12/24/16 06:00 98.2 93 18 153/63 (93) 95 Room Air I&O- Last 24 Hours up to 6 AM 12/24/16 05:59 Intake Total 1380 ml Output Total 0 ml Balance 1380 ml MEAGAN LLOYD MD Dec 24, 2016 10:23
[2016-12-24 14:00] VITALS: BP 148/66
[2016-12-24] MEDS: QUEtiapine FUMARATE 25 MG TAB PO SCH (20:15)
[2016-12-24] MEDS: SODIUM CHLORIDE 0.9% INJ 10 ML SYR IV PRN (20:15)
[2016-12-24] MEDS: PRAVASTATIN 10 MG TAB PO SCH (20:15)
[2016-12-24 22:00] VITALS: BP 120/73
[2016-12-25] MEDS: IPRATROPIUM 0.5MG/ALBUTEROL 2.5MG INH SOL UD 3ML (DUONEB)(J7620) NEB SCH ×2 (01:11→07:16)
[2016-12-25] MEDS: SODIUM CHLORIDE 0.9% INJ 10 ML SYR IV SCH (05:37)
[2016-12-25] MEDS: LEVOTHYROXINE 25MCG TABLET (0.025MG) PO SCH (05:37)
[2016-12-25] MEDS: HEPARIN SOD (PORCINE) 5000 UNITS/ML VIAL SQ SCH (05:37)
[2016-12-25 06:00] VITALS: BP 113/76
[2016-12-25 07:20] LABS: CALCIUM LEVEL 9.9 MG/DL (8.8-10.2); CREATININE FOR GFR 5.66 MG/DL (0.55-1.02); GLOMERULAR FILTRATION RATE 7.6 (>32); POTASSIUM SERUM 5.1 MEQ/L (3.5-5.1)
[2016-12-25 08:24] LABS: MEAN CORPUSCULAR HEMOGLOBIN 30.7 pg (27.0-33.0); MEAN CORPUSCULAR HGB CONC 31.3 g/dl (32.0-36.5); MEAN CORPUSCULAR VOLUME 98.1 fl (80.0-96.0); RED CELL DISTRIBUTION WIDTH 18.6 % (11.5-14.5); WHITE BLOOD COUNT 2.8 K/mm3 (4.0-10.0)
[2016-12-25] MEDS: (RENVELA) SEVELAMER **CARBONate** 800 MG TAB PO SCH (09:21)
[2016-12-25] MEDS: ALLOPURINOL 100 MG TAB PO SCH (09:22)
[2016-12-25] MEDS: ASPIRIN 81 MG ENTERIC TAB PO SCH (09:22)
[2016-12-25] MEDS: FAMOTIDINE 20 MG TAB PO SCH (09:22)
[2016-12-25] MEDS: PANTOPRAZOLE 40MG TAB (PROTONIX) PO SCH (09:22)
[2016-12-25] MEDS: DONEPEZIL 5 MG TAB PO SCH (09:22)
[2016-12-25] MEDS: CINACALCET 30 MG TAB (SENSIPAR) PO SCH (09:22)
[2016-12-25] MEDS: glipiZIDE (GLUCOTROL) 5 MG TAB PO SCH (09:23)
[2016-12-25 10:00] VITALS: BP 132/68
--- NOTE | 2016-12-25 13:59 | NOCOX ---
DATE OF PROCEDURE: 12/25/2069 Nocturnal oximetry was recorded on 12/24/2016 to 12/25/2016. The patient was on room air during the entire study. Resting oxygen saturation was 97%. Resting heart rate was 90. There was no time spent with an oxygen saturation less than 88%. Oxygen saturation ranged from 89 to 98%. Heart rate ranged from 73 to 96. A total recording time was 8 hours and 17 minutes. There was minimal variation in oxygen saturation with a moderate amount of heart rate variability. No significant apneas. No prolonged hypoxia. IMPRESSION Minimal variable desaturations with no significant hypoxia. If there is concern for obstructive sleep apnea, would recommend formal polysomnogram.
[2016-12-30 10:10] LABS: UNFRACTIONATED HEPARIN HI DOSE 7 % (0-20); UNFRACTIONATED HEPARIN LOW DOS 25 % (0-20)
--- NOTE | 2016-12-31 22:20 | DSES ---
DATE OF ADMISSION: 11/27/2016 DATE OF DISCHARGE: 12/25/2016 DISCHARGE DIAGNOSES: 1. Small cell lung cancer with right suprahilar mass, status post chemotherapy. 2. End-stage renal disease on hemodialysis. 3. Symptomatic anemia. 4. Thrombocytopenia, possibly due to chemotherapy. 5. Elevated troponins, due to demand ischemia and symptomatic anemia. 6. Hypertension. 7. Dyslipidemia. 8. Diabetes. 9. Hypothyroidism. 10. Dementia. 11. Depression. 12. History of breast cancer with left mastectomy. 13. Gastroesophageal reflux disease (GERD). 14. Adjustment disorder. 15. Chronic left arm lymphedema. 16. Abdominal aortic aneurysm. 17. Partial lung collapse. 18. Pancytopenia. DISCHARGE MEDICATIONS: - albuterol two puff inhalation every two hours as needed for shortness of breath - allopurinol 200 mg by mouth twice a day - alprazolam 0.25 mg by mouth every six hours as needed for anxiety - aspirin 81 mg daily - Sensipar 30 mg by mouth on Mondays and Fridays. - donepezil 10 mg by mouth daily - famotidine 20 mg by mouth daily - glipizide 5 mg by mouth daily - Synthroid 25 mcg by mouth daily - pantoprazole 40 mg by mouth daily - pravastatin 10 mg at bedtime - quetiapine 25 mg at bedtime - Renvela 800 mg with meals HOSPITAL COURSE: This is an 81-year-old female with a long hospital course, who presented initially as a transfer from [facility] on 11/27/2016. The patient had presented to the other hospital with shortness of breath which was felt to be due to her worsening chronic anemia and fluid overload. The patient was felt to be in congestive heart failure and also had heme-positive stools. As the day was her dialysis day, so she was transferred to our hospital for dialysis and transfusion. The patient was urgently given her dialysis along with blood transfusion two units. Not much fluid could be mobilized because of extreme cramps and drop in blood pressure, and it was felt that patient's shortness of breath could be related to some other lung problem. The patient underwent CT scan of the chest with intravenous (IV) contrast, and was found to have a large right suprahilar mediastinal mass with areas of subtle enhancement and scattered calcifications, and a 1.0 cm similar lesion in the posterior right paramediastinal right upper lobe, along with suspected subtle conglomerate mediastinal and hilar lymphadenopathy. There was also bilateral basilar atelectasis versus consolidation. There was also an abdominal aortic aneurysm with extensive atherosclerotic changes. The patient subsequently underwent CT-guided biopsy of the mass and which was found to be small-cell carcinoma. Oncology was consulted. The patient had staging of the cancer done in the hospital with MRI of the brain, CT scan of abdomen and pelvis. The patient was started on palliative chemotherapy in the hospital with carboplatin etoposide. The patient was also found to have partial collapse of the lung due to the mass. The patient was able to tolerate her chemotherapy. The patient did have a peripherally inserted central catheter (PICC) line placed for her chemotherapy which was kept on discharge so that it can be used for the next cycle of chemotherapy. The patient was continued on her hemodialysis as per schedule in the hospital. The patient did respond a little bit to treatment and her shortness of breath improved. The patient will need infusion port placed if chemotherapy is continued, the decision of which is going to be made by Dr. Wong. The patient was subsequently discharged to an adult home with a PICC line. On the day of discharge, the patient's symptoms were controlled, her vitals were stable, and she was functionally close to her baseline. PHYSICAL EXAMINATION: VITAL SIGNS: Temperature 97.8, pulse 78, respiratory rate 18, blood pressure 132/68, pulse oximetry 98% with two liters nasal cannula. GENERAL: The patient awake, alert, and oriented times three, sitting up in chair in no acute distress. HEENT: Normocephalic, atraumatic. Moist mucous membranes. Anicteric eyes. CHEST: Bilateral basal crackles. Decreased air entry. CARDIOVASCULAR: S1, S2 regular. No murmur, rub, or gallop. ABDOMEN: Obese, soft, nontender. Bowel sounds present. EXTREMITIES: No edema. LABORATORY DATA: WBC 2.8, hemoglobin 9.9, platelets 138. Sodium 136, potassium 5.1, chloride 105, bicarbonate 23, BUN 49, creatinine 5.6, glucose 92, calcium 9.9. A sed rate result was low positive. DISPOSITION: The patient is discharged to an adult home. DISCHARGE INSTRUCTIONS: Patient to followup with oncology within one week. Patient to followup at her dialysis center in [place] as outpatient schedule. Patient to followup with primary care provider within one week. Primary care provider is going to take care of the PICC line. Regular diet. Activity as tolerated. MTDD
== END 2016-12-25 12:25 | disposition home health service (06) | DRG 180 ==
LOC: M MSPAV 15:16 → M PCU 19:40 → M MSPAV 12-03 14:15 → M ICU 12-07 17:30 → M MS5PR 12-12 14:14
PROVIDERS: ATTEND Internal Medicine Nephrology
PROC: 5A1D60Z (ICD-10-PCS; 2016-11-27)
PROC: 0WBC3ZX Excision of Mediastinum, Percutaneous Approach, Diagnostic (ICD-10-PCS; principal; 2016-11-28)
PROC: 30233N1 Transfusion of Nonautologous Red Blood Cells into Peripheral Vein, Percutaneous Approach (ICD-10-PCS; 2016-11-28)
PROC: 02HV33Z Insertion of Infusion Device into Superior Vena Cava, Percutaneous Approach (ICD-10-PCS; 2016-12-11)
DX: C38.1 Malignant neoplasm of anterior mediastinum (principal); N18.6 End stage renal disease; I24.8 Other forms of acute ischemic heart disease; D61.818 Other pancytopenia; N25.81 Secondary hyperparathyroidism of renal origin; E87.0 Hyperosmolality and hypernatremia; I13.2 Hypertensive heart and chronic kidney disease with heart failure and with stage 5 chronic kidney disease, or end stage renal disease; E83.39 Other disorders of phosphorus metabolism; I50.9 Heart failure, unspecified; D64.81 Anemia due to antineoplastic chemotherapy; Z66 Do not resuscitate; D69.6 Thrombocytopenia, unspecified; E78.5 Hyperlipidemia, unspecified; E11.40 Type 2 diabetes mellitus with diabetic neuropathy, unspecified; F32.9 Major depressive disorder, single episode, unspecified; I71.4 Abdominal aortic aneurysm, without rupture; K21.9 Gastro-esophageal reflux disease without esophagitis; F03.90 Unspecified dementia, unspecified severity, without behavioral disturbance, psychotic disturbance, mood disturbance, and anxiety; E03.9 Hypothyroidism, unspecified; Z85.3 Personal history of malignant neoplasm of breast; Z79.899 Other long term (current) drug therapy; Z79.82 Long term (current) use of aspirin; Z88.5 Allergy status to narcotic agent; Z88.8 Allergy status to other drugs, medicaments and biological substances; Z88.0 Allergy status to penicillin; K57.30 Diverticulosis of large intestine without perforation or abscess without bleeding; G47.33 Obstructive sleep apnea (adult) (pediatric); Z79.4 Long term (current) use of insulin; I97.2 Postmastectomy lymphedema syndrome; D63.8 Anemia in other chronic diseases classified elsewhere; Z86.73 Personal history of transient ischemic attack (TIA), and cerebral infarction without residual deficits; Z87.891 Personal history of nicotine dependence; F41.9 Anxiety disorder, unspecified; I95.9 Hypotension, unspecified; F43.21 Adjustment disorder with depressed mood

== ENCOUNTER 2017-01-22 15:14 | Outpatient (CLI) | payer MEDICARE, MEDICAID ==
[~2017-01-22] VITALS: Ht 152.4 cm; Wt 63.6 kg
[~2017-01-22 15:14] MED LIST changes: +ACETAMINOPHEN TAB 650MG DOSE (2X325MG) PO SCH; +diphenhydrAMINE 25 MG CAP PO SCH
[2017-01-22 15:30] VITALS: BP 99/70
[2017-01-22] MEDS ORDERED: SODIUM CHLORIDE 0.9% INJ 10 ML SYR IV PRN (16:30)
[2017-01-22] MEDS ORDERED: SODIUM CHLORIDE 0.9% INJ 10 ML SYR IV SCH (18:00)
[2017-01-22 22:00] VITALS: BP 131/84
[2017-01-22] MEDS ORDERED: FUROSEMIDE 20 MG/2 ML VIAL (J1940) IV ONE (23:00)
== END 2017-01-23 00:43 | disposition home or self-care (01) ==
LOC: M OPCLI4PV 15:14 → M MSPAV 15:19 → M OPCLI4PV 01-23 00:43
PROVIDERS: ATTEND Internal Medicine Medical Oncology
DX: C34.90 Malignant neoplasm of unspecified part of unspecified bronchus or lung (principal); D64.9 Anemia, unspecified
CPT/HCPCS: 36430; 86850; 86870; 86900; 86901; 86920; J1940; P9016

== ENCOUNTER → 2017-01-22 | Outpatient (REF) | payer MEDICARE, MEDICAID ==
[~2017-01-22] MED LIST changes: +ALBU17IN INH; +ALLO10TA PO; +ALPR0.25 PO; +ARIC1TAB PO; +ASPI1TAB PO; +ASPI81TAEC PO; +CINA30TA PO; +CRAN450T4 PO; +DONETAB6 PO; +DRIS50002 PO; +FAMO20TA PO; +GLIP5TAB8 PO; +IPRASOL4 NEB; +ISOS30TA4 PO; +LEVO25TA5 PO; +LISI-542 PO; +METO1TAB87 PO; +PANT40TA2 PO; +PRAV10TA4 PO; +QUET1TAB7 PO; +QUET1TAB8 PO; +RENATAB5 PO; +RENV2TAB PO
== END ==
LOC: M LAB REF 14:30
PROVIDERS: ATTEND Internal Medicine Medical Oncology
DX: D64.9 Anemia, unspecified (principal)